=== PATIENT | male | born 1965 | race Caucasian/White ===

== ENCOUNTER 2021-03-01 13:59 | Outpatient (REF) | payer MEDICARE, SELFPAY ==
[2021-03-01 14:59] LABS: Erythrocyte Sedimentation Rate 3 MM/HR (0-15)
[2021-03-01 15:04] LABS: C Reactive Protein 0.02 mg/dL (< or = 0.50); Potassium 3.5 mmol/L (3.3-5.1)
[2021-03-02 08:42] LABS: Lyme Abs Screen <0.90 index
== END 2021-03-01 14:00 | disposition home or self-care (01) ==
LOC: HO.LNP 13:59
PROVIDERS: Visit Provider Internal Medicine
DX: E87.6 Hypokalemia (principal); M31.6 Other giant cell arteritis; T14.8XXA Other injury of unspecified body region, initial encounter
CPT/HCPCS: 84132; 85652; 86140; 86617; 86618

== ENCOUNTER 2021-08-09 10:08 | Outpatient (REF) | payer MEDICARE, SELFPAY ==
[2021-08-09 10:11] LABS: MANUAL DIFF FLAG NO
[2021-08-09 10:50] LABS: Basophils Percent Auto 0.7 % (0-2); Eosinophils Absolute Auto 0.2 X10*3/uL (0.0-0.4); Eosinophils Percent Auto 4.2 % (0-4); Hematocrit 39.3 % (42-52); Hemoglobin 13.7 g/dl (14.0-18.0); Imm Gran Abs Auto 0.01 X10*3/uL (0.00-0.03); Imm Gran Pct Auto 0.2 % (0.0-0.4); Lymphocytes Absolute Auto 1.7 X10*3/uL (1.2-4.9); Lymphocytes Percent Auto 28.6 % (20-40); Mean Corpuscular HGB Conc 34.9 g/dl (31.0-36.0); Mean Corpuscular Hemoglobin 31.3 pg (27.0-33.0); Mean Corpuscular Volume 89.7 fL (80-98); Mean Platelet Volume 9.1 fL (9.4-12.4); Monocytes Absolute Auto 0.5 X10*3/uL (0.1-1.2); Monocytes Percent Auto 8.1 % (2-11); Neutrophils Absolute Auto 3.4 X10*3/uL (2.0-8.3); Neutrophils Percent Auto 58.2 % (45-73); Platelet Count 196 X10*3/uL (160-400); Red Blood Count 4.38 X10*6/uL (4.60-5.80); Red Cell Distribution Width 13.2 % (11.0-16.0); White Blood Count 5.8 X10*3/uL (4.8-10.8)
[2021-08-09 11:07] LABS: Appearance Urine CLEAR; Color Urine YELLOW; Glucose Urine UA NEG (NEG); Leukocyte Esterase Urine NEG (NEG); Nitrite Urine NEG (NEG); PH 6.5 (5.0-8.0); Urine Blood NEG (NEG); Urine Ketones NEG (NEG); Urine Protein NEG (NEG-TRACE)
[2021-08-09 11:23] LABS: Alanine Aminotransferase 24 U/L (0-40); Albumin Level 4.2 g/dL (3.5-5.0); Alkaline Phosphatase 60 U/L (39-117); Anion Gap 10 (12-20); Aspartate Amino Transferase 21 U/L (5-37); Bilirubin Total 0.7 mg/dL (0.0-1.0); Blood Urea Nitrogen 21 mg/dL (9-16); Calcium 8.9 mg/dL (8.4-10.2); Carbon Dioxide 25 mmol/L (22-29); Chloride 107 mmol/L (96-108); Cholesterol 124 mg/dL; Estimated Glomerular Filt Rate > 60; Glucose Fasting 102 mg/dL (60-99); HDL Cholesterol 31 mg/dL; LDL Cholesterol Calculated 72 mg/dl; Potassium 3.4 mmol/L (3.3-5.1); Sodium 139 mmol/L (135-145); Total Protein 6.5 g/dL (6.5-8.0); Triglycerides 107 mg/dL
[2021-08-09 11:51] LABS: PSA,Total (Free>4and<10) 0.35 ng/mL (0.00-4.00)
[2021-08-09 12:49] LABS: Creatinine Urine 151.13 mg/dL; Microalbum/Creatinine Ratio Ur 5.2 ug/mg cr
[2021-08-10 07:31] LABS: Estimated Average Glucose 97 mg/dL
== END 2021-08-09 10:09 | disposition home or self-care (01) ==
LOC: HO.LNP 10:08
PROVIDERS: Visit Provider Internal Medicine
DX: Z00.00 Encounter for general adult medical examination without abnormal findings (principal); E87.6 Hypokalemia; R73.09 Other abnormal glucose; I10 Essential (primary) hypertension; Z12.5 Encounter for screening for malignant neoplasm of prostate
CPT/HCPCS: 80053; 80061; 81003; 82043; 83036; 84153; 85025

== ENCOUNTER 2021-08-15 15:37 | Outpatient (REF) | payer OTHER, SELFPAY ==
[2021-08-15 15:41] LABS: MANUAL DIFF FLAG NO
[2021-08-15 15:49] LABS: Basophils Percent Auto 0.6 % (0-2); Eosinophils Absolute Auto 0.2 X10*3/uL (0.0-0.4); Eosinophils Percent Auto 3.4 % (0-4); Hematocrit 40.4 % (42-52); Hemoglobin 14.2 g/dl (14.0-18.0); Imm Gran Abs Auto 0.03 X10*3/uL (0.00-0.03); Imm Gran Pct Auto 0.5 % (0.0-0.4); Lymphocytes Absolute Auto 1.3 X10*3/uL (1.2-4.9); Lymphocytes Percent Auto 20.2 % (20-40); Mean Corpuscular HGB Conc 35.1 g/dl (31.0-36.0); Mean Corpuscular Hemoglobin 31.7 pg (27.0-33.0); Mean Corpuscular Volume 90.2 fL (80-98); Mean Platelet Volume 9.2 fL (9.4-12.4); Monocytes Absolute Auto 0.5 X10*3/uL (0.1-1.2); Monocytes Percent Auto 7.3 % (2-11); Neutrophils Absolute Auto 4.4 X10*3/uL (2.0-8.3); Platelet Count 218 X10*3/uL (160-400); Red Blood Count 4.48 X10*6/uL (4.60-5.80); Red Cell Distribution Width 13.4 % (11.0-16.0); White Blood Count 6.4 X10*3/uL (4.8-10.8)
[2021-08-15 16:23] LABS: Iron 74 mcg/dL (45-160); Percent Iron Saturation 28 % (15-50); Total Iron Binding Capacity 265 mcg/dL (228-428); Unsaturated Iron Binding 191 ug/dL
[2021-08-15 16:58] LABS: Folate 5.5 ng/mL (> or = 4.0); Vitamin B12 233 pg/mL (200-900)
== END 2021-08-15 15:38 | disposition home or self-care (01) ==
LOC: HO.LNP 15:37
PROVIDERS: Visit Provider Internal Medicine
DX: D63.8 Anemia in other chronic diseases classified elsewhere (principal)
CPT/HCPCS: 82607; 82746; 83540; 85025

== ENCOUNTER 2021-11-01 07:19 | Day surgery (SDC) | payer OTHER, SELFPAY ==
--- NOTE | 2021-10-31 13:19 | HO.ANESPROP2 ---
Documented by User: Loli Le NP 10/31/21 13:20 HPI - Anesthesia Eval Consult details Narrative: 56yo M for Upper Endoscopy and Colonoscopy FORMERLY [facility], [facility] Past Medical History Medical History Anemia GERD (gastroesophageal reflux disease) Surgical History Surgical History History of colon surgery Social History Social History Advance Directives: No Advance Directives Information Provided: No Exam Exam Date and Time: October 31, 2021 131 Pertinent Lab Results Pertinent Lab Results: Laboratory Tests 08/09/21 08/15/21 07:45 11:00 WBC 6.4 Hgb 14.2 Hct 40.4 L Plt Count 218 Sodium 139 Potassium 3.4 Chloride 107 Carbon Dioxide 25 BUN 21 H Creatinine 1.04 Assessment and Plan Assessment Anesthesia Assessment: Chart Reviewed Documented by User: Lucero Abraham MD 11/01/21 07:44 FOR[facility]LY [facility], [facility] Past Medical History Medical History Anemia GERD (gastroesophageal reflux disease) Functional capacity: independent ambulation Family History Family history of problems with anesthesia: No Surgical History Surgical History History of colon surgery History of Problems with Anesthesia: No Social History Social History Advance Directives: No Advance Directives Information Provided: No Exam Airway Mallampati Class: IV TM Dist: >3cm Neck ROM: Full Heart: RRR Lungs: CTA Assessment and Plan Assessment Anesthesia Assessment: Anesthesia Plan Discussed Final Anesthetic Review Family History of Problems with Anesthesia: No History of Problems with Anesthesia: No ASA Class: III Final Preanesthetic Review: No Changes in Pt Med Stat, Meds/Allgs Chart Reviewed, Consent Obtained/Reviewed and Anes Risks/Benef Reviewed Patient Risk: Low Procedure Risk: Low Anesthetic Plan Anesthetic Plan: MAC: Disposition: Standard PACU
[2021-11-01 08:04] VITALS: BP 122/87; PULSE 56; RESP 18; TEMP 36.5; O2SAT 98; BMI 29.5
--- NOTE | 2021-11-01 08:04 | MHC.SHP ---
Pre-Procedural Eval Section A Date of Service: 11/01/21 The patient is an INPATIENT: No Changes since office visit: No Cold of Flu in the past 2 weeks, No New Medical Problems, No Changes in Medication and No Patient answered all questions The History & Physical has been completed within 30 days and I have reviewed it.: Yes Section B Chief Complaint: Anemia, GERD Plan I have reviewed the history and physical and performed a pertinent physical examination on my patient. No changes have occurred unless specified.
[2021-11-01] MEDS: Lactated Ringers 1,000 ML 50 ML IVCONT (08:17)
[2021-11-01 09:04] VITALS: BP 118/80; PULSE 52; RESP 16; TEMP 36.3; O2SAT 100
--- NOTE | 2021-11-01 09:15 | P.BOP_ITS ---
Brief Operative Note Date of Service: 11/01/21 Pre-op diagnosis: anemia, gerd, change in bowels Post-op diagnosis: same (colon p olyps) Surgeon: Lucas Blanc Anesthesia: MAC Was an Payroll And Benefits Manager used for this Procedure?: No Estimated blood loss (mL): 5 Pathology: other (bxs antrum, duodenum, egj, polypps x2) Condition: stable Disposition: PACU
[2021-11-01 09:19] VITALS: BP 122/89; PULSE 56; RESP 16; TEMP 36.3; O2SAT 98
--- NOTE | 2021-11-01 09:54 | OP_ITS ---
SURGEON: Lucas Blanc MD INDICATIONS: Anemia and gastroesophageal reflux disease and change in bowel function. PREOPERATIVE DIAGNOSIS: POSTOPERATIVE DIAGNOSIS: PROCEDURE PERFORMED: ESTIMATED BLOOD LOSS: COMPLICATIONS: ANESTHESIA: ASSISTANTS: SPECIMENS: PROCEDURES: Upper endoscopy with biopsy, colonoscopy to the terminal ileum with biopsy. MEDICATIONS: Monitored anesthesia care. DESCRIPTION OF PROCEDURE: History and physical performed. The risks and benefits of the procedure were explained to the patient. Informed consent was obtained. The patient was placed in left lateral decubitus position. The Olympus video gastroscope was introduced into the esophagus, stomach, and duodenum. Examination was performed. The scope was removed. He was repositioned for colonoscopy. A digital rectal exam was performed and was found to be normal. The Olympus pediatric video colonoscope was introduced into the rectum and advanced to the cecum without difficulty. The cecum was identified by transillumination, palpation, and identification of ileocecal valve. Examination was performed. The scope was removed. He tolerated both procedures well and returned to recovery room in stable condition. FINDINGS: Upper endoscopy. Esophagus: The esophagus was normal. There was no esophagitis. The EG junction was slightly irregular. This was biopsied. Stomach: The stomach showed no evidence of masses, ulcers, or polyps. Antral biopsies were obtained to rule out H pylori. Duodenum: The bulb and second portion were normal. Biopsies were obtained from the second portion to evaluate for any malabsorption process. Colonoscopy: The terminal ileum was normal. The visualized colonic mucosa was normal. There was mild sigmoid diverticulosis. The sigmoid anastomosis from his prior resection could not be definitely identified. Two polyps were identified, removed with biopsy forceps. Both measured less than 5 mm and they were located at 15 cm and in the rectum. The quality of the prep was good. IMPRESSION: 1. Gastroesophageal reflux disease. 2. Colon polyps. 3. Diverticulosis. RECOMMENDATIONS: Follow up the biopsy results. MD KAMRON Lancaster/IAN / [id number]
--- NOTE | 2021-11-01 10:54 | HO.POSTANES ---
Post Anesthesia Evaluation Post Anesthesia Evaluation Vital Signs: Vital Signs Temp Pulse Resp BP Pulse Ox 11/01/21 09:19 97.3 F 56 16 122/89 98 11/01/21 09:04 97.3 F 52 16 118/80 100 11/01/21 08:04 97.7 F 56 18 122/87 98 Anesthesia: Monitored Mental Status: Awake Pain Control: Satisfactory Nausea/Vomiting: None Hydration: Adequate Anesthesia-Related Issues: No Anes. Related Issues
== END 2021-11-01 09:36 | disposition home or self-care (01) ==
PROVIDERS: PCP Internal Medicine; Visit Provider Internal Medicine Gastroenterology
PROC: (CPT 45380; principal; 2021-11-01 08:20)
DX: D64.9 Anemia, unspecified (principal); R19.4 Change in bowel habit; D12.7 Benign neoplasm of rectosigmoid junction; D12.8 Benign neoplasm of rectum; K57.30 Diverticulosis of large intestine without perforation or abscess without bleeding; K21.9 Gastro-esophageal reflux disease without esophagitis; Z90.49 Acquired absence of other specified parts of digestive tract; Z88.8 Allergy status to other drugs, medicaments and biological substances
CPT/HCPCS: 45380; 43239; 88305; 88342

== ENCOUNTER 2021-11-11 10:43 | Outpatient (REF) | payer OTHER, SELFPAY ==
[2021-11-11 10:46] LABS: MANUAL DIFF FLAG NO
[2021-11-11 11:17] LABS: Basophils Percent Auto 0.7 % (0-2); Eosinophils Absolute Auto 0.1 X10*3/uL (0.0-0.4); Eosinophils Percent Auto 3.2 % (0-4); Hematocrit 39.4 % (42.0-52.0); Hemoglobin 13.8 g/dl (14.0-18.0); Imm Gran Abs Auto 0.01 X10*3/uL (0.00-0.03); Imm Gran Pct Auto 0.2 % (0.0-0.4); Lymphocytes Absolute Auto 1.2 X10*3/uL (1.2-4.9); Lymphocytes Percent Auto 27.6 % (20-40); Mean Corpuscular Hemoglobin 31.5 pg (27.0-33.0); Mean Platelet Volume 9.2 fL (9.4-12.4); Monocytes Absolute Auto 0.4 X10*3/uL (0.1-1.2); Monocytes Percent Auto 8.3 % (2-11); Neutrophils Absolute Auto 2.6 x10*3/uL (2.0-8.3); Platelet Count 218 X10*3/uL (160-400); Red Blood Count 4.38 X10*6/uL (4.60-5.80); Red Cell Distribution Width 13.3 % (11.0-16.0); White Blood Count 4.3 X10*3/uL (4.8-10.8)
[2021-11-11 11:38] LABS: Alanine Aminotransferase 26 U/L (0-40); Albumin Level 4.1 g/dL (3.5-5.0); Alkaline Phosphatase 63 U/L (39-117); Anion Gap 10 (12-20); Aspartate Amino Transferase 25 U/L (5-37); Bilirubin Total 0.4 mg/dL (0.0-1.0); Blood Urea Nitrogen 21 mg/dL (9-16); Calcium 8.9 mg/dL (8.4-10.2); Carbon Dioxide 24 mmol/L (22-29); Chloride 110 mmol/L (96-108); Estimated Glomerular Filt Rate > 60; Glucose Random 106 mg/dL (60-115); Iron 120 mcg/dL (45-160); Percent Iron Saturation 44 % (15-50); Potassium 3.6 mmol/L (3.3-5.1); Sodium 140 mmol/L (135-145); Total Iron Binding Capacity 272 mcg/dL (228-428); Total Protein 6.9 g/dL (6.5-8.0); Unsaturated Iron Binding 152 ug/dL
[2021-11-11 11:53] LABS: Vitamin D 25-OH Total 19.6 ng/mL (>30)
[2021-11-11 12:34] LABS: Folate 11.3 ng/mL (> or = 4.0); Vitamin B12 279 pg/mL (200-900)
== END 2021-11-11 10:44 | disposition home or self-care (01) ==
LOC: HO.LNP 10:43
PROVIDERS: PCP Internal Medicine; Visit Provider Internal Medicine
DX: N18.9 Chronic kidney disease, unspecified (principal); D63.8 Anemia in other chronic diseases classified elsewhere; E87.6 Hypokalemia
CPT/HCPCS: 80053; 82306; 82607; 82746; 83540; 85025

== ENCOUNTER 2022-01-10 11:14 | Outpatient (REF) | payer OTHER, SELFPAY ==
[2022-01-10 11:20] LABS: MANUAL DIFF FLAG NO
[2022-01-10 11:27] LABS: Basophils Percent Auto 0.6 % (0-2); Eosinophils Absolute Auto 0.2 X10*3/uL (0.0-0.4); Eosinophils Percent Auto 4.5 % (0-4); Hemoglobin 13.9 g/dl (14.0-18.0); Imm Gran Abs Auto 0.01 X10*3/uL (0.00-0.03); Imm Gran Pct Auto 0.2 % (0.0-0.4); Lymphocytes Absolute Auto 1.8 X10*3/uL (1.2-4.9); Lymphocytes Percent Auto 34.9 % (20-40); Mean Corpuscular HGB Conc 34.8 g/dl (31.0-36.0); Mean Corpuscular Hemoglobin 30.9 pg (27.0-33.0); Mean Corpuscular Volume 88.9 fL (80.0-98.0); Monocytes Absolute Auto 0.5 X10*3/uL (0.1-1.2); Monocytes Percent Auto 8.8 % (2-11); Neutrophils Absolute Auto 2.6 x10*3/uL (2.0-8.3); Platelet Count 218 X10*3/uL (160-400); Red Cell Distribution Width 12.8 % (11.0-16.0); White Blood Count 5.1 X10*3/uL (4.8-10.8)
== END 2022-01-10 11:15 | disposition home or self-care (01) ==
LOC: HO.LNP 11:14
PROVIDERS: Visit Provider Internal Medicine
DX: D64.9 Anemia, unspecified (principal)
CPT/HCPCS: 85025

== ENCOUNTER 2022-09-08 10:28 | Outpatient (REF) | payer OTHER, SELFPAY ==
[2022-09-08 10:32] LABS: MANUAL DIFF FLAG NO
[2022-09-08 10:49] LABS: Basophils Percent Auto 0.8 % (0-2); Eosinophils Absolute Auto 0.3 X10*3/uL (0.0-0.4); Eosinophils Percent Auto 5.1 % (0-4); Hematocrit 42.9 % (42.0-52.0); Hemoglobin 15.2 g/dl (14.0-18.0); Imm Gran Abs Auto 0.01 X10*3/uL (0.00-0.03); Imm Gran Pct Auto 0.2 % (0.0-0.4); Lymphocytes Absolute Auto 1.8 X10*3/uL (1.2-4.9); Mean Corpuscular HGB Conc 35.4 g/dl (31.0-36.0); Mean Corpuscular Hemoglobin 31.5 pg (27.0-33.0); Mean Platelet Volume 9.1 fL (9.4-12.4); Monocytes Absolute Auto 0.4 X10*3/uL (0.1-1.2); Monocytes Percent Auto 7.1 % (2-11); NRBC Pct Auto 0.6 /100WBC (0.0-0.2); Neutrophils Absolute Auto 2.9 x10*3/uL (2.0-8.3); Neutrophils Percent Auto 53.8 % (45-73); Platelet Count 211 X10*3/uL (160-400); Red Blood Count 4.82 X10*6/uL (4.60-5.80); Red Cell Distribution Width 12.9 % (11.0-16.0); White Blood Count 5.3 X10*3/uL (4.8-10.8)
[2022-09-08 10:56] LABS: Appearance Urine Clear; Color Urine Dark Yellow; Glucose Urine UA Negative (Negative); Leukocyte Esterase Urine Negative (Negative); Nitrite Urine Negative (Negative); Urine Blood Negative (Negative); Urine Ketones Negative (Negative); Urine Protein Negative (Neg-Trace)
[2022-09-08 11:02] LABS: Bacteria Urine None Seen (None Seen); Hyaline Casts Urine 0-2 /LPF (0-2); RBC Urine 0-2 /HPF (0-2); Squamous Epithelial Cell Urine 0-2 /HPF (0-2); WBC Urine 0-5 /HPF (0-5)
[2022-09-08 11:10] LABS: Estimated Average Glucose 97 mg/dL
[2022-09-08 11:20] LABS: Alanine Aminotransferase 18 U/L (0-40); Albumin Level 4.7 g/dL (3.5-5.0); Alkaline Phosphatase 77 U/L (39-117); Anion Gap 14 (12-20); Aspartate Amino Transferase 23 U/L (5-37); Bilirubin Total 0.8 mg/dL (0.0-1.0); Blood Urea Nitrogen 16 mg/dL (9-16); Calcium 9.4 mg/dL (8.4-10.2); Carbon Dioxide 26 mmol/L (22-29); Chloride 105 mmol/L (96-108); Cholesterol 121 mg/dL; Estimated Glomerular Filt Rate > 60; Glucose Fasting 99 mg/dL (60-99); HDL Cholesterol 27 mg/dL; LDL Cholesterol Calculated 65 mg/dl; PSA,Total (Free>4and<10) 0.35 ng/mL (0.00-4.00); Potassium 4.2 mmol/L (3.3-5.1); Sodium 141 mmol/L (135-145); Total Protein 7.6 g/dL (6.5-8.0); Triglycerides 147 mg/dL
[2022-09-08 11:25] LABS: Creatinine Urine 211.48 mg/dL
== END 2022-09-08 10:29 | disposition home or self-care (01) ==
LOC: HO.LNP 10:28
PROVIDERS: Visit Provider Internal Medicine
DX: Z00.00 Encounter for general adult medical examination without abnormal findings (principal); E87.6 Hypokalemia; R73.09 Other abnormal glucose; I10 Essential (primary) hypertension; K75.81 Nonalcoholic steatohepatitis (NASH); D63.8 Anemia in other chronic diseases classified elsewhere; Z12.5 Encounter for screening for malignant neoplasm of prostate
CPT/HCPCS: 80053; 80061; 81001; 82043; 83036; 84153; 85025

== ENCOUNTER → 2023-04-14 11:29 | Outpatient (BNVA) | payer OTHER, SELFPAY | PROVIDERS: PCP Internal Medicine; Visit Provider Surgery Vascular Surgery ==

== ENCOUNTER → 2023-05-28 10:02 | Outpatient (BNVA) | payer OTHER, SELFPAY | PROVIDERS: PCP Internal Medicine; Visit Provider Surgery Vascular Surgery ==

== ENCOUNTER 2023-07-09 12:14 | Outpatient (REF) | payer OTHER, SELFPAY ==
[2023-07-09 12:19] LABS: MANUAL DIFF FLAG NO
[2023-07-09 12:25] LABS: Basophils Percent Auto 0.7 % (0-2); Eosinophils Absolute Auto 0.2 X10*3/uL (0.0-0.4); Eosinophils Percent Auto 4.2 % (0-4); Hematocrit 40.5 % (42.0-52.0); Imm Gran Abs Auto 0.01 X10*3/uL (0.00-0.03); Imm Gran Pct Auto 0.2 % (0.0-0.4); Lymphocytes Absolute Auto 1.4 X10*3/uL (1.2-4.9); Lymphocytes Percent Auto 29.8 % (20-40); Mean Corpuscular HGB Conc 34.6 g/dl (31.0-36.0); Mean Corpuscular Hemoglobin 31.5 pg (27.0-33.0); Mean Corpuscular Volume 91.2 fL (80.0-98.0); Mean Platelet Volume 9.3 fL (9.4-12.4); Monocytes Absolute Auto 0.4 X10*3/uL (0.1-1.2); Monocytes Percent Auto 8.3 % (2-11); Neutrophils Absolute Auto 2.6 x10*3/uL (2.0-8.3); Neutrophils Percent Auto 56.8 % (45-73); Platelet Count 197 X10*3/uL (160-400); Red Blood Count 4.44 X10*6/uL (4.60-5.80); Red Cell Distribution Width 13.2 % (11.0-16.0); White Blood Count 4.6 X10*3/uL (4.8-10.8)
[2023-07-09 12:30] LABS: Appearance Urine Clear; Color Urine Yellow; Glucose Urine UA Negative (Negative); Leukocyte Esterase Urine Negative (Negative); Nitrite Urine Negative (Negative); Specific Gravity - Urine 1.015 (1.005-1.025); Urine Blood Negative (Negative); Urine Ketones Negative (Negative); Urine Protein Negative (Neg-Trace)
[2023-07-09 12:32] LABS: Bacteria Urine None Seen (None Seen); Hyaline Casts Urine 0-2 /LPF (0-2); RBC Urine 0-2 /HPF (0-2); Squamous Epithelial Cell Urine 0-2 /HPF (0-2); WBC Urine 0-5 /HPF (0-5)
[2023-07-09 12:35] LABS: Alanine Aminotransferase 27 U/L (0-40); Albumin Level 4.4 g/dL (3.5-5.0); Alkaline Phosphatase 73 U/L (39-117); Anion Gap 10 (12-20); Aspartate Amino Transferase 27 U/L (5-37); Bilirubin Total 0.7 mg/dL (0.0-1.0); Blood Urea Nitrogen 17 mg/dL (9-16); Calcium 9.2 mg/dL (8.4-10.2); Carbon Dioxide 27 mmol/L (22-29); Chloride 106 mmol/L (96-108); Cholesterol 116 mg/dL; Estimated Average Glucose 94 mg/dL; Estimated Glomerular Filt Rate > 60; Glucose Fasting 100 mg/dL (60-99); HDL Cholesterol 32 mg/dL; Hemoglobin A1c % 4.9 %; LDL Cholesterol Calculated 68 mg/dl; Potassium 3.9 mmol/L (3.3-5.1); Sodium 139 mmol/L (135-145); Total Protein 7.4 g/dL (6.5-8.0); Triglycerides 83 mg/dL
[2023-07-09 12:55] LABS: PSA,Total (Free>4and<10) 0.27 ng/mL (0.00-4.00)
[2023-07-09 13:14] LABS: Creatinine Urine 102.31 mg/dL; Microalbum/Creatinine Ratio Ur 4.8 ug/mg cr
== END 2023-07-09 12:15 | disposition home or self-care (01) ==
LOC: HO.LNP 12:14
PROVIDERS: Visit Provider Internal Medicine
DX: Z00.00 Encounter for general adult medical examination without abnormal findings (principal); Z12.5 Encounter for screening for malignant neoplasm of prostate; I10 Essential (primary) hypertension; R73.03 Prediabetes; E87.6 Hypokalemia
CPT/HCPCS: 80053; 80061; 81001; 82043; 83036; 84153; 85025

== ENCOUNTER 2023-12-11 13:29 | Outpatient (REF) | payer OTHER, SELFPAY ==
[2023-12-11 16:13] LABS: IDNOW Serial# 08D9AD1C
[2023-12-11 16:14] LABS: Strep A Nucleic Acid Negative (Negative)
== END 2023-12-11 13:30 | disposition home or self-care (01) ==
LOC: HO.LAB 13:29
PROVIDERS: PCP Internal Medicine; Visit Provider Internal Medicine
DX: B37.0 Candidal stomatitis (principal); M51.16 Intervertebral disc disorders with radiculopathy, lumbar region
CPT/HCPCS: 87070; 87651

== ENCOUNTER 2024-04-21 10:51 | Outpatient (REF) | payer OTHER, SELFPAY ==
[2024-04-21 10:56] LABS: MANUAL DIFF FLAG NO
[2024-04-21 11:14] LABS: Appearance Urine Clear; Basophils Percent Auto 0.5 % (0-2); Color Urine Dark Yellow; Eosinophils Absolute Auto 0.1 X10*3/uL (0.0-0.4); Eosinophils Percent Auto 2.9 % (0-4); Glucose Urine UA Negative (Negative); Hemoglobin 14.5 g/dl (14.0-18.0); Imm Gran Abs Auto 0.01 X10*3/uL (0.00-0.03); Imm Gran Pct Auto 0.2 % (0.0-0.4); Leukocyte Esterase Urine Negative (Negative); Lymphocytes Absolute Auto 1.3 X10*3/uL (1.2-4.9); Lymphocytes Percent Auto 30.9 % (20-40); Mean Corpuscular HGB Conc 35.4 g/dl (31.0-36.0); Mean Corpuscular Hemoglobin 31.4 pg (27.0-33.0); Mean Corpuscular Volume 88.7 fL (80.0-98.0); Mean Platelet Volume 9.3 fL (9.4-12.4); Monocytes Absolute Auto 0.3 X10*3/uL (0.1-1.2); Monocytes Percent Auto 7.7 % (2-11); Neutrophils Absolute Auto 2.4 x10*3/uL (2.0-8.3); Neutrophils Percent Auto 57.8 % (45-73); Nitrite Urine Negative (Negative); Platelet Count 191 X10*3/uL (160-400); Red Blood Count 4.62 X10*6/uL (4.60-5.80); Red Cell Distribution Width 13.1 % (11.0-16.0); Specific Gravity - Urine 1.015 (1.005-1.025); Urine Blood Negative (Negative); Urine Ketones Negative (Negative); Urine Protein Negative (Neg-Trace); White Blood Count 4.1 X10*3/uL (4.8-10.8)
[2024-04-21 11:17] LABS: Bacteria Urine None Seen (None Seen); Hyaline Casts Urine 0-2 /LPF (0-2); RBC Urine 0-2 /HPF (0-2); Squamous Epithelial Cell Urine 0-2 /HPF (0-2); WBC Urine 0-5 /HPF (0-5)
[2024-04-21 11:32] LABS: Estimated Average Glucose 103 mg/dL; Hemoglobin A1c % 5.2 % (<6.0)
[2024-04-21 11:47] LABS: Alanine Aminotransferase 20 U/L (0-40); Albumin Level 4.4 g/dL (3.5-5.0); Alkaline Phosphatase 66 U/L (39-117); Anion Gap 12 (12-20); Aspartate Amino Transferase 19 U/L (5-37); Bilirubin Total 0.5 mg/dL (0.0-1.0); Blood Urea Nitrogen 12 mg/dL (9-16); Calcium 9.6 mg/dL (8.4-10.2); Carbon Dioxide 28 mmol/L (22-29); Chloride 105 mmol/L (96-108); Cholesterol 144 mg/dL (<200); Estimated Glomerular Filt Rate > 60; Glucose Fasting 101 mg/dL (60-99); HDL Cholesterol 34 mg/dL (>40); LDL Cholesterol Calculated 88 mg/dL (<100); Potassium 3.7 mmol/L (3.3-5.1); Sodium 141 mmol/L (135-145); Total Protein 7.1 g/dL (6.5-8.0); Triglycerides 112 mg/dL (<150)
[2024-04-21 12:23] LABS: Creatinine Urine 129.46 mg/dL; Microalbum/Creatinine Ratio Ur 6.9 ug/mg cr (<30)
== END 2024-04-21 10:52 | disposition home or self-care (01) ==
LOC: HO.LNP 10:51
PROVIDERS: Visit Provider Internal Medicine
DX: Z00.00 Encounter for general adult medical examination without abnormal findings (principal); E87.6 Hypokalemia; R73.09 Other abnormal glucose; I10 Essential (primary) hypertension; Z12.5 Encounter for screening for malignant neoplasm of prostate
CPT/HCPCS: 80053; 80061; 81001; 82043; 82570; 83036; 84153; 85025

== ENCOUNTER 2024-10-31 11:13 | Outpatient (REF) | payer OTHER, SELFPAY ==
[2024-10-31 12:03] LABS: PSA,Total (Free>4and<10) 0.38 ng/mL (0.00-4.00)
--- OUTSIDE RECORDS SUMMARY | 2024-11-02 15:06 | XMS_ITS ---
Author Organization Luke Almonte MD Address [address] [place] [phone] Care Team Providers Care Supervisor Cutting And Boning Name Role Phone Luke Almonte Primary Care Provider [phone] RESULTS Component Value Reference Range Notes PSA,Total (Free>4and<10) Reviewed date:10/31/2024 12:49:34 PM Interpretation: Performing Lab:[facility], [address] [place] [phone] Notes/Report: PSA,Total (Free>4and<10) 0.38 0.00-4.00 ng/mL A [...] Location Date Provider Diagnosis Luke Almonte MD [address] [place] [phone] 10/31/2024 Luke Almonte Rising PSA level R97.20 ASSESSMENTS Encounter Date Diagnosis Assessment Notes Treatment Notes Treatment Clinical Notes 10/31/2024 Rising PSA level (ICD-10 - R97.20) PLAN OF TREATMENT Next Appt Details Provider Name:Luke schulte, 04/24/2025 07:30:00 AM, [address] [place] [address], [place] [address], [place], [place], [phone], Provider Name:Luke schulte, 05/01/2025 01:00:00 PM, [address] [place] [address], [place] [address], [place], [place], [phone],
--- OUTSIDE RECORDS SUMMARY | 2024-11-02 15:06 | XMS_ITS ---
Author Organization Luke Almonte MD Address [address] [place] [phone] Care Team Providers Care Parent Partner Name Role Phone Luke Almonte Primary Care Provider [phone] ALLERGIES Allergen (clinical drug ingredient) Drug/Non Drug Allergy documented on EMR Reaction Allergy Type Onset Date Status rizatriptan Rizatriptan Benzoate rash Drug Allergy Active morphine Morphine Sulfate cardiac arrest Drug Allergy Active lisinopril Lisinopril rash Drug Allergy Activ e REASON FOR VISIT 6 mo f/u MEDICATIONS Medication SIG (Take, Route, Frequency, Duration) Notes [...] for 1 day(s) Active Vitamin B2 Active VITAL SIGNS BMI 27.87 kg/m2 11/01/2024 Blood pressure systolic 92 mm Hg 11/01/20 24 Blood pressure diastolic 66 mm Hg 024 Height 75 in 11/01/2024 Weight 223 lbs 11/01/2024 weight is down 4 pounds [facility] [place] 10-17-24 Encounters Encounter Location Date Provider Diagnosis Luke Almonte MD [address] [place] [address] [address] [place], [place] [phone] 11/01/2024 Luke Almonte Rising PSA level R97.20 and Fungal infection B49 ASSESSMENTS Encounter Date Diagnosis Assessment Notes Treatment Notes Treatment Clinical Notes 11/01/2024 Rising PSA level (ICD-10 - R97.20) has returned to normal 11/01/2024 Fungal infection (ICD-10 - B49) is going to go back on diflucan and is going to see derm in one month PLAN OF TREATMENT Medication Medication Name Sig Start Date Stop Date Notes Diflucan 100 MG 1 tablet Orally for 10 days 11/01/2024 Treatment Notes Assessment Notes Rising PSA level has returned to norm al Fungal infection is going to go back on diflucan and is going to see derm in one month Next Appt Details Follow Up: 6 Months complete , Reason: Provider Name:Luke schulte, 04/24/2025 07:30:00 AM, [address] [place] [address], Suite [facility], [place], [place], [phone], Provider Name:Luke schulte, 05/01/2025 01:00:00 PM, [address] [place] [address], [address], [place], [place], [phone], Progress Notes * Examination Category Sub-Category Detail Notes Genitourinary - Male SCROTUM: with a rash in inguinal crease General Examination GENERAL APPEARANCE: alert, w ell hydrated, in no distress
--- OUTSIDE RECORDS SUMMARY | 2024-11-02 15:06 | XMS_ITS ---
Author Organization Luke Almonte MD Address [address] [place] [phone] Care Team Providers Care Paper Sales Manager Name Role Phone Luke Almonte Primary Care Provider REASON FOR VISIT Resend Diflucan MEDICATIONS Medication SIG (Take, Route, Fr equency, Duration) Notes Start Date End Date Status Diflucan 100 MG 1 tablet Orally daily for 10 days 11/01/2024 Active Encounters Encounter Location Date Provider Diagnosis Luke Almonte MD [address] [place] [phone] 11/01/2024 Luke Almonte Rising PSA level R97.20 ASSESSMENTS Encounter Date Diagnosis Assessment Notes Treatment Notes Treatment Clinical Notes 11/01/2024 Rising PSA level (ICD-10 - R97.20) PLAN OF TREATMENT Medication Medication Name Sig Start Date Stop Date Notes Diflucan 100 MG 1 tablet Orally daily for 10 days 11/01/20 24 Next Appt Details Provider Name:Luke schulte, 04/24/2025 07:30:00 AM, [address] [place] [address], [address], [place], [phone], Provider Name:Luke schulte, 05/01/2025 01:00:00 PM, [address] [place] [address], [address], [place], [phone],
--- OUTSIDE RECORDS SUMMARY | 2024-11-02 15:07 | XMS_ITS | Patient Health Record ---
Author Organization Luke Almonte MD Address [address] [place] [address] [phone] Care Team Providers Care Carpenter Maintenance Name Role Phone Luke Almonte Primary Care Provider [phone] ALLERGIES Allergen (clinical drug ingredient) Drug/Non Drug Allergy documented on EMR Reaction Allergy Type Onset Date Status rizatriptan Rizatriptan Benzoate rash Drug Allergy Active morphine Morphine Sulfate cardiac arrest Drug Allergy Active lisinopril Lisinopril rash Drug Allergy Activ e RESULTS Component Value Reference Range Notes Throat Culture Reviewed date:12/13/2023 05:40:00 PM Interpretation: Performing Lab:[address] [phone] Notes/Report: Throat Culture No Group A Beta-hemolytic Streptococci isolated. Strep A Nucleic Acid Reviewed date:12/11/2023 04:41:48 PM Interpretation: Performing Lab:[address] [place] [address] Notes/Report: [employer] Serial# [id number] Strep A Nucleic Acid Negative Negative DONE BY ID#[id number] All test results must be correlated with clinical findings. This test has not been evaluated for monitoring treatment of infection. Additional follow-up testing using the culture method is required if the result is negative and clinical symptoms persist, or in the event of an acute rheumatic fever outbreak. Complete Blood Count Auto Di ff Reviewed date:04/21/2024 12:35:13 PM Interpretation: Performing Lab:[facility], [address] [place] [phone] Notes/Report: White Blood Count 4.1 4.8-10.8 X10*3/uL Red Blood Count 4.62 4.60-5.80 X10*6/uL Hemoglobin 14.5 14.0-18.0 g/dl Hematocrit 41.0 42.0-52.0 % Mean Corpuscular Volume 88.7 80.0-98.0 fL Mean Corpuscular Hemoglobin 31.4 27.0-33.0 pg Mean Corpuscular HGB Conc 35.4 31.0-36.0 g/dl Red Cell Distribution Width 13.1 11.0-16.0 % Platelet Count 191 160-400 X10*3/uL Mean Platelet Volume 9.3 9.4-12.4 fL Neutrophils Percent Auto 57.8 45-73 % Imm Gran Pct Auto 0.2 0.0-0.4 % Lymphocytes Percent Auto 30.9 20-40 % Monocytes Percent Auto 7.7 2-11 % Eosinophils Percent Auto 2.9 0-4 % Basophils Percent Auto 0.5 0-2 % NRBC Pct Auto 0.0 0.0-0.2 /100WBC Neutrophils Absolute Auto 2.4 2.0-8.3 x10*3/u L Imm Gran Abs Auto 0.01 0.00-0.03 X10*3/uL Lymphocytes Absolute Auto 1.3 1.2-4.9 X10*3/u L Monocytes Absolute Auto 0.3 0.1-1.2 X10*3/uL Eosinophils Absolute Auto 0.1 0.0-0.4 X10*3/u L Basophils Absolute Auto 0.0 0.0-0.2 X10*3/uL NRBC Abs Auto 0.000 0.0-0.012 X10*3/uL Comprehensive [place]. Panel Fa st Reviewed date:04/21/2024 05:00:39 PM Interpretation: Performing Lab:[facility], [address] [place] [phone] Notes/Report: Sodium 141 135-145 mmol/L Potassium 3.7 3.3-5.1 mmol/L Chloride 105 96-108 mmol/L Carbon Dioxide 28 22-29 mmol/L Anion Gap 12 12-20 Blood Urea Nitrogen 12 9-16 mg/dL Creatinine 1.07 0.5-1.4 mg/dL Estimated Glomerular Filt Rate > 60 NOTE: For -[place]au[place] individuals, multiply the result by 1.210. Chronic Kidney Disease: Estimated GFR < 60 mL/min/1.73m2 Severe Kidney Disease: Estimated GFR < 15 mL/min/1.73m2 Glucose Fasting 101 60-99 mg/dL A fasting glucose from 100-125 mg/dl is considered impaired (pre-diabetes). Calcium 9.6 8.4-10.2 mg/dL Bilirubin Total 0.5 0.0-1.0 mg/dL Aspartate Amino Transferase 19 5-37 U/L Alanine Aminotransferase 20 0-40 U/L Total Protein 7.1 6.5-8.0 g/dL Albumin Level 4.4 3.5-5.0 g/dL Alkaline Phosphatase 66 39-117 U/L Lipid Panel Reviewed date:04/21/2024 04:46:19 PM Interpretation: Performing Lab:[facility], [address] [place] [phone] Notes/Report: Triglycerides 112 <150 mg/dL Desirable Triglyceride: less than 150 mg/dL Borderline High Triglyceride 150-199 mg/dL High Triglyceride: 200-499 mg/dL Very High Triglyceride: greater than or equal to 5OO mg/dL Cholesterol 144 <200 mg/dL Desirable Cholesterol: less than 200 mg/dL Borderline High Cholesterol: 200-239 mg/dL High Cholesterol: greater than 239 mg/dL LDL Cholesterol Calculated 88 <100 mg/dL Desirable LDL: less than 100 mg/dL Near Optimal/Above Optimal LDL: 110-129 mg/dL Borderline High LDL: 130-159 mg/dL High LDL: 160-189 mg/dL Very High LDL: greater than or equal to 190 mg/dL HDL Cholesterol 34 >40 mg/dL Desirable HDL: greater than 40 mg/dL Note: This HDL assay may give artificially low results in patients with liver disease. PSA,Total (Free>4and<10) Reviewed date:10/31/2024 11:20:30 AM Interpretation:see back 10-28-2024 Performing Lab:[address] [phone] Notes/Report: PSA,Total (Free>4and<10) 1.10 0.00-4.00 ng/mL A Free PSA was not [...] Mercedes Alinity i Chemiluminescent Microparticle Immunoassay (CMIA) Microalbumin, Random Reviewed date:04/21/2024 04:53:06 PM Interpretation: Performing Lab:[address] [phone] Notes/Report: Creatinine Urine 129.46 Microalbumin Urine 9.0 Microalbum/Creatinine Ratio Ur 6.9 <30 ug/mg cr Albumin/Creatinine Ratio Reference Ranges: Normal: < 30 ug/mg creatinine Microalbuminuria: 30 - 300 ug/mg creatinine Clinical Albuminuria: > 300 ug/mg creatinine Hemoglobin A1c Reviewed date:04/21/2024 12:37:23 PM Interpretation: Performing Lab:[address] [phone] Notes/Report: Hemoglobin A1c % 5.2 <6.0 % Hemoglobin A1C Reference Range Adults: 4.8 - 6.0 % Non diabetic: < 6.0 % Goal: < 7.0 % Additional Action Suggested: > 8.0 % Note: Hemoglobin A1c results are invalid for patients with abnormal amounts of HbF. Blood transfusions may impact the HbA1c concentration in the patient sample. Estimated Average Glucose 103 eAG = Estimated average glucose which is %A1C expressed as average glucose, using the formula of the [id number]-[id number] Average Glucose study (ADAG), Diabetes Care, Vol.31,#8, 2007 UA ClnCatch+Micro w/rflx Cul t Reviewed date:04/21/2024 07:17:53 PM Interpretation: Performing Lab:[facility], [address] [place] [phone] Notes/Report: Urine, Clean Catch Color Urine Dark Yellow Appearance Urine Clear PH 8.0 5.0-9.0 Glucose Urine UA Negative Negative mg/dL Urine Blood Negative Negative Specific [place] - Urine 1.015 1.005-1.025 Urine Protein Negative Neg-Trace mg/dL Urine Ketones Negative Negative mg/dL Nitrite Urine Negative Negative Leukocyte Esterase Urine Negative Negative RBC Urine 0-2 0-2 /HPF WBC Urine 0-5 0-5 /HPF Squamous Epithelial Cell Urine 0-2 0-2 /HPF Bacteria Urine None Seen None Seen Hyaline Casts Urine 0-2 0-2 /LPF Occult Blood, Stool, Guaiac Reviewed date:04/28/2024 01:57:39 PM Interpretation:Negative Performing Lab: Notes/Report: Negative Occult Blood, Stool, Guaiac Neg PSA,Total (Free>4and<10) Reviewed date:10/31/2024 12:49:34 PM Interpretation: Performing Lab:[facility], [address] [place] [phone] Notes/Report: PSA,Total (Free>4and<10) 0.38 0.00-4.00 ng/mL A [...] i Chemiluminescent Microparticle Immunoassay (CMIA) REASON FOR REFERRAL No Information MEDICATIONS Medication SIG (Take, Route, Frequency, Duration) Notes Start Date End Date Status valACYclovir HCl 1 GM TAKE 1 TABLET BY Kelvin SANCHEZ TWICE DAILY FOR 5 DAYS for 5 Active ProAir RespiClick 108 (90 Base) MCG/ACT 2 puffs as needed Inhalation every 6 hrs for 25 Not-Taking Triamcinolone Acetonide 0.1 % 1 application Externally Two times a Week for 10 days 08/23/2024 Active Relpax 40 MG TAKE 1 TABLET BY JYOTI TH EVERY DAY NEEDED for 12 Not-Taking Omeprazole 20 MG TAKE 1 CAPSULE ONCE DAILY for 90 Active SUMAtriptan Succinate 100 TAKE 1 TABLET BY MOUTH DAILY for 9 Not-Taking Nurtec 75 MG 1 tablet on the tong ue and allow to dissolve Orally Active Ketoconazole 2 % 1 application Externally Once a day for 14 days 10/17/2024 Active Diflucan 100 MG 1 tablet Orally marco y for 10 days 11/01/2024 Active Rizatriptan Benzoate 5 MG 1 tablet Orall y Once a day for 1 day(s) Active Diflucan 100 MG 1 tablet Orally twic e a day for 14 days 08/23/2024 Not-Taking Vitamin B2 Active Naratriptan HCl 2.5 MG 1 tablet Orally O nce a day for 1 day(s) Not-Taking Lexapro 10 MG TAKE 1 TABLET ONCE DAILY Orally Active Topamax 50 MG 50mg mg PM Orally twice a day Not-Taking Triamcinolone Acetonide 0.5 % 1 application Externally Two times a Week for 30 days 08/15/2021 Active Potassium Chloride ER 8 MEQ take 1 tablet by mouth every day with food Orally Once a day for 90 days Not-Taking Aspir-Low 81 MG 1 tablet Orally Once a day for 30 day(s) 03/16/2023 Active Cyclobenzaprine HCl 10 MG TAKE 1/2 TABLE T BY MOUTH EVERY DAY AT BEDTIME for 60 Not-Taking Verapamil HCl ER 240 MG TAKE 1 TABLET ON CE A DAY for 90 Active Eletriptan Hydrobromide 40 MG 1 tablet Orally Once a day for 1 day(s) Not-Taking Ondansetron 4 MG 1 tablet on the tong ue and allow to dissolve Orally Once a day for 30 day(s) Active Permethrin 5 % 1 application Externally Two times a Week for 7 days 08/27/2020 Not-Taking IMMUNIZATIONS Vaccine Route Administration Date Status Comme nts Flu Vaccine IM Intramuscular 08/02/2012 Administered TDaP IM Intramuscular 03/25/2013 Administered Flu Vaccine IM Intramuscular 07/29/2013 Administered Flu Vaccine IM Intramuscular 09/29/2014 Administered Fluarix Quadrivalent IM Intramuscular 08/13/2015 Leola red Fluarix Quadrivalent Unknown 09/02/2016 Administered At work Fluarix Quadrivalent IM Intramuscular 08/28/2017 Adminenmanuel red Shingrix IM Intramuscular 07/30/2018 Administered Shingrix IM Intramuscular 09/28/2018 Administered Fluarix Quadrivalent IM Intramuscular 10/05/2018 Adminenmanuel red Tetanus Unknown 03/25/2013 Administered PPSV23 (Pnemovax) IM Intramuscular 02/01/2019 Administered Fluarix Quadrivalent IM Intramuscular 09/01/2019 Adminenmanuel carr Prevnar 13 IM Intramuscular 07/10/2020 Administered SARS-COV-2 Pfizer Unknown 03/26/2021 Administered SARS-COV-2 Pfizer Unknown 03/05/2021 Administered Fluarix Quadrivalent IM Intramuscular 08/15/2021 Adminenmanuel carr SARS-COV-2 Pfizer Unknown 09/28/2021 Administered Fluarix Quadrivalent IM Intramuscular 09/08/2022 Adminenmanuel carr TDaP Unknown 12/05/2022 Administered SARS-COV-2 Pfizer Unknown 12/05/2022 Administered Fluarix Quadrivalent IM Intramuscular 07/31/2023 Adminemnanuel carr Fluarix Quadrivalent - 150 IM Intramuscular 08/23/2024 Adm inistered SOCIAL HISTORY Tobacco Use: Social History Observation Description Date Details (start date - stop date) Never Smoker NA - NA Sex Assigned At : Social History Observation Description Sex Assigned At Unknown Tobacco Use/Smoking Question Answer Notes Patient is a nonsmoker Additional Findings: Tobacco Non-User Cu rrent non-smoker, currently using no form of tobacco Alcohol Screen Question Answer Notes Did you have a drink containing alcohol in the p ast year? 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 Celiac artery compression syndrome (2910012) Problem Nonalcoholic steatohepatitis (VÁZQUEZ) (K75.81) Active confirmed Problem Gastroesophageal reflux disease without esophagitis (K21.9) Active confirmed 324547110 Problem Essential hypertension (I10) Active confirmed 68975610 Problem Prediabetes (R73.09) Active confirmed 315074 Problem Migraine without aura and with status migrainosus, not intractable (G43.001) Active confirmed 843901845 Problem ZABRINA (obstructive sleep apnea) (G47.33) Active confirmed 63200483 Problem Mild intermittent asthmatic bronchitis with acute exacerbation (J45.21) Active confirmed 046720425 Problem Diverticular disease (K57.90) Active confirmed 669052576 Problem 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 89416082 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 559415048 VITAL SIGNS Blood pressure diastolic 66 mm Hg 11/01/2024 christina ght is down 4 pounds since 10-17-24 Height 75 in 11/01/2024 weight is down 4 pounds since 10-17-24 Blood pressure systolic 92 mm Hg 11/01/2024 weig ht is down 4 pounds since 10-17-24 Weight 223 lbs 11/01/2024 weight is down 4 pounds since 10-17-24 BMI 27.87 kg/m2 11/01/2024 weight is down 4 pounds since 10-17-24 Encounters Encounter Location Date Provider Diagnosis Luke Almonte MD [address] [place] [address] Drive [address] [place] [id number] 04/28/2024 Luke Almonte Abnormal bone xray R93.7 ; Annual physical exam Z00.00 ; Rising PSA level R97.20 ; Prediabetes R73.09 ; Gastroesophageal reflux disease without esophagitis K21.9 ; Colon cancer screening Z12.11 and Depression screening Z13.31 Luke Almonte MD [address] [place] [id number] 08/23/2024 Luke Almonte Encounter for immunization Z23 and Jock itch B35.6 Luke Almonte MD [address] [place] [address] [address] [place] [id number] 04/21/2024 Luke Almonte Annual physical exam Z00.00 ; Hypokalemia E87.6 ; Prediabetes R73.09 and Essential hypertension I10 Luke Almonte MD [address] [place] [address] [address] [place] [id number] 10/31/2024 Luke Almonte Rising PSA level R97 .20 Luke Almonte MD [address] [place] [id number] 01/22/2024 Luke Almonte Acute pain of right knee M25.561 and Essential hypertension I10 Luke Almonte MD [address] [place] [id number] 11/27/2023 Luke Almonte Lumbar disc disease with radiculopathy M51.16 Luke Almonte MD [address] [place] [id number] 12/11/2023 Luke Almonte Lumbar disc disease with radiculopathy M51.16 and Thrush, oral B37.0 Luke Almonte MD [address] [place] [id number] 11/01/2024 Luke Almonte Rising PSA level R97 .20 and Fungal infection B49 Luke Almonte MD [address] [place] [id number] 11/03/2023 Luke Almonte Acute colitis K52.9 and Diverticular disease K57.90 Luke Almonte MD [address] [place] [id number] 05/13/2024 Luke Almonte Cold sore B00.1 Luke Almonte MD [address] [place] [id number] 06/23/2024 Luke Almonte Migraine without aur a and with status migrainosus, not intractable G43.001 and Cold sore B00.1 Luke Almonte MD [address] [place] [address] [id number] 10/17/2024 Luke Almonte Jock itch B35.6 Luke Almonte MD [address] [place] [id number] 12/03/2023 Luke Almonte Lumbar disc disease with radiculopathy M51.16 Luke Almonte MD [address] [place] [id number] 11/01/2024 Luke Almonte Rising PSA level R97 .20 ASSESSMENTS Encounter Date Diagnosis Assessment Notes Treatment Notes Treatment Clinical Notes 04/28/2024 Annual physical exam (ICD-10 - Z00.00) labs reviewed and discussed with patoent 04/28/2024 Abnormal bone xray (ICD-10 - R93.7) dentist found something on xray and advised to have oral surgeon. having trouble with finding a dentist that takes his insurance. advised to call the insurance to see if they have someone to see. not certain what they saw 08/23/2024 Encounter for immunization (ICD-10 - Z23) flu vaccine administered 08/23/2024 Jock itch (ICD-10 - B35.6) has tried multiple creams and it comes and goes. will add some milld steroids which should help with the discomfort, patient verbalized understanding of medication and directions for use 04/21/2024 Hypokalemia (ICD-10 - E87.6) 04/21/2024 Annual physical exam (ICD-10 - Z00.00) 10/31/2024 Rising PSA level (ICD-10 - R97.20) 01/22/2024 Essential hypertensi on (ICD-10 - I10) doing well 01/22/2024 Acute pain of right knee (ICD-10 - M25.561) need notes from [facility] IN febr/ they told him he needed to go on gout meds. should go back to [facility] to have joint injected and to see if there is uric acid crystals/ record request will be sent 11/27/2023 Lumbar disc disease with radiculopathy (ICD-10 - M51.16) Patient/Caregiver verbalizes understanding of medications side effects, interactions and warnings.Pending diagnostic testing/ order faxed to [facility] 12/11/2023 Lumbar disc disease with radiculopathy (ICD-10 - M51.16) mri didn't show any disease. had a torn meniscus 12/11/2023 Thrush, oral (ICD-10 - B37.0) if the strep is positive not to get the diflucan and will call in an antibiotic, pending testing 11/01/2024 Fungal infection (ICD-10 - B49) is going to go back on diflucan and is going to see derm in one month 11/01/2024 Rising PSA level (ICD-10 - R97.20) has returned to normal 11/03/2023 Diverticular disease (ICD-10 - K57.90) 11/03/2023 Acute colitis (ICD-1 0 - K52.9) need appt with dr milton/ had severe pain worse than when he had diverticulits. was treated for diverticulitis although the cat scan did not seem to show that. the colon looked inflamed and was treated for some sort of coliitis with antibioticsl they felt he needed another colonoscopy in 6 weeks. will make an appointment with dr milton and gave him a copy of the er report to take with him to dr milton 05/13/2024 Cold sore (ICD-10 - B00.1) patient verbalized understanding of medication and directions for use 06/23/2024 Cold sore (ICD-10 - B00.1) 06/23/2024 Migraine without aur a and with status migrainosus, not intractable (ICD-10 - G43.001) migraines are unstable. the new meds are causiing a rash whenever he takes them. had to stop the recent meds. [facility] are trying to discharge him to me even though he has been a patient there for years and is unstable. have told him to recall [facility] neuro 10/17/2024 Jock itch (ICD-10 - B35.6) patient verbalized understanding of medication and directions for use 12/03/2023 Lumbar disc disease with radiculopathy (ICD-10 - M51.16) 11/01/2024 Rising PSA level (ICD-10 - R97.20) 04/28/2024 Rising PSA level (ICD-10 - R97.20) is still well down in normal range but will recheck in 6 mo 04/21/2024 Prediabetes (ICD-10 - R73.09) 04/28/2024 Prediabetes (ICD-10 - R73.09) stable, no need for medication at this time 04/21/2024 Essential hypertensi on (ICD-10 - I10) 04/28/2024 Gastroesophageal reflux disease without esophagitis (ICD-10 - K21.9) stable, will continue current regiment 04/28/2024 Colon cancer screeni ng (ICD-10 - Z12.11) guaiac negative 04/28/2024 Depression screening (ICD-10 - Z13.31) negative screen PLAN OF TREATMENT Pending Test Test Name Order Date Barium : Upper GI Series 2011 Electrocardiogram (EKG) 03/04/2013 MRI LUMBAR SPINE NO CONTRAST 11/27/2023 Next Appt Details Provider Name:Luke Schafer ier, 04/24/2025 07:30:00 AM, [address], [address], [place], [place], [id number], Provider Name:Luke Schafer ier, 05/01/2025 01:00:00 PM, [address], [address], [place], [place], [phone], Insurance Providers Payer Name Payer Address Payer Phone Subscriber Number Group Number Insured Name Patient Relationship to Insured Coverage Start Date Coverage End Date [employer] [facility] [address] [place] [address] [id number] Steve Cabral Self - patient is the insured [address] [place] [phone] [id number] Steve Cabral Self - patient is the insured MEDICATIONS ADMINISTERED Medication Instructions Date of Administration Dosage Notes B12 08/16/2021 1 cm3 B12 09/13/2021 1 cm3 MEDICAL (GENERAL) HISTORY Medical History History ICD Code colonoscopy discussed 2013; colonoscopy 06/23/16 w/Dr. Phillips (repeat 10 yrs) colonoscopy 2020 with tubular adenoma, colonoscopy 11/12 pending path repeat in [address] milton Surgical History Surgery Date(Month/Year) divertticulits Left Superficial Temporal Artery Biopsy 07/2020
--- OUTSIDE RECORDS SUMMARY | 2024-11-02 15:07 | XMS_ITS ---
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 Role Phone Luke Almonte MD Primary Care Provider Anibal Dale Unavailable [phone] Allergies Allergen (clinical drug ingredient) Drug/Non Drug Allergy documented on EMR Reaction Allergy Type Onset Date Status sea food (uncoded) rash, breathing difficulties Allergy Active Shrimp Flavor rash,breathing difficulty Drug Allergy Active Adhesive rash Allergy Active morphine Morphine Drug Allergy Active REASON FOR VISIT r/s for sooner apt Medications Medication SIG (Take, Route, Frequency, Duration) Notes Start Date End Date Status Topiramate 50 MG TAKE 1 TABLET BY JYOTI TH TWICE DAILY 90 DAY SUPPLY Oral for 90 Days Active Ondansetron 4 MG Oral for 90 Days Active Topamax 50 MG 1 tablet Orally Once a day for 30 day(s) 08/13/2023 Active Escitalopram Oxalate 10 MG Oral for 90 Days Active SUMAtriptan 08/13/2023 Active Vitamin B 12 08/13/2023 Active Iron 08/13/2023 Active Stool Softener 08/13/2023 Acti ve Centrum Adult 08/13/2023 Activ e Baby Aspirin 08/13/2023 Active Potassium Chloride ER 8 MEQ TAKE 1 TABLE T BY MOUTH EVERY DAY WITH FOOD Oral for 90 Days Active Omeprazole 20 MG Oral for 90 Days Active Social History Tobacco Use: Social History Observation Description Date Details (start date - stop date) Never Smoker NA - NA Tobacco Use/Smoking Question Answer Notes Are you a: nonsmoker Additional Findings: Tobacco Non-User Current no n-smoker Alcohol Screen Question Answer Notes Did you have a drink containing alcohol in the p ast year? No Points 0 Interpretation Negative Tobacco use other than smoking: Question Answer Notes Are you an other tobacco user? No Vital Signs Height 6 ft 2 in in 09/25/2023 Weight 220 lbs 09/25/2023 BMI 28.24 kg/m2 09/25/2023 Encounters Encounter Location Date Provider Diagnosis [facility] [address] [place] [address] 09/25/2023 Anibal Christiansen Plan Of Treatment No Information Progress Notes * PRABHASteve VDOB:[birth year] (59 yo M)Acc No.[id number]:09/25/2023 Progress Notes Patient:?Steve CABRAL V Provider:?Anibal Christiansen DPM :1965???Age:58 Y???Sex:Male Fabian e:09/25/2023 Address:[address] [place], [place] [id number] Pcp:Luke Almonte MD Subjective: * Chief Complaints: * ???1. R/s for sooner apt. * ROS:?General/Constitutional:?Nausea?denies.?Vomiting?denies.?Hunger Thirst?denies.?Loss appetite?denies.?Chills?denies.?Fatigue?admits.?Fever?denies.?Night Sweats?denies.?Unexplained weight loss?denies.?Unexplained weight gain?denies.?HEENTM:?Dentures?denies.?Dizziness?denies.?Glasses/contacts?admits.?Retinopathy?de nies.?Blurred/double vision?denies.?TMJ?denies.?Discharge/drainage?denies.?Implants?denies.?Sore throat?denies.?Dental implants?denies.?Hard of hearing ?admits.?Difficulty chewing/swallowing/speaking?denies.?Nose bleeds?denies.?Sore mouth?denies.?Respiratory:?On Oxygen?denies.?Pneumonia/pleurisy?denies.?Bronchitis?denies.?Emphysema?denies.?C oughing?denies.?Cough blood?denies.?Shortness of breath?denies.?Wheezing?denies.?Cardiovascular:?Pacemaker?denies.?MVP?denies.?WPW?denies.?CHF?denies.?Heart attack?denies.?Septal defect?denies.?Rapid beat?denies.?Chest pain ?denies.?Atrial Fib.?denies.?Murmur/Palpitations?denies.?Gastrointestinal:?Hemorrhoids?denies.?Stomach/Abdominal pain?admits.?Dark blood stool?denies.?Irritable bowel ?denies.?Constipation?admits.?Diarrhea?denies.?Hematology:?Swelling?denies.?Clots?denies.?Varicose Veins?denies.?Bruising?denies.?Bleeding problem?denies.?Genitourinary:?Blood urine?denies.?Frequent/Painfu/urination/bladder control?denies.?Kidney stones?denies.?Infection (UTI)?denies.?Nephropathy?denies.?sex trans dis (STD)?denies.?Prostate?denies.?Musculoskeletal:?Hammertoes?denies.?Bunions?denies.?Back Pain?denies.?Muscle Cramps/ Resting?denies.?Muscle cramps / walking?denies.?Generalized aches and pains?admits.?Weakness?denies.?Integ.:?Nguyễn?denies.?Scars?admits.?Corns/calluses?denies.?Ingrown nails?denies.?Painful nails?denies.?Open Sores?denies.?Rashes?denies.?Neurologic:?Difficulty sleeping?denies.?Brain disorder?denies.?Numbness?denies.?Balance trouble?denies.?Confusion?admits.?Fainting/blackouts?denies.?Tingling?denies.?Tr emors?denies.? * Medical History:?Back,Hip,an d Knee pain, Broken bones, Cataracts, Covid-19, Diverticulosis, Gout, Migraines, High blood pressure, Reflux ( GERD), Joint implants/screws, Sleep apnea. * Surgical History:?Diverticul osis 04/23/2000, Bone Spurs 2014. * Family History:?Mother: dece ased.?Father: , cancer, heart attack, high blood pressure.?Paternal Grand Mother: arthritis, stroke.?Paternal Grand Father: arthritis, foot problems, poor circulation.?Maternal Grand Mother: arthritis.?Maternal Grand Father: arthritis.?Paternal aunt: cancer.?Maternal aunt: cancer, kidney/liver disease.?Maternal uncle: diabetes.? * Social History:?Tobacco Use:?Tobacco Use/Smoking?Are you a:?nonsmoker ?Additional Findings: Tobacco Non-User?Current non-smoker ?Tobacco use other than smoking?Are you an other tobacco user??No ???Drugs/Alcohol:?Drugs?Have you used drugs other than those for medical reasons in the past 12 months??No ?Alcohol Screen?Did you have a drink containing alcohol in the past year??No ?Points?0 ?Interpretation?Negative ???Miscellaneous:?Caffeine: yes, 1-2 cups per day. ?Exercise: yes, walking, bike riding. ?Marital status: . ?Occupation: [employer]. * Medications:?Taking Topirama te 50 MG Tablet TAKE 1 TABLET BY MOUTH TWICE DAILY 90 DAY SUPPLY Oral , Taking Escitalopram Oxalate 10 MG Tablet Oral , Taking Topamax 50 MG Tablet 1 tablet Orally Once a day , Taking Omeprazole 20 MG Capsule Delayed Release Oral , Taking Potassium Chloride ER 8 MEQ Tablet Extended Release TAKE 1 TABLET BY MOUTH EVERY DAY WITH FOOD Oral , Taking Iron , Taking Vitamin B 12 , Taking Centrum Adult , Taking Stool Softener , Taking Baby Aspirin , Taking SUMAtriptan , Taking Ondansetron 4 MG Tablet Disintegrating Oral * Allergies:?Adhesive: rash, S hrimp Flavor: rash,breathing difficulty, sea food: rash, breathing difficulties, Morphine: . Objective: * Vitals:?Ht: 6 ft 2 in, Wt:22 0, BMI:28.24, Shoe size: 12, Ht-cm: 187.96 cm, Wt- k.79 kg. Assessment: Plan: * Treatment: * Images: * The named appointment provid er may or may not be the originator of this progress note, and it is not deemed complete until electronically signed by the appointment provider. Sign off status: Pending * Provider:?Anibal Christiansen DPM Date:?2022 Generated for Kamilah solis/Bharati/Kristy on:?11/02/2024 03:07 PM EST
--- OUTSIDE RECORDS SUMMARY | 2024-11-02 15:08 | XMS_ITS ---
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 Name Role Phone Luke Almonte MD Primary Care Provider Anibal Dale Unavailable [phone] Allergies Allergen (clinical drug ingredient) Drug/Non Drug Allergy documented on EMR Reaction Allergy Type Onset Date Status sea food (uncoded) rash, breathing difficulties Allergy Active Shrimp Flavor rash,breathing difficulty Drug Allergy Active Adhesive rash Allergy Active morphine Morphine Drug Allergy Active REASON FOR VISIT Foot pain Medications Medication SIG (Take, Route, Frequency, Duration) Notes Start Date End Date Status Vitamin B 12 300 mg Active Eletriptan Hydrobromide 40 MG 1 tablet Orally Once a day Active Topamax 50 MG 1 tablet Orally Once a day 2x day Active Omeprazole 20 MG 1 capsule 30 minutes before morning meal Orally Once a day Active Potassium Active Verapamil HCl Active Centrum Adult Active Baby Aspirin Active SUMAtriptan Active Social History Tobacco Use: Social History [...] other tobacco user? No Vital Signs Height 6ft 2in in 09/04/2023 Weight 220 lbs 09/04/2023 BMI 28.24 kg/m2 09/04/2023 Encounters Encounter Location Date Provider Diagnosis [facility] [address] [place] [address] 09/04/2023 Anibalangelique BritoЕлена Pain in left foot M79.672 ; Pain in left ankle and joints of left foot M25.572 ; Bursitis of intermetatarsal bursa of left foot M77.52 and Metatarsalgia, left foot M77.42 Assessments Encounter Date Diagnosis (ICD Code) Assessment Notes Treatment Notes Treatment Clinical Notes Section Notes 09/04/2023 Pain in left foot (ICD-10 - M79.672) 09/04/2023 Pain in left ankle and joints of left foot (ICD-10 - M25.572) 09/04/2023 Bursitis of intermetatarsal bursa of left foot (ICD-10 - M77.52) 09/04/2023 Metatarsalgia, left foot (ICD-10 - M77.42) Plan Of Treatment Pending Test Test Name Order Date X ray : Foot, left 3V 09/04/2023 Next Appt Details Follow Up: prn, Reason: Progress Notes * Steve CABRAL VDOB:[birth year] (58 yo M)Acc No.[id number]:09/04/2023 Progress Notes Patient:?Steve Cabral V Provider:?Anibal Christiansen DPM :1965???Age:58 Y???Sex:Male Fabian e:09/04/2023 Address:[address] [place], [place] [id number] Pcp:Luke Almonte MD Subjective: * Chief Complaints: * ???Foot pain * HPI: ???Foot Pain:?Location:?Bottom, Outside, Midfoot, LEFT.?Duration:?several months.?Course:?worse.?Treatments:?rest.? * ROS:?General/Constitutional:?Nausea?denies.?Vomiting?denies.?Hunger Thirst?denies.?Loss appetite?denies.?Chills?denies.?Fatigue?admits.?Fever?denies.?Night Sweats?denies.?Unexplained weight loss?denies.?Unexplained weight gain?denies.?HEENTM:?Dentures?denies.?Dizziness?denies.?Glasses/contacts?admits.?Retinopathy?de nies.?Blurred/double vision?denies.?TMJ?denies.?Discharge/drainage?denies.?Implants?denies.?Sore throat?denies.?Dental implants?denies.?Hard of hearing ?admits.?Difficulty chewing/swallowing/speaking?denies.?Nose bleeds?denies.?Sore mouth?denies.?Respiratory:?On Oxygen?denies.?Pneumonia/pleurisy?denies.?Bronchitis?denies.?Emphysema?denies.?C oughing?denies.?Cough blood?denies.?Shortness of breath?denies.?Wheezing?denies.?Cardiovascular:?Pacemaker?denies.?MVP?denies.?WPW?denies.?CHF?denies.?Heart attack?denies.?Septal defect?denies.?Rapid beat?denies.?Chest pain ?denies.?Atrial Fib.?denies.?Murmur/Palpitations?denies.?Gastrointestinal:?Hemorrhoids?denies.?Stomach/Abdominal pain?admits.?Dark blood stool?denies.?Irritable bowel ?denies.?Constipation?admits.?Diarrhea?denies.?Hematology:?Swelling?denies.?Clots?denies.?Varicose Veins?denies.?Bruising?denies.?Bleeding problem?denies.?Genitourinary:?Blood urine?denies.?Frequent/Painfu/urination/bladder control?denies.?Kidney stones?denies.?Infection (UTI)?denies.?Nephropathy?denies.?sex trans dis (STD)?denies.?Prostate?denies.?Musculoskeletal:?Hammertoes?denies.?Bunions?denies.?Back Pain?denies.?Muscle Cramps/ Resting?denies.?Muscle cramps / walking?denies.?Generalized aches and pains?admits.?Weakness?denies.?Integ.:?Nguyễn?denies.?Scars?admits.?Corns/calluses?denies.?Ingrown nails?denies.?Painful nails?denies.?Open Sores?denies.?Rashes?denies.?Neurologic:?Difficulty sleeping?denies.?Brain disorder?denies.?Numbness?denies.?Balance trouble?denies.?Confusion?admits.?Fainting/blackouts?denies.?Tingling?denies.?Tr emors?denies.? * Medical History:? * Surgical History:?Diverticul osis 04/23/2000Bone Spurs 2014 * Hospitalization/Major Diagno stic Procedure:?[facility] [place] - due to allergy to Morphine 04/23-05/30/2000 * Family History:?Mother: dece ased.?Father: , cancer, heart attack, high blood pressure.?Paternal Grand Mother: arthritis, stroke, diagnosed with Unspecified heart disease.?Paternal Grand Father: arthritis, foot problems, poor circulation.?Maternal Grand Mother: arthritis.?Maternal Grand Father: arthritis.?Paternal aunt: cancer.?Maternal aunt: cancer, kidney/liver disease.?Maternal uncle: diabetes, diagnosed with Diabetic - NIDDM.? * Social History:?Tobacco Use:?Tobacco Use/Smoking?Are you a:?nonsmoker ?Additional Findings: Tobacco Non-User?Current non-smoker ?Tobacco use other than smoking?Are you an other tobacco user??No ???Drugs/Alcohol:?Drugs?Have you used drugs other than those for medical reasons in the past 12 months??No ?Alcohol Screen?Did you have a drink containing alcohol in the past year??No ?Points?0 ?Interpretation?Negative ???Miscellaneous:?Caffeine: yes, frequency: , 1-2 cups per day. ?Exercise: yes, walking, hiking, bike riding. ?Marital status: . ?Occupation: weeks/months/years, employed. * Medications:?TakingSUMAtript an Baby Aspirin Centrum Adult Verapamil HCl Eletriptan Hydrobromide 40 MG Tablet 1 tablet Orally Once a dayVitamin B 12 , Notes: 300 mgPotassium Omeprazole 20 MG Capsule Delayed Release 1 capsule 30 minutes before morning meal Orally Once a dayTopamax 50 MG Tablet 1 tablet Orally Once a day, Notes: 2x dayMedication List reviewed and reconciled with the patientTaking SUMAtriptan Taking Baby Aspirin Taking Centrum Adult Taking Verapamil HCl Taking Eletriptan Hydrobromide 40 MG Tablet 1 tablet Orally Once a dayTaking Vitamin B 12 , Notes: 300 mgTaking Potassium Taking Omeprazole 20 MG Capsule Delayed Release 1 capsule 30 minutes before morning meal Orally Once a dayTaking Topamax 50 MG Tablet 1 tablet Orally Once a day, Notes: 2x dayMedication List reviewed and reconciled with the patient * Allergies:?Adhesive: rashShr imp Flavor: rash,breathing difficultysea food: rash, breathing difficultiesMorphine: deathyes[Allergies Verified] Objective: * Vitals:?Ht: 6ft 2in, Wt:220, BMI:28.24, Shoe size: 12, Ht-cm: 187.96 cm, Wt-k.79 kg. * Examination: ???Orthopedic: ?MUSCLE STRENGTH:?5/5 all groups in a symmetrical fashion , B/L.?GAIT ABNORMALITY:?antalgic.?TAILOR'S BUNION:?Enlarged, painful, prominent, inflamed 5th Metatarsal Base , LEFT.?X-Rays - IMAGING REPORT: ?Clinical Indication(s):? Evaluate for Fracture.?Views:? 3 views of Foot, AP, LAT, LO, LEFT.?Findings:?normal bone and soft tissue density consistent for patients age and sex, hypertrophy of 5th MT Base/Styloid process.?Fracture:?Negative fractures identified.?Neurological: ?SENSORY:?Neurological exam reveals intact sensorium, pain sensation normal, vibration sensation intact, pinprick sensation is normal in the lower extremities, Pt denies, anesthesia, burning, paresthesia, tingling, B/L.?TINEL'S COMPRESSION:? Negative tarsal tunnel, mary pedis, and medial calcaneal nerves, Left.?DEEP TENDON REFLEXES:?Achilles, 2/4, B/L.?Neuroma Pain: ?PALPATION:?No interspace pain noted on palpation, LEFT.?General Examination: ?GENERAL APPEARANCE:?Reveals a pleasant, alert, well-nourished, well- developed, well hydrated individual, who demonstrates proper attention to hygiene/body habitus, and is in no acute distress, Pt serves as own?historian for office visit today.?ORIENTED:?person, place, and time.?Vascular: ?DP PULSES:?3/4, B/L.?PT PULSES:?3/4, B/L.?CAPILLARY FILL TIME:?immediate, all digits, B/L.?SKIN TEMPERTURE GRADIENT OF THE LOWER EXTERMITIES:?warm to cool, proximal to distal, B/L.?HAIR GROWTH/TEXTURE/ELASTICITY/TURGOR:?normal, B/L.?PIGMENTATION:?normal, B/L.?EDEMA:?absent, B/L.?Dermatologic: ?SKIN FINDINGS:?Skin exam reveals normal texture, elasticity, and turgor. There are no masses. The interspaces are clear.? Assessment: * Assessment: 1.?Pain in left ankle and simeon ints of left foot - M25.572?2.?Pain in left foot - M79.672 (Primary)?3.?Bursitis of intermetatarsal bursa of left foot - M77.52?4.?Metatarsalgia, left foot - M77.42, Acute problem, Complicated w/ Multiple Tx Options(4),Dx New problem, Prognosis Uncertain (4)? Plan: * Treatment: * Procedure Codes:?48116 X-RAY EXAM OF LEFT FOOT 3V, Modifiers: 26 , LT * Preventive Medicine:? ??Counseling:?Discussion:?-04: Office or other outpatient visit for the evaluation and management of a new patient, which required a medically appropriate history and/or examination and MODERATE level of DECISION MAKING for: 1 OR MORE CHRONIC PROBLEM(S) THATS WORSENING, 2 STABLE CHRONIC PROBLEMS, A NEWLY DIAGNOSED PROBLEM WITH UNCERTAIN PROGNOSIS, AN ACUTE COMPLICATED INJURY WITH MULTIPLE TREATMENT OPTIONS, OR AN ACUTE PROBLEM WITH ACCOMPANYING SYSTEMIC SYMPTOMS, THAT POSE(S) A MODERATE RISK OF MORBIDITY. THIS CONDITION MAY ALSO INCLUDE RX DRUG MANAGEMENT, OR A DECISON FOR MINOR SURGERY. The visit on the day of the encounter encompassed interpreting the data and educating the patient as to the nature of their condition, treatment options available according to their individual PMH, meds, allergies, and overall health/living conditions, as well as any potential risks or complications that may occur from a failure to adhere to, and participate in, the recommended course of therapy. The discussion included a complete verbal, and/or written explanation of the examination results, any x-rays taken, the proposed diagnosis, and outline of the treatment plan. A schedule for future care needs was also explained. The patient verbalized an understanding of the instructions at this time and agreed to be an active participant in their treatment. If the patient should think of any questions or concerns after the visit, I have encouraged the patient to call the office.?Metatarsalgea:?I explained to the patient the possible etiologies of their Metatarsalgea Foot pain, including foot type/shoegear/activity level/exercise routine and the risks/benefits of all the different treatment options for pain including: No treatment at all, Rest, Ice, NSAIDs(only if well tolerated after meals), New/supportive Shoegear, Strappings and Tapings, Foot/Ankle AFO Bracing, Stretching exercises, Deep Tissue Massage, Arch support/shoe inserts, Custom orthoses, Topical analgesics including Aspercream/Voltaren gel, Physical Therapy, Cortisone injection therapy, EPAT/ESWT. Advantages and disadvantages of each option were discussed and the patients questions re: shoegear, custom vs prefabricated inserts, activity level, PO vs Topical medications (and their respective potential complications/drug interactions/side effects), and consistency in home treatment regimens for optimal success were answered to their verbally confirmed satisfaction.?Orthotics:?I explained to the patient the benefits of OT use. I explained that orthoses are medically necessary to decrease the foot pain through proper mechanical control, support of their foot, decrease pain under the painful metatarsal by supplementing the soft tissue, cushion the forefoot by supplementing the soft tissue.?P.R.I.C.E.:?The patient was counseled on the use of P.R.I.C.E. and NSAIDS (if well tolerated) to aid in the recovery from their painful condition.?Podiatric Surgery Counseling:?Surgical procedures to treat the patients foot problem were discussed. We reviewed the risks of the procedure (described below) vs not having the procedure (persistent pain, deformity, risk for skin ulceration/infection, loss of toe). We discussed the potential procedure complications including, but not limited to: pain, swelling, bleeding, scarring, numbness, infection, delayed/non healing, floppy/unstable/shorthened toe, recurrence, failure of the procedure, overcorrection leading to plantarflexed/downward positioned toe, recurrence, need for further surgery, as well as the possibility for loss of the toe itself. We discussed the use of IV/Local anesthesia, and the usual post-op course for healing. No guarentees were given. The patient verbally indicated a full understanding of the above conversation, and any other of their questions were answered to their satisfaction.?Shoe Gear Counseling:?The patient and I reviewed the types of shoes they should be wearing. My recommendation included obtaining a well-fitted shoe with a good supportive, non-foldable nor twistable sole, plenty of toe/room for the forefoot, and proper arch support. Based on todays examination, I recommended the patient look for new shoes, by having their feet professionally measured. We discussed that generally the best time of the day for a shoe fitting is the afternoon. Different shoes types and brands to best match the patients occupation and vocation were discussed. Specific brand selection will be up to the patient, their individual foot condition/deformities, and fit. The patient and I reviewed the standard new shoe break in period by wearing them for a few hours a day while checking for redness or sores as wear time is increased. The patient verbally confirmed to understanding the information discussed.? * Follow Up:?prn * Images: * Sign off status: Completed true * Provider:?Anibal Christiansen DPM Date:?2022 Generated for Kamilah solis/Bharati/Kristy on:?11/02/2024 03:07 PM EST History and Physical Notes * HPI (History of Present Illness) Category Sub-Category Detail Notes Category Not es Foot Pain Location: Bottom, Outside, Midfoot, LE FT Duration: several months Course: worse Treatments: rest Examination Category Sub-Category Detail Notes Category Not es Neuroma Pain PALPATION: No interspace pain noted on palpation, LEFT Neurological SENSORY: Neurological exa m reveals intact sensorium, pain sensation normal, vibration sensation intact, pinprick sensation is normal in the lower extremities, Pt denies, anesthesia, burning, paresthesia, tingling, B/L TINEL'S COMPRESSION: Negative tarsal natalia samira, mary pedis, and medial calcaneal nerves, Left DEEP TENDON REFLEXES: Achilles, 2/4, B/L Dermatologic SKIN FINDINGS: Skin exam reveal s normal texture, elasticity, and turgor. There are no masses. The interspaces are clear Orthopedic GAIT ABNORMALITY: antalgic TAILOR'S BUNION: Enlarged, painful, p rominent, inflamed 5th Metatarsal Base , LEFT MUSCLE STRENGTH: 5/5 all groups in a symmetrical fashion , B/L General Examination GENERAL APPEARANCE: Reveals a pleasant, alert, well- nourished, well-developed, well hydrated individual, who demonstrates proper attention to hygiene/body habitus, and is in no acute distress, Pt serves as own historian for office visit today ORIENTED: person, place, and t dudley Vascular DP PULSES(B): 3/4, B/L PT PULSES(B): 3/4, B/L CAPILLARY FILL TIME: immediate, all digi ts, B/L TEMPERTURE GRADIENT(C): warm to cool, pr oximal to distal, B/L TROPHIC CONDITION-TEXTURE/ELASTICITY/TURGOR/HAIR GROWTH(B): normal, B/L EDEMA(C): absent, B/L PIGMENTATION: normal, B/L X-Rays - IMAGING REPORT Findings: normal b one and soft tissue density consistent for patients age and sex, hypertrophy of 5th MT Base/Styloid process Fracture: Negative fractures i dentified Views: 3 views of Foot, AP, LAT, LO, LEFT Clinical Indication(s): Evaluate for Fra cture
--- OUTSIDE RECORDS SUMMARY | 2024-11-02 15:08 | XMS_ITS | Patient Health Record ---
Author Organization [facility] Address [address] [place] [address] Care Team Providers Care Boring Machine Operator Helper Name Role Phone Luke Almonte MD Primary Care Provider Anibal Dale Unavailable [phone] Allergies Allergen (clinical drug ingredient) Drug/Non Drug Allergy documented on EMR Reaction Allergy Type Onset Date Status sea food (uncoded) rash, breathing difficulties Allergy Active Shrimp Flavor rash,breathing difficulty Drug Allergy Active Adhesive rash Allergy Active morphine Morphine Drug Allergy Active Reason For Referral No Information Medications Medication SIG (Take, Route, Frequency, Duration) Notes Start Date End Date Status Vitamin B 12 300 mg Active Topiramate 50 MG TAKE 1 TABLET BY JYOTI TH TWICE DAILY 90 DAY SUPPLY Oral for 90 Days Active Eletriptan Hydrobromide 40 MG 1 tablet Orally Once a day Active Verapamil HCl Active Centrum Adult Active Baby Aspirin Active SUMAtriptan Active Ondansetron 4 MG Oral for 90 Days Active Topamax 50 MG 1 tablet Orally Once a day for 30 day(s) 08/13/2023 Active Escitalopram Oxalate 10 MG Oral for 90 Days Active Potassium Chloride ER 8 MEQ TAKE 1 TABLE T BY MOUTH EVERY DAY WITH FOOD Oral for 90 Days Active Omeprazole 20 MG Oral for 90 Days Active Vitamin B 12 08/13/2023 Active Iron 08/13/2023 Active Stool Softener 08/13/2023 Acti ve Centrum Adult 08/13/2023 Activ e Topamax 50 MG 1 tablet Orally Once a day 2x day Active SUMAtriptan 08/13/2023 Active Omeprazole 20 MG 1 capsule 30 minutes before morning meal Orally Once a day Active Baby Aspirin 08/13/2023 Active Potassium Active Social History Tobacco Use: Social History [...] Are you an other tobacco user? No Plan Of Treatment Pending Test Test Name Order Date X ray : Foot, left 3V 09/04/2023 Insurance Providers Payer Name Payer Address Payer Phone Subscriber Number Group Number Insured Name Patient Relationship to Insured Coverage Start Date Coverage End Date A[employer] [address] [place] [address] [id number] Steve Cabral Self - patient is the insured [facility] [address] [place] [address] [id number] Honey Grimes Spouse - patient is the spouse of the insured Medical (General) History Medical History History ICD Code Back,Hip,and Knee pain Broken bones Cataracts covid-19 Diverticulosis Gout Migraines High blood pressure Reflux ( GERD) Joint implants/screws Sleep apnea Surgical History Surgery Date(Month/Year) Diverticulosis 04/23/2000 Bone Spurs 2015 Hospitalization History Reason Date(Month/Year) [facility] [place] Morphine 0 04/23-05/30/2000
--- OUTSIDE RECORDS SUMMARY | 2024-11-02 15:08 | XMS_ITS ---
Author Organization [facility] Address [address] [place] [address] Care Team Providers Care Marble Polisher Hand Name Role Phone Luke Almonte MD Primary Care Provider Anibal Dale [phone] REASON FOR VISIT buy 10pks Met Pads U Shape Encounters Encounter Location Date Provider Diagnosis [facility] [address] [place] [address] 09/04/2023 Anibal Christiansen Plan Of Treatment No Information Progress Notes * Steve CABRAL VDOB:[birth year] (58 yo M)Acc No.[id number]:09/04/2023 Patient:?Steve Cabral V :1965???Age:58 Y???Sex:Male Address:[address] [place] [address] * true * Date:? Generated for Printi ng/Fasammig/eTransmitting on:?11/02/2024 03:07 PM EST
--- OUTSIDE RECORDS SUMMARY | 2024-11-02 15:08 | XMS_ITS | Patient Health Record ---
Author Organization [facility] Address [address] [place] [address] Care Team Providers Care Water Resources Program Director Name Role Phone Luke Almonte MD Primary Care Provider Lucas Monaco Jr Unavailable ALLERGIES Allergen (clinical drug ingredient) Drug/Non Drug Allergy documented on EMR Reaction Allergy Type Onset Date Status morphine Morphine Unknown Drug Allergy Active Seafood seafood (uncoded) Unknown Allergy Ac tive REASON FOR REFERRAL No Information MEDICATIONS Medication SIG (Take, Route, Frequency, Duration) Notes Start Date End Date Status Omeprazole 40 MG 1 capsule 30 minutes before morning meal Orally Once a day for 30 day(s) Active Topamax 100 MG 1 tablet Orally Once a day for 30 day(s) Active Verapamil HCl ER 240 MG 1 tablet Orally Once a day for 30 day(s) Active MiraLax (colon prep) 17 GM/SCOOP mixed with Gatorade or Crystal Light Orally begin at 5:00 p.m. the day before the procedure for 1 day 10/16/2021 Active Vitamin D 50 MCG (1999 UT) 1 tablet Oral ly Once a day for 30 day(s) Active potassium 1 tab Oral for 14 days Active B12 Fast Dissolve 5000 MCG as directed Orally Active Vitamin B + C Complex - as directed Orally Active IMMUNIZATIONS Vaccine Route Administration Date Status Comme nts Influenza Unknown 10/04/2021 Administered SOCIAL HISTORY Tobacco Use: Social History Observation Description Date Details (start date - stop date) Never Smoker NA - NA Sex Assigned At : Social History Observation Description Sex Assigned At Unknown Tobacco Use/Smoking Question Answer Notes Patient is a nonsmoker Alcohol Screen Question Answer Notes Did you have a drink containing alcohol in the p ast year? No Points 0 Interpretation Negative PROBLEMS Problem Type ICD Code Onset Dates Problem Status W/U Status Risk SNOMED Code Notes Problem Gastroesophageal reflux disease, unspecified whether esophagitis present (K21.9) Active confirmed 861164065 Problem Anemia, unspecified type (D64.9) Active confirmed 783438546 Problem Change in bowel function (R19.8) Active confirmed 56657211 Problem Gastroesophageal reflux disease (K21.9) Active confirmed Gastroesophagea l reflux disease (009775786) PLAN OF TREATMENT Future Test Test Name Order Date UPPER GI ENDOSCOPY 10/16/2021 COLONOSCOPY 10/16/2021 Insurance Providers Payer Name Payer Address Payer Phone Subscriber Number Group Number Insured Name Patient Relationship to Insured Coverage Start Date Coverage End Date [facility] [address] [place], [place] [id number] DEEPTI ARMANDO Self - patient is the insured MEDICAL (GENERAL) HISTORY Medical History History ICD Code Hypertension Migraine headaches Gastroesophageal reflux disease Temporal arteritis Fatty liver Obstructive sleep apnea Colonoscopy 2016, ten-year followup ivan mmblack, Dr. Phillips Diverticular disease Surgical History Surgery Date(Month/Year) Sigmoid resection 04/2001 Temporal artery biopsy 08/2020
== END 2024-10-31 11:14 | disposition home or self-care (01) ==
LOC: HO.LNP 11:13
PROVIDERS: Visit Provider Internal Medicine
DX: R97.20 Elevated prostate specific antigen [PSA] (principal); Z12.5 Encounter for screening for malignant neoplasm of prostate
CPT/HCPCS: 84153

== ENCOUNTER 2025-04-24 10:24 | Outpatient (REF) | payer OTHER, SELFPAY ==
[2025-04-24 10:26] LABS: MANUAL DIFF FLAG NO
[2025-04-24 10:40] LABS: Appearance Urine Clear; Basophils Percent Auto 0.7 % (0-2); Color Urine Dark Yellow; Eosinophils Absolute Auto 0.2 X10*3/uL (0.0-0.4); Eosinophils Percent Auto 3.5 % (0-4); Glucose Urine UA Negative (Negative); Hematocrit 41.7 % (42.0-52.0); Hemoglobin 14.7 g/dl (14.0-18.0); Imm Gran Abs Auto 0.03 X10*3/uL (0.00-0.03); Imm Gran Pct Auto 0.5 % (0.0-0.4); Leukocyte Esterase Urine Trace (Negative); Lymphocytes Absolute Auto 1.9 X10*3/uL (1.2-4.9); Lymphocytes Percent Auto 34.4 % (20-40); Mean Corpuscular HGB Conc 35.3 g/dl (31.0-36.0); Mean Corpuscular Hemoglobin 31.8 pg (27.0-33.0); Mean Corpuscular Volume 90.3 fL (80.0-98.0); Mean Platelet Volume 9.1 fL (9.4-12.4); Monocytes Absolute Auto 0.5 X10*3/uL (0.1-1.2); Monocytes Percent Auto 8.2 % (2-11); Neutrophils Absolute Auto 2.9 x10*3/uL (2.0-8.3); Neutrophils Percent Auto 52.7 % (45-73); Nitrite Urine Negative (Negative); PH 6.5 (5.0-9.0); Platelet Count 209 X10*3/uL (160-400); Red Blood Count 4.62 X10*6/uL (4.60-5.80); Specific Gravity - Urine 1.025 (1.005-1.025); UMIC TRIGGER UACC YES; Urine Blood Negative (Negative); Urine Ketones Trace mg/dL (Negative); Urine Protein Negative (Neg-Trace); White Blood Count 5.5 X10*3/uL (4.8-10.8)
[2025-04-24 10:43] LABS: Bacteria Urine None Seen (None Seen); Hyaline Casts Urine 0-2 /LPF (0-2); RBC Urine 0-2 /HPF (0-2); Squamous Epithelial Cell Urine 0-2 /HPF (0-2); WBC Urine 0-5 /HPF (0-5)
[2025-04-24 10:55] LABS: Estimated Average Glucose 103 mg/dL; Hemoglobin A1c % 5.2 % (<6.0); Total Hemoglobin (HGBA1C) 3778.6816 umol/L
[2025-04-24 11:11] LABS: Alanine Aminotransferase 53 U/L (0-40); Albumin Level 4.5 g/dL (3.5-5.0); Alkaline Phosphatase 69 U/L (39-117); Aspartate Amino Transferase 40 U/L (5-37); Bilirubin Direct 0.2 mg/dL (0.0-0.5); Bilirubin Total 0.5 mg/dL (0.0-1.0); Cholesterol 115 mg/dL (<200); HDL Cholesterol 30 mg/dL (>40); LDL Cholesterol Calculated 64 mg/dL (<100); Triglycerides 106 mg/dL (<150)
[2025-04-24 11:13] LABS: PSA,Total (Free>4and<10) 0.75 ng/mL (0.00-4.00)
--- OUTSIDE RECORDS SUMMARY | 2025-04-24 11:25 | XMS_ITS | Patient Health Record ---
Author Organization [facility] Address [address] [place] [address] Care Team Providers Care Machine Wedger Name Role Phone Luke Almonte MD Primary Care Provider Anibal Dale Unavailable [phone] Allergies Allergen (clinical drug ingredient) Drug/Non Drug [...] Date Coverage End Date [employer] [address] [place] [address] [id number] Steve Cabral Self - patient is the insured [facility] [address] [place] [id number] Honey Grimes Spouse - patient is the spouse of the insured Medical (General) History Medical History History ICD Code Back,Hip,and Knee pain Broken bones Cataracts covid-19 Diverticulosis Gout Migraines High blood pressure Reflux ( GERD) Joint implants/screws Sleep apnea Surgical History Surgery Date(Month/Year) Diverticulosis 04/23/2000 Bone Spurs 2015 [place]ization History Reason Date(Month/Year[place] [facility] [place] to [place] 0 [place]/23-05/30/2000
[2025-04-24 12:01] LABS: Creatinine Urine 258.98 mg/dL; Microalbum/Creatinine Ratio Ur 4.6 ug/mg cr (<30)
== END 2025-04-24 10:25 | disposition home or self-care (01) ==
LOC: HO.LNP 10:24
PROVIDERS: Visit Provider Internal Medicine
DX: Z00.00 Encounter for general adult medical examination without abnormal findings (principal); R73.09 Other abnormal glucose; K75.81 Nonalcoholic steatohepatitis (NASH); D63.8 Anemia in other chronic diseases classified elsewhere; Z12.5 Encounter for screening for malignant neoplasm of prostate
CPT/HCPCS: 80061; 80076; 81001; 82043; 82570; 83036; 84153; 85025

== ENCOUNTER 2025-07-03 07:15 | Outpatient (REF) | payer OTHER, SELFPAY ==
--- OUTSIDE RECORDS SUMMARY | 2025-07-03 03:30 | XMS_ITS ---
Author Organization Luke Almonte MD Address [address] [place] [phone] Care Team Providers Care Paraffin Plant Sweater Operator Name Role Phone Luke Almonte Primary Care Provider Results Component Value Reference Range Notes Comprehensive [place]. Panel Fa st (Not yet reviewed by provider) Interpretation: Performing Lab:[facility], [address] [place] [address] Notes/Report: Sodium 142 135-145 mmol/L Potassium 4.0 [...] Date Provider Diagnosis Luke Almonte MD [address] [place] [address] [place] [phone] 07/03/2025 Luke Almonte Elevated LFTs R79.89 Assessments Encounter Date Diagnosis (ICD Code) Assessment Notes Treatment Notes Treatment Clinical Notes Section Notes 07/03/2025 Elevated LFTs (ICD-10 - R79.89) Plan Of Treatment Pending Test Test Name Order Date Comprehensive [place]. Panel Fast Next Appt Details Provider Name:Luke schulte, 10/30/2025 01:45:00 PM, [address] [place] [address], [address], [phone], Provider Name:Luke schulte, 04/30/2026 07:15:00 AM, [address] [place] [address], [address], [phone], Provider Name:Luke schulte, 05/07/2026 01:00:00 PM, [address] [place] [address], [address], [phone], Progress Notes * Steve CABRAL VDOB:[birth year] (59 yo M)Acc No.[id number]:07/03/2025 Progress Note Patient: Steve LIZAMA V Provider: Joel Almonte MD :1965 A ge:59 Y S ex:Male Date:07/03/2025 Address:[address] [place] [address], [facility] Subjective: * Chief Complaints: * 1 . Comp met panel. * Medical History: Objective: * Vitals: Assessment: * Assessment: 1. E levated LFTs - R79.89 Plan: * Treatment: * * The named appointment provid er may or may not be the originator of this progress note, and it is not deemed complete until electronically signed by the appointment provider. Sign off status: Pending * Provider: Joel Almonte MD Date: 07/03/2025 Generated for Kamilah solis/Bharati/Krystinaitting on: 07/03/2025 10:54 AM EDT
[2025-07-03 10:42] LABS: Alanine Aminotransferase 41 U/L (0-40); Albumin Level 4.6 g/dL (3.5-5.0); Alkaline Phosphatase 75 U/L (39-117); Anion Gap 11 (12-20); Aspartate Amino Transferase 38 U/L (5-37); Blood Urea Nitrogen 18 mg/dL (9-16); Calcium 9.1 mg/dL (8.4-10.2); Carbon Dioxide 27 mmol/L (22-29); Chloride 108 mmol/L (96-108); Estimated Glomerular Filt Rate > 60; Potassium 4.0 mmol/L (3.3-5.1); Sodium 142 mmol/L (135-145); Total Protein 7.3 g/dL (6.5-8.0)
--- OUTSIDE RECORDS SUMMARY | 2025-07-03 10:55 | XMS_ITS | Patient Health Record ---
Author Organization [facility] Address [address] [place] [address] Care Team Providers Care Slope Tender Name Role Phone Luke Almonte MD Primary Care Provider Lucas Monaco Jr Allergies Allergen (clinical drug ingredient) Drug/Non Drug Allergy documented on EMR Reaction Allergy Type Onset Date Status morphine Morphine Unknown Drug Allergy Active Seafood seafood (uncoded) Unknown Allergy Ac tive Reason For Referral No Information Medications Medication [...] day 10/16/2021 Active Vitamin D 50 MCG (1999) 1 tablet Oral ly Once a day for 30 day(s) Active potassium 1 tab Oral for 14 days Active B12 Fast Dissolve 5000 MCG as directed Orally Active Vitamin B + C Complex - as directed Orally Active Immunizations Vaccine Route Administration Date Status Comme nts Influenza Unknown 10/04/2021 Administered Social History Tobacco Use: Social History Observation Description Date Details (start date - stop date) Never Smoker NA - NA Tobacco Use/Smoking Question Answer Notes Patient is a nonsmoker Alcohol Screen Question Answer Notes Did you have a drink containing alcohol in the p ast year? No Points 0 Interpretation Negative Problems Problem Type SNOMED Code ICD Code Onset Dates Problem Status W/U Status Risk Notes Problem Gastroesophageal reflux disease (K21.9) Active confirmed Problem 056605516 Anemia, unspecif ied type (D64.9) Active confirmed Problem 57905316 Change in bowel function (R19.8) Active confirmed Problem 687151001 Gastroesophageal reflux disease, unspecified whether esophagitis present (K21.9) Active confirmed Plan Of Treatment Future Test Test Name Order Date UPPER GI ENDOSCOPY 10/16/2021 COLONOSCOPY 10/16/2021 Insurance Providers Payer Name Payer Address Payer Phone Subscriber Number Group Number Insured Name Patient Relationship to Insured Coverage Start Date Coverage End Date [facility] [address] [place], [place] [id number] DEEPTI ARMANDO Self - patient is the insured Medical (General) History Medical History History ICD Code Hypertension Migraine headaches Gastroesophageal reflux disease Temporal arteritis Fatty liver Obstructive sleep apnea Colonoscopy 2016, ten-year followup ivan mmended, Dr. Phillips Diverticular disease Surgical History Surgery Date(Month/Year) Sigmoid resection 04/2001 Temporal artery biopsy 08/2020
--- OUTSIDE RECORDS SUMMARY | 2025-07-03 10:55 | XMS_ITS | Clinical Summary ---
Author Organization [facility] Address [address] [facility] [address] [place] [phone] Phone Care Team Providers Care Gas Distribution Plant Operator Name Role Phone Luke Almnote MD Primary Care Provider Allergies Active Allergy Reactions Criticality Noted Date Comments Morphine 08/14/2020 Fish Derived 08/14/2020 Medications topiramate (TOPAMAX) 50 MG tablet Take 50 mg by mouth 2 (two) times a day. Active verapamiL (CALAN-SR) 180 MG CR tablet Take 240 mg by mouth nightly at bedtime. Active omeprazole (PRILOSEC) 20 mg TbEC Take 20 mg by mouth daily before breakfast. Active escitalopram oxalate (LEXAPRO) 10 MG tablet Take 15 mg by mouth daily. Active eletriptan (RELPAX) 40 MG tablet Take 40 mg by mouth as needed. may repeat in 2 hours if necessary Active thiamine (VITAMIN B-1) 100 MG tablet Take 100 mg by mouth 2 (two) times a day. Active riboflavin, vitamin B2, (,VITAMIN B-2,) 100 mg Tab Take 100 mg by mouth daily. Active calcium carbonate-vitamin D3 1,250 mg (500 mg elemental)-400 units per tablet Take 1 tablet by mouth daily. Active potassium chloride (KLOR-CON) 8 MEQ ER tablet Take 8 mEq by mouth daily. Active ondansetron (ZOFRAN-ODT) 4 MG disintegrating tablet Take 4 mg by mouth every 8 (eight) hours as needed for nausea. Active CYANOCOBALAMIN, VITAMIN B-12, INJ Inject as directed. Active albuterol 90 mcg/actuation inhalerIndications :Acute upper respiratory infection,Acute cough Inhale 2 puffs into the lungs every 4 (four) hours as needed for wheezing or shortness of breath/dyspne a. 8 g Active Active Problems No known active problems Family History Medical History Relation Comments Rheumatoid arthritis Paternal Grandmother Relation Status Comments Paternal Grandmother Social History Tobacco Use Types Packs/Day Years Used Date Smoking Tobacco: Never Smokeless Tobacco: Never Education Answer Date Recorded Are you interested in more education? Not on pennie e 03/20/2023 Are you concerned about learning? Not on file 03/20/2023 No 03/20/2023 No 03/20/2023 Digital Access Answer Date Recorded No 04/21/2023 No 04/21/2023 Reliable internet access at home? Not on file 04/21/2023 Device with a working camera? Not on file Intimate Partner Violence Answer Date R ecorded Are you denied basic needs s uch as food, clothing, or medical care? No 02/24/2023 In the past 12 months have y ou been in a relationship with a person who hurts, threatens, or tries to control you? No 02/24/2023 Are you denied basic needs s uch as food, clothing, or medical care? No 02/24/2023 In the past 12 months have y ou been in a relationship with a person who hurts, threatens, or tries to control you? No 02/24/2023 Sex and Gender Information Value Date Recorded Sex Assigned at Male 02/24/2023 1:58 PM EDT Legal Sex Male 9:16 AM EDT Gender Identity Male 02/24/2023 1:58 PM EDT Sexual Orientation Straight 02/24/2023 1: 58 PM EDT Last Filed Vital Signs Vital Sign Reading Time Taken Comments Blood Pressure 114/72 01/27/2025 10:41 AM EST Pulse 85 01/27/2025 10:41 AM EST Temperature 36.6 C (97.9 F) 01/27/2025 10:41 AM EST Respiratory Rate 16 01/27/2025 10:41 AM EST Oxygen Saturation 96% 01/27/2025 10:41 AM EST Inhaled Oxygen Concentration - - Weight 104.8 kg (231 lb) 02/24/2023 2:00 PM EDT Height 188 cm (6' 2 ) 02/24/2023 2:00 PM EDT Body Mass Index 29.66 02/24/2023 2:00 PM EDT Plan of Treatment Health Maintenance Due Date Last Done Comments LIPID PANEL 1965 DEPRESSION SCREENING 1975 HEPATITIS C SCREENING 1981 HIV ONE-TIME SCREENING (18-65 YEARS) 1981 COLOGUARD 2008 COLONOSCOPY 2008 COLORECTAL CANCER SCREENING 2008 FIT TEST 2008 FOBT 2008 SIGMOIDOSCOPY 2008 VIRTUAL COLONOSCOPY 2008 POTASSIUM LEVEL 02/25/2024 02/24/2023, 1103/2021, 04/12/2021, Additional history exists PNEUMOCOCCAL VACCINES (50+ years) (3 of 3 - PCV20 or PCV21) 07/10/2025 07/10/2020, 02/01/2019 SCREENING FOR DIABETES 02/24/2026 02/24/2023 Adult Td,Tdap Booster 08/28/2034 08/28/2024, 023 RSV VACCINE (1 - 1-dose 75+ series) 2038 ZOSTER VACCINES Completed 09/28/2018, 07/30/2018 COVID-19 VACCINE Completed 08/28/2024, 09/2023, 12/05/2022, Additional history exists SMOKING STATUS SCREENING (Once After 26 Yrs) Completed 01/27/2025 HEPATITIS A VACCINES Aged Out No long er eligible based on patient's age to complete this topic HIB VACCINES Aged Out No longer eligi ble based on patient's age to complete this topic MENINGOCOCCAL VACCINES (ACWY) Aged Out No longer eligible based on patient's age to complete this topic MENINGOCOCCAL VACCINES (B) Aged Out N o longer eligible based on patient's age to complete this topic Medical Devices Not on file Procedures Procedure Name Priority Date/Time Associated Diagnosis Comments BASIC METABOLIC PANEL STAT 02/24/2023 2:36 PM EDT from Last 3 Months or Most Recently Relevant to Health Maintenance Results * Basic metabolic panel (02/24/2023 2:36 PM EDT) SODIUM 140 133 - 146 mmol/L [facility] CHLORIDE 105 96 - 108 mmol/L [facility] POTASSIUM 3.8 3.3 - 5.1 mmol/L [facility] CO2 22 21 - 35 mmol/L [facility] BUN 19 6 - 19 mg/dL [facility] CREATININE 1.20 0.5 - 1.5 mg/dL [facility] GLUCOSE 84 70 - 99 mg/dL [facility] CALCIUM 9.3 8.4 - 10.3 mg/dL [facility] EGFR 70 >59 mL/min/1.7 3m2 [facility] Comment:Estimated glomerular filtration rate calculated using the CKD-EPI refit equation. ANION GAP 17 10 - 20 mmol/L [facility] Blood 02/24/2023 2:36 PM EDT 02/24/2023 2:39 PM EDT Ye Vergara MD LAB BLOOD ORDERABLES Final Re sult [address] [phone] from Last 3 Months or Most Recently Relevant to Health Maintenance Insurance [facility] HMO POS EPO HMO O [place] [address] [place] [address] HMO O POS EPO O [place] [address] [place] [address] [facility] O [facility] POS EPO O [employer] HMO POS [place] [address] [place] [address] HMO Care Teams Gas Distribution Plant Operator Relationship Specialty Start Date End Date Luke Almonte MD [address] [place] [address] Dr SAAVEDRA [address] [place] [address] [place] [address] PCP - General Internal Medicine 08/03/20 Additional Source Comments The information contained in this document represents components of the legal health record. It is not the complete legal health record.[facility]
== END 2025-07-03 07:16 | disposition home or self-care (01) ==
LOC: HO.LNP 07:15
PROVIDERS: Visit Provider Internal Medicine
DX: R79.89 Other specified abnormal findings of blood chemistry (principal)
CPT/HCPCS: 80053

== ENCOUNTER 2025-09-21 11:08 | Inpatient (IN) | payer OTHER, SELFPAY ==
--- OUTSIDE RECORDS SUMMARY | 2024-08-23 10:45 | XMS_ITS ---
Author Organization Luke Almonte MD Address [address] [place] [phone] Care Team Providers Care Expert Witness Name Role Phone Luke Almonte Primary Care Provider Allergies Allergen (clinical drug ingredient) Drug/Non Drug Allergy documented on EMR Reaction Allergy Type Onset Date Status rizatriptan Rizatriptan Benzoate rash Drug Allergy Active morphine Morphine Sulfate cardiac arrest Drug Allergy Active lisinopril Lisinopril rash Drug Allergy Activ e REASON FOR VISIT rash groin area x 1 month Medications Medication SIG (Take, Route, Frequency, Duration) Notes Start Date End Date Status Rizatriptan Benzoate 5 MG 1 tablet Orall y Once a day for 1 day(s) Active Vitamin B2 Active Triamcinolone Acetonide 0.1 % 1 application Externally Two times a Week for 10 days 08/23/2024 Active Lexapro 10 MG TAKE 1 TABLET ONCE DAILY Orally Active Triamcinolone Acetonide 0.5 % 1 application Externally Two times a Week for 30 days 08/15/2021 Active Diflucan 100 MG 1 tablet Orally twic e a day for 10 days 08/23/2024 Active Permethrin 5 % 1 application Externally Two times a Week for 7 days 08/27/2020 Not-Taking ProAir RespiClick 108 (90 Base) MCG/ACT 2 puffs as needed Inhalation every 6 hrs for 25 Not-Taking Relpax 40 MG TAKE 1 TABLET BY JYOTI TH EVERY DAY NEEDED for 12 Not-Taking SUMAtriptan Succinate 100 TAKE 1 TABLET BY MOUTH DAILY for 9 Not-Taking Naratriptan HCl 2.5 MG 1 tablet Orally O nce a day for 1 day(s) Not-Taking Topamax 50 MG 50mg mg PM Orally twice a day Not-Taking Potassium Chloride ER 8 MEQ take 1 tablet by mouth every day with food Orally Once a day for 90 days Not-Taking Cyclobenzaprine HCl 10 MG TAKE 1/2 TABLE T BY MOUTH EVERY DAY AT BEDTIME for 60 Not-Taking Eletriptan Hydrobromide 40 MG 1 tablet Orally Once a day for 1 day(s) Not-Taking valACYclovir HCl 1 GM TAKE 1 TABLET BY M OUTH TWICE DAILY FOR 5 DAYS for 5 Active Aspir-Low 81 MG 1 tablet Orally Once a day for 30 day(s) 03/16/2023 Active Omeprazole 20 MG take 1 capsule once daily Orally Once a day for 90 days Active Verapamil HCl ER 240 MG take 1 tablet on ce a day Orally Once a day for 90 days Active Ondansetron 4 MG 1 tablet on the tong ue and allow to dissolve Orally Once a day for 30 day(s) Active Immunizations Vaccine Route Administration Date Status Comme nts Fluarix Quadrivalent - 150 IM Intramuscular 08/23/2024 Adm inistered Vital Signs Blood pressure systolic 104 mm Hg 08/23/20 24 Blood pressure diastolic 72 mm Hg 024 Height 75 in 08/23/2024 Weight 230 lbs 08/23/2024 BMI 28.74 kg/m2 08/23/2024 weight is up 6 pounds since 06-23-24 Encounters Encounter Location Date Provider Diagnosis Luke Almonte MD [address] [facility] [address] [place] [phone] 08/23/2024 Luke Almonte Encounter for immunization Z23 and Jock itch B35.6 Assessments Encounter Date Diagnosis (ICD Code) Assessment Notes Treatment Notes Treatment Clinical Notes Section Notes 08/23/2024 Encounter for immunization (ICD-10 - Z23) flu vaccine administered 08/23/2024 Jock itch (ICD-10 - B35.6) has tried multiple creams and it comes and goes. will add some milld steroids which should help with the discomfort, patient verbalized understanding of medication and directions for use Plan Of Treatment Medication Medication Name Sig Start Date Stop Date Notes Triamcinolone Acetonide 0.1 % 1 applicat ion Externally Two times a Week for 10 days 08/23/2024 Diflucan 100 MG 1 tablet Orally twic e a day for 10 days 08/23/2024 Treatment Notes Assessment Notes Encounter for immunization flu vaccine a dministered Jock itch has tried multiple c keshav and it comes and goes. will add some milld steroids which should help with the discomfort, patient verbalized understanding of medication and directions for use Next Appt Details Provider Name:Luke schulte, 10/30/2025 01:45:00 PM, [address] [place] [address], [address], [phone], Provider Name:Luke schulte, 04/30/2026 07:15:00 AM, [address] [place] [address], [place] [address], [place], [place], [phone], Provider Name:Luke schulte, 05/07/2026 01:00:00 PM, [address] [place] [address], [address], [phone], Progress Notes * Steve CABRAL VDOB:[birth year] (59 yo M)Acc No.[id number]:08/23/2024 Patient: Michaela candieKristaSteve V Provider: Joel Almonte MD :1965 A ge:59 Y S ex:Male Date:08/23/2024 Address:[address] [place], [place] [phone] Subjective: * Chief Complaints: * R sasha groin area x 1 month * HPI: S ymptom(s): patient is a 59 yo male here with complaint of a rash that is bleeding and painful. in groin area for one month using lamisil, jock itch spray. * ROS: G eneral/Constitutional: Denies C hills. D enies F atigue. D enies F ever. D enies H eadache. E NT: Patient denies d ecreased sense of smell , any loss of taste , sore throat. D enies S ore throat. R espiratory: Denies C ough. D enies S hortness of breath at rest. D enies S hortness of breath with exertion. G astrointestinal: Denies D iarrhea. D enalistair N ausea. M usculoskeletal: Patient denies m uscle aches. P eripheral Vascular: Patient denies r ed and blue toes. * Medical History: * Surgical History: * Hospitalization/Major Diagno stic Procedure: * Medications: T akingRizatriptan Benzoate 5 MG Tablet 1 tablet Orally Once a dayVitamin B2 Lexapro 10 MG Tablet TAKE 1 TABLET ONCE DAILY Orally Triamcinolone Acetonide 0.5 % Cream 1 application Externally Two times a WeekAspir-Low 81 MG Tablet Delayed Release 1 tablet Orally Once a dayOmeprazole 20 MG Capsule Delayed Release take 1 capsule once daily Orally Once a dayVerapamil HCl ER 240 MG Tablet Extended Release take 1 tablet once a day Orally Once a dayOndansetron 4 MG Tablet Disintegrating 1 tablet on the tongue and allow to dissolve Orally Once a dayvalACYclovir HCl 1 GM Tablet TAKE 1 TABLET BY MOUTH TWICE DAILY FOR 5 DAYS Taking Rizatriptan Benzoate 5 MG Tablet 1 tablet Orally Once a dayTaking Vitamin B2 Taking Lexapro 10 MG Tablet TAKE 1 TABLET ONCE DAILY Orally Taking Triamcinolone Acetonide 0.5 % Cream 1 application Externally Two times a WeekTaking Aspir-Low 81 MG Tablet Delayed Release 1 tablet Orally Once a dayTaking Omeprazole 20 MG Capsule Delayed Release take 1 capsule once daily Orally Once a dayTaking Verapamil HCl ER 240 MG Tablet Extended Release take 1 tablet once a day Orally Once a dayTaking Ondansetron 4 MG Tablet Disintegrating 1 tablet on the tongue and allow to dissolve Orally Once a dayTaking valACYclovir HCl 1 GM Tablet TAKE 1 TABLET BY MOUTH TWICE DAILY FOR 5 DAYS Not-Taking/PRNNaratriptan HCl 2.5 MG Tablet 1 tablet Orally Once a dayTopamax 50 MG Tablet 50mg mg PM Orally twice a dayPotassium Chloride ER 8 MEQ Tablet Extended Release take 1 tablet by mouth every day with food Orally Once a dayCyclobenzaprine HCl 10 MG Tablet TAKE 1/2 TABLET BY MOUTH EVERY DAY AT BEDTIME Eletriptan Hydrobromide 40 MG Tablet 1 tablet Orally Once a dayPermethrin 5 % Cream 1 application Externally Two times a WeekProAir RespiClick 108 (90 Base) MCG/ACT Aerosol Powder Breath Activated 2 puffs as needed Inhalation every 6 hrsRelpax 40 MG Tablet TAKE 1 TABLET BY MOUTH EVERY DAY NEEDED SUMAtriptan Succinate 100 Tablet TAKE 1 TABLET BY MOUTH DAILY Medication List reviewed and reconciled with the patientNot-Taking/PRN Naratriptan HCl 2.5 MG Tablet 1 tablet Orally Once a dayNot-Taking/PRN Topamax 50 MG Tablet 50mg mg PM Orally twice a dayNot-Taking/PRN Potassium Chloride ER 8 MEQ Tablet Extended Release take 1 tablet by mouth every day with food Orally Once a dayNot-Taking/PRN Cyclobenzaprine HCl 10 MG Tablet TAKE 1/2 TABLET BY MOUTH EVERY DAY AT BEDTIME Not-Taking/PRN Eletriptan Hydrobromide 40 MG Tablet 1 tablet Orally Once a dayNot-Taking/PRN Permethrin 5 % Cream 1 application Externally Two times a WeekNot-Taking/PRN ProAir RespiClick 108 (90 Base) MCG/ACT Aerosol Powder Breath Activated 2 puffs as needed Inhalation every 6 hrsNot-Taking/PRN Relpax 40 MG Tablet TAKE 1 TABLET BY MOUTH EVERY DAY NEEDED Not-Taking/PRN SUMAtriptan Succinate 100 Tablet TAKE 1 TABLET BY MOUTH DAILY Medication List reviewed and reconciled with the patient * Allergies: M orphine Sulfate: cardiac arrestLisinopril: rashRizatriptan Benzoate: rashyes[Allergies Verified] Objective: * Vitals: H t: 75, Wt:230, BMI:28.74, BP:104/72 weight is up 6 pounds since 06-23-24. * Examination: G eneral Examination: GENERAL APPEARANCE: alert, well hydrated, in no distress . SKIN: abnormal with severe fungal infection in the inguinal area onto the scrotum. Assessment: * Assessment: 1. J ock itch - B35.6 (Primary) 2 . E ncounter for immunization - Z23 Plan: * Treatment: 2. E ncounter for immunization Notes: flu vaccine administered * Immunizations: Fluarix Quadrivalent - 150 : 0.5 mL (Dose No:1) (Route: Intramuscular) given by Morenita Brice on Right Deltoid * Procedure Codes: 9 0656 FLU VACCINE NO PRESERV 3 & >51817 IMMUNIZATION ADMIN * Preventive Medicine: Immunizations: I nfluenza H ave you had a flu shot since the most recent July 24? Y es. * * Sign off status: Completed true * Provider: Joel Almonte MD Date: Generated for Kamilah solis/Bharati/Kristy on: 03:05 PM EDT History and Physical Notes * HPI (History of Present Illness) Category Sub-Category Detail Notes Category Not es Symptom(s) patient is a 59 yo male here with complaint of a rash that is bleeding and painful. in groin area for one month using lamisil, jock itch spray Examination Category Sub-Category Detail Notes Category Not es General Examination GENERAL APPEARANCE: alert, w ell hydrated, in no distress SKIN: abnormal with severe fungal infection in the inguinal area onto the scrotum
--- OUTSIDE RECORDS SUMMARY | 2024-10-17 05:30 | XMS_ITS ---
Author Organization Luke Almonte MD Address [address] [place] [phone] Care Team Providers Care Colon And Rectal Surgeon Name Role Phone Luke Almonte Primary Care Provider [phone] REASON FOR VISIT recheck rash thigh/groin area 1 one month Medications Medication SIG (Take, Route, Frequency, Duration) Notes Start Date End Date Status Diflucan 100 MG 1 tablet Orally twic e a day for 14 days 08/23/2024 Active SUMAtriptan Succinate 100 TAKE 1 TABLET BY MOUTH DAILY for 9 Not-Taking Ketoconazole 2 % 1 application Externally Once a day for 14 days 10/17/2024 Active ProAir RespiClick 108 (90 Base) MCG/ACT 2 puffs as needed Inhalation every 6 hrs for 25 Not-Taking Relpax 40 MG TAKE 1 TABLET BY JYOTI TH EVERY DAY NEEDED for 12 Not-Taking Eletriptan Hydrobromide 40 MG 1 tablet Orally Once a day for 1 day(s) Not-Taking Permethrin 5 % 1 application Externally Two times a Week for 7 days 08/27/2020 Not-Taking Potassium Chloride ER 8 MEQ take 1 tablet by mouth every day with food Orally Once a day for 90 days Not-Taking Cyclobenzaprine HCl 10 MG TAKE 1/2 TABLE T BY MOUTH EVERY DAY AT BEDTIME for 60 Not-Taking Topamax 50 MG 50mg mg PM Orally twice a day Not-Taking Omeprazole 20 MG TAKE 1 CAPSULE ONCE DAILY for 90 Active Triamcinolone Acetonide 0.1 % 1 application Externally Two times a Week for 10 days 08/23/2024 Active Ondansetron 4 MG 1 tablet on the tong ue and allow to dissolve Orally Once a day for 30 day(s) Active valACYclovir HCl 1 GM TAKE 1 TABLET BY M OUTH TWICE DAILY FOR 5 DAYS for 5 Active Naratriptan HCl 2.5 MG 1 tablet Orally O nce a day for 1 day(s) Not-Taking Aspir-Low 81 MG 1 tablet Orally Once a day for 30 day(s) 03/16/2023 Active Verapamil HCl ER 240 MG take 1 tablet on ce a day Orally Once a day for 90 days Active Lexapro 10 MG TAKE 1 TABLET ONCE DAILY Orally Active Triamcinolone Acetonide 0.5 % 1 application Externally Two times a Week for 30 days 08/15/2021 Active Vitamin B2 Active Nurtec 75 MG 1 tablet on the tong ue and allow to dissolve Orally Active Rizatriptan Benzoate 5 MG 1 tablet Orall y Once a day for 1 day(s) Active Vital Signs Blood pressure systolic 100 mm Hg 10/17/20 24 Blood pressure diastolic 76 mm Hg 024 Height 75 in 10/17/2024 Weight 227 lbs 10/17/2024 BMI 28.37 kg/m2 10/17/2024 Encounters Encounter Location Date Provider Diagnosis Luke Almonte MD [address] [place] [address] [place] [phone] 10/17/2024 Luke Almonte Jock itch B35.6 Assessments Encounter Date Diagnosis (ICD Code) Assessment Notes Treatment Notes Treatment Clinical Notes Section Notes 10/17/2024 Jock itch (ICD-10 - B35.6) patient verbalized understanding of medication and directions for use Plan Of Treatment Medication Medication Name Sig Start Date Stop Date Notes Diflucan 100 MG 1 tablet Orally twice a day for 14 days Ketoconazole 2 % 1 application Line Controller ally Once a day for 14 days 10/17/2024 Treatment Notes Assessment Notes Jock itch patient verbalized u nderstanding of medication and directions for use Next Appt Details Provider Name:Luke Schafer ier, 10/30/2025 01:45:00 PM, [address] [place] [address], [address] [facility], [place], [place], [phone], Provider Name:Luke Schafer ier, 04/30/2026 07:15:00 AM, [address] [place] [address], [address] [facility], [place], [place], [phone], Provider Name:Luke Schafer ier, 05/07/2026 01:00:00 PM, [address] [place] [address], [place] [address], [place], [place], [phone], Progress Notes * Steve CABRAL VDOB:[birth year] (59 yo M)Acc No.[id number]:10/17/2024 Progress Notes Patient: Steve Ashby V Provider: Joel Almonte MD :1965 A ge:59 Y S ex:Male Date:10/17/2024 Address:[address] [place], [place] [phone] Subjective: * Chief Complaints: * R echeck rash thigh/groin area 1 one month * HPI: S ymptom(s): patient is a 59 yo male started fluticasone aug 23 for 10 days and it helped. and started again but not helping. started neutec augstus. also continues with groin rash. * ROS: G eneral/Constitutional: Patient denies c hills , fatigue , fever , headache. ? E NT: Patient denies d ecreased sense of smell , any loss of taste , sore throat. M usculoskeletal: Patient denies m uscle aches. P eripheral Vascular: Patient denies r ed and blue toes. * Medical History: * Surgical History: * Hospitalization/Major Diagno stic Procedure: * Medications: T akingNurtec 75 MG Tablet Disintegrating 1 tablet on the tongue and allow to dissolve Orally Rizatriptan Benzoate 5 MG Tablet 1 tablet Orally Once a dayVitamin B2 Lexapro 10 MG Tablet TAKE 1 TABLET ONCE DAILY Orally Triamcinolone Acetonide 0.5 % Cream 1 application Externally Two times a WeekAspir-Low 81 MG Tablet Delayed Release 1 tablet Orally Once a dayVerapamil HCl ER 240 MG Tablet Extended Release take 1 tablet once a day Orally Once a dayOndansetron 4 MG Tablet Disintegrating 1 tablet on the tongue and allow to dissolve Orally Once a dayvalACYclovir HCl 1 GM Tablet TAKE 1 TABLET BY MOUTH TWICE DAILY FOR 5 DAYS Diflucan 100 MG Tablet 1 tablet Orally twice a dayTriamcinolone Acetonide 0.1 % Cream 1 application Externally Two times a WeekOmeprazole 20 MG Capsule Delayed Release TAKE 1 CAPSULE ONCE DAILY Taking Nurtec 75 MG Tablet Disintegrating 1 tablet on the tongue and allow to dissolve Orally Taking Rizatriptan Benzoate 5 MG Tablet 1 tablet Orally Once a dayTaking Vitamin B2 Taking Lexapro 10 MG Tablet TAKE 1 TABLET ONCE DAILY Orally Taking Triamcinolone Acetonide 0.5 % Cream 1 application Externally Two times a WeekTaking Aspir-Low 81 MG Tablet Delayed Release 1 tablet Orally Once a dayTaking Verapamil HCl ER 240 MG Tablet Extended Release take 1 tablet once a day Orally Once a dayTaking Ondansetron 4 MG Tablet Disintegrating 1 tablet on the tongue and allow to dissolve Orally Once a dayTaking valACYclovir HCl 1 GM Tablet TAKE 1 TABLET BY MOUTH TWICE DAILY FOR 5 DAYS Taking Diflucan 100 MG Tablet 1 tablet Orally twice a dayTaking Triamcinolone Acetonide 0.1 % Cream 1 application Externally Two times a WeekTaking Omeprazole 20 MG Capsule Delayed Release TAKE 1 CAPSULE ONCE DAILY Not-Taking/PRNNaratriptan HCl 2.5 MG Tablet 1 tablet [...] List reviewed and reconciled with the patient Objective: * Vitals: H t: 75, Wt:227, BMI:28.37, BP:100/76, Wt-k.97. * Examination: G eneral Examination: GENERAL APPEARANCE: w ell developed, well nourished. MALE GENITOURINARY: w ith rash in inguinal area. Assessment: * Assessment: 1. J ock itch - B35.6 (Primary) Plan: * Treatment: * Procedure Codes: * * Sign off status: Completed true * Provider: Joel Almonte MD Date: 12/17/2023 Generated for Kamilah solis/Bharati/Kristy on: 03:04 PM EDT History and Physical Notes * HPI (History of Present Illness) Category Sub-Category Detail Notes Category Not es Symptom(s) patient is a 59 yo male started fluticasone oct for 10 days and it helped. and started again but not helping. started neutec augstus. also continues with groin rash Examination Category Sub-Category Detail Notes Category Not es General Examination GENERAL APPEARANCE: well developed , well nourished MALE GENITOURINARY: with rash in inguina l area
--- OUTSIDE RECORDS SUMMARY | 2024-10-31 03:30 | XMS_ITS ---
Author Organization Luke Almonte MD Address [address] [place] [phone] Care Team Providers Care Network Operations Manager Name Role Phone Luke Almonte Primary Care Provider Results Component Value Reference Range Notes PSA,Total (Free>4and<10) Reviewed date:10/31/2024 12:49:34 PM Interpretation: Performing Lab:[facility], [address] [place] [phone] Notes/Report: PSA,Total (Free>4and<10) 0.38 0.00-4.00 ng/mL A Free PSA was not performed: The percentage of Free PSA can be used to enhance the differentiation of prostate cancer from benign prostatic disease in subjects whose PSA levels are between 4.0 and 10.0 ng/mL. For subjects whose PSA levels are below 4.0 or above 10.0 ng/mL, the risk of prostate cancer is determined on the basis of the PSA alone. Therefore the % Free PSA is recommended only for those subjects whose PSA levels are between 4.0 and 10.0 ng/mL. PSA methodology: Mercedes Alinity i Chemiluminescent Microparticle Immunoassay (CMIA) REASON FOR VISIT PSA Encounters Encounter Location Date Provider Diagnosis Luke Almonte MD [address] [place] [address] [place] [phone] 10/31/2024 Luke Almonte Rising PSA level R97.20 Assessments Encounter Date Diagnosis (ICD Code) Assessment Notes Treatment Notes Treatment Clinical Notes Section Notes 10/31/2024 Rising PSA level (ICD-10 - R97.20) Plan Of Treatment Next Appt Details Provider Name:Luke schulte, 10/30/2025 01:45:00 PM, [address] [place] [address], [address], [phone], Provider Name:Luke schulte, 04/30/2026 07:15:00 AM, [address] [place] [address], [address], [phone], Provider Name:Luke schulte, 05/07/2026 01:00:00 PM, [address] [place] [address], [address], [phone], Progress Notes * Steve CABRAL VDOB:[birth year] (60 yo M)Acc No.[id number]:10/31/2024 Progress Note Patient: Steve LIZAMA V Provider: Joel Almonte MD :1965 A ge:59 Y S ex:Male Date:10/31/2024 Address:[address] [place] [address], [facility] Subjective: * Chief Complaints: * 1 . PSA. * Medical History: Objective: * Vitals: Assessment: * Assessment: 1. R ising PSA level - R97.20 (Primary) Plan: * Treatment: * Procedure Codes: 3 6415 VENIPUNCT, ROUTINE* * * The named appointment provid er may or may not be the originator of this progress note, and it is not deemed complete until electronically signed by the appointment provider. Sign off status: Pending * Provider: Joel Almonte MD Date: 1 01/01/2024 Generated for Kamilah solis/Bharati/Kristy on: 03:04 PM EDT
--- OUTSIDE RECORDS SUMMARY | 2024-11-01 05:15 | XMS_ITS ---
Author Organization Luke Almonte MD Address [address] [place] [phone] Care Team Providers Care Photogravure Press Operator Name Role Phone Luke Almonte Primary Care Provider [phone] Allergies Allergen (clinical drug ingredient) Drug/Non Drug [...] kg/m2 11/01/2024 weight is down 4 pounds [facility] [place] 10-17-24 Encounters Encounter Location Date Provider Diagnosis Luke Almonte MD [address] [place] [address] [place] [phone] 11/01/2024 Luke Almonte Rising PSA level R97.20 [...] Months complete , Reason: Provider Name:Luke schulte, 10/30/2025 01:45:00 PM, [address] [place] [address], [address], [phone], Provider Name:Luke schulte, 04/30/2026 07:15:00 AM, [address] [place] [address], [address], [phone], Provider Name:Luke schulte, 05/07/2026 01:00:00 PM, [address] [place] [address], [address], [phone], Progress Notes * Steve CABRAL VDOB:[birth year] (59 yo M)Acc No.[id number]:11/01/2024 Progress Notes Patient: Steve Ashby V Provider: Joel Almonte MD :1965 A ge:59 Y S ex:Male Date:11/01/2024 Address:[address] [place] [address], [id number] Subjective: * Chief Complaints: * 6 mo [...] true * Provider: Joel Almonte MD Date: 1 01/02/2024 Generated for Kamilah solis/Bharati/eTransmitting on: 03:04 PM EDT History and Physical [...]
--- OUTSIDE RECORDS SUMMARY | 2024-11-01 06:27 | XMS_ITS ---
Author Organization Luke Almonte MD Address [address] [place] [phone] Care Team Providers Care Continuous Wave Operator Name Role Phone Luke Almonte Primary Care Provider REASON FOR VISIT Resend Diflucan Medications Medication SIG (Take, Route, Fr equency, Duration) Notes Start Date End Date Status Diflucan 100 MG 1 tablet Orally daily for 10 days 11/01/2024 Active Encounters Encounter Location Date Provider Diagnosis Luke Almonte MD [address] [place] [phone] 11/01/2024 Luke Almonte Rising PSA level R97.20 Assessments Encounter Date Diagnosis (ICD Code) Assessment Notes Treatment Notes Treatment Clinical Notes Section Notes 11/01/2024 Rising PSA level (ICD-10 - R97.20) Plan Of Treatment Medication Medication Name Sig Start Date Stop Date Notes Diflucan 100 MG 1 tablet Orally daily for 10 days 11/01/20 24 Next Appt Details Provider Name:Luke Schafer ier, 10/30/2025 01:45:00 PM, [address] [place] [address], Suite [facility], [place], [phone], Provider Name:Luke Schafer ier, 04/30/2026 07:15:00 AM, [address] [place] [address], Suite [facility], [place], [place], [phone], Provider Name:Luke Schafer ier, 05/07/2026 01:00:00 PM, [address] [place] [address], Suite [facility], [place], [place], [phone], Progress Notes * Steve CABRAL VDOB:[birth year] (59 yo M)Acc No.[id number]:11/01/2024 Patient: Steve Ashby V :1965 A ge:59 Y S ex:Male Address:[address] [place] [address], [place] [address] * Refills Refill Diflucan Tablet, 100 MG, Orally, 10 Tablet, 1 tablet, daily, 10 days, Refills=1 * true * Date: Generated for Kamilah solis/Bharati/Krystinaitting on: 03:05 PM EDT
--- OUTSIDE RECORDS SUMMARY | 2025-04-24 03:30 | XMS_ITS ---
Author Organization Luke Almonte MD Address [address] [place] [phone] Care Team Providers Care Reed Man Name Role Phone Luke Almonte Primary Care Provider Results Component Value Reference Range Notes Complete Blood Count Auto Di ff Reviewed date:04/24/2025 02:09:51 PM Interpretation: Performing Lab:[facility], [address] [place] [phone] Notes/Report: White Blood Count 5.5 4.8-10.8 X10*3/uL [...] Panel Reviewed date:04/24/2025 11:50:23 AM Interpretation: Performing Lab:[facility], [address] [place] [phone] Notes/Report: Bilirubin Total 0.5 0.0-1.0 mg/dL Bilirubin Direct 0.2 0.0-0.5 mg/dL Aspartate Amino Transferase 40 5-37 U/L Alanine Aminotransferase 53 0-40 U/L Total Protein 7.0 6.5-8.0 g/dL Albumin Level 4.5 3.5-5.0 g/dL Alkaline Phosphatase 69 39-117 U/L Lipid Panel Reviewed date:04/24/2025 11:50:11 AM Interpretation: Performing Lab:[facility], [address] [place] [phone] Notes/Report: Triglycerides 106 <150 mg/dL Desirable Triglyceride: [...] (Free>4and<10) Reviewed date:04/24/2025 11:50:01 AM Interpretation: Performing Lab:[address] [phone] Notes/Report: PSA,Total (Free>4and<10) 0.75 0.00-4.00 ng/mL A [...] Random Reviewed date:04/24/2025 12:50:53 PM Interpretation: Performing Lab:[address] [phone] Notes/Report: Creatinine Urine 258.98 Microalbumin Urine 12.0 Microalbum/Creatinine Ratio Ur 4.6 <30 ug/mg cr Albumin/Creatinine Ratio Reference Ranges: Normal: < 30 ug/mg creatinine Microalbuminuria: 30 - 300 ug/mg creatinine Clinical Albuminuria: > 300 ug/mg creatinine Hemoglobin A1c Reviewed date:04/24/2025 11:49:46 AM Interpretation: Performing Lab:[address] [place] [address] Notes/Report: Hemoglobin A1c % 5.2 <6.0 % [...] average glucose, using the formula of the U7L-Bvlcxii Average Glucose study (ADAG), Diabetes Care, Vol.31,#8, 2007 UA ClnCatch+Micro w/rflx Cul t Reviewed date:04/24/2025 04:31:47 PM Interpretation: Performing Lab:[facility], [address] [place] [phone] Notes/Report: Urine, Clean Catch Color Urine Dark Yellow Appearance Urine Clear PH 6.5 5.0-9.0 Glucose Urine UA Negative Negative mg/dL Urine Blood Negative Negative Specific Aldrich - Urine 1.025 1.005-1.025 Urine Protein Negative [...] Location Date Provider Diagnosis Luke Almonte MD [address] [place] [address] [address] [place], [place] [phone] 04/24/2025 Luke Almonte Blood tests for rout [...] Provider Name:Luke Schafer ier, 10/30/2025 01:45:00 PM, [address], [address], [place], [phone], Provider Name:Luke Schafer ier, 04/30/2026 07:15:00 AM, [address], [address], [place], [phone], Provider Name:Luke Schafer ier, 05/07/2026 01:00:00 PM, [address], [address], [place], [phone], Progress Notes * PRABHA Steve VDOB:[birth year] (60 yo M)Acc No.[id number]:04/24/2025 Progress Note Patient: Steve LIZAMA V Provider: Joel Almonte MD :1965 A ge:59 Y S ex:Male Date:04/24/2025 Address:[address] [place] [address], [id number] Subjective: * Chief Complaints: * 1 . [...] MD Date: 0 04/24/2025 Generated for Kamilah solis/Bharati/Kristy on: 1 03:06 PM EDT
--- OUTSIDE RECORDS SUMMARY | 2025-05-01 09:00 | XMS_ITS ---
Author Organization Luke Almonte MD Address [address] [place] [phone] Care Team Providers Care Galley Worker Name Role Phone Luke Almonte Primary Care Provider [phone] Allergies Allergen (clinical drug ingredient) Drug/Non Drug [...] Date Provider Diagnosis Luke Almonte MD [address] [facility] [address] [place] [phone] 05/01/2025 Luke Almonte Annual physical exam Z00.00 [...] Up: 6 Months, Reason: Provider Name:Luke schulte, 10/30/2025 01:45:00 PM, [address], [address], [place], [place], [phone], Provider Name:Luke Schafer freddyr, 04/30/2026 07:15:00 AM, [address] [facility], [address], [place], [place], [phone], Provider Name:Luke Schafer ier, 05/07/2026 01:00:00 PM, [address] [facility], [address], [place], [place], [phone], Progress Notes * Steve CABRAL VDOB:[birth year] (59 yo M)Acc No.[id number]:05/01/2025 Progress Notes Patient: Steve LIZAMA V Provider: Joel Almonte MD :1965 A ge:59 Y S ex:Male Date:05/01/2025 Address:[address] [place] [address] [id number] Subjective: * Chief Complaints: * A NNUAL [...] Materials. Pets: dog. Travel outside of the [facility]: yes, [place]. * Medications: T akingNurtec 75 MG Tablet [...] mg/dL Urine Blood Negative Negative - Specific [place] - Urine 1.025 1.005-1.025 - Urine Protein [...] 2. E levated LFTs L AB: Comprehensive [place]. Panel Fast (Ordered for 07/01/2025) Notes: will [...] MD Date: 0 05/01/2025 Generated for Kamilah solis/Bharati/Krystinaitting on: 1 03:04 PM EDT History and Physical Notes [...]
--- OUTSIDE RECORDS SUMMARY | 2025-06-29 04:38 | XMS_ITS ---
Author Organization Luke Almonte MD Address [address] [place] [phone] Care Team Providers Care Cottage Cheese Maker Name Role Phone Luke Almonte Primary Care Provider REASON FOR VISIT ER Visit rec'd Encounters Encounter Location Date Provider Diagnosis Luke Almonte MD [address] [place] [address] [address] [place] [phone] 06/29/2025 Luke Almonte Plan Of Treatment Next Appt Details Provider Name:uLke schulte, 10/30/2025 01:45:00 PM, [address] [place] [address], [address], [phone], Provider Name:Luke schulte, 04/30/2026 07:15:00 AM, [address] [place] [address], [address], [phone], Provider Name:Luke Schafer ier, 05/07/2026 01:00:00 PM, [address], [address], [place], [place], [phone], Progress Notes * Steve CABRAL VDOB:[birth year] (59 yo M)Acc No.[id number]:06/29/2025 Patient: Michaela Steve HOBSON V :1965 A ge:59 Y S ex:Male Address:[address] [place] [address], [place] [facility] [place] [address] * true * Date: Generated for Kamilah solis/Bharati/Krystinaitting on: 03:04 PM EDT
--- OUTSIDE RECORDS SUMMARY | 2025-07-03 03:30 | XMS_ITS ---
Author Organization Luke Almonte MD Address [address] [place] [phone] Care Team Providers Care Acetylene Plant Operator Name Role Phone Luke Almonte Primary Care Provider Results Component Value Reference Range Notes Comprehensive [place]. Panel Fa st Reviewed date:07/03/2025 06:01:40 PM Interpretation: Performing Lab:[facility], [address] [place] [address] Notes/Report: Sodium 142 135-145 mmol/L Potassium 4.0 [...] Location Date Provider Diagnosis Luke Almonte MD [address] [place] [phone] 07/03/2025 Luke Almonte Elevated LFTs R79.89 Assessments Encounter Date Diagnosis (ICD Code) Assessment Notes Treatment Notes Treatment Clinical Notes Section Notes 07/03/2025 Elevated LFTs (ICD-10 - R79.89) Plan Of Treatment Next Appt Details Provider Name:Luke schulte, 10/30/2025 01:45:00 PM, [address] [place] [address], [address], [phone], Provider Name:Luke schulte, 04/30/2026 07:15:00 AM, [address] [place] [address], [address], [phone], Provider Name:Luke schulte, 05/07/2026 01:00:00 PM, [address] [place] [address], [phone], Progress Notes * Steve CABRAL VDOB:[birth year] (60 yo M)Acc No.[id number]:07/03/2025 Progress Note Patient: Steve LIZAMA V Provider: Joel Almonte MD :1965 A ge:59 Y S ex:Male Date:07/03/2025 Address:[address] [place] [address] [id number] Subjective: * Chief Complaints: * 1 . [...] 0 07/03/2025 Generated for Kamilah solis/Bharati/Kristy on: 03:04 PM EDT
[2025-09-21] VITALS (7 sets, daily range): BP systolic 93–103; BP diastolic 54–70; PULSE 59–66; RESP 12–18; TEMP 36.2–36.9; O2SAT 93–97; BMI 28.2; BMI 29.3
--- NOTE | ~2025-09-21 | CT_ITS ---
EXAMINATION: CT ABDOMEN AND PELVIS WITH CONTRAST CLINICAL INFORMATION: Hypotension. Lower abdominal pain. COMPARISON: None available. TECHNIQUE: Multidetector volumetric images were obtained from the superior aspect of the liver through the pubic symphysis following administration 85 mL of Omnipaque 350 intravenous contrast. Sagittal and coronal reformatted images were obtained on the technologist's workstation. Oral contrast: No This CT examination was performed using dose optimization techniques as appropriate, variously including the following: *Automated exposure control *Adjustment of mA and/or kV according to patient size (this includes techniques or standardized protocols for targeted exams where dose is matched to indication/reason for exam; i.e. extremities or head) *Use of iterative reconstruction technique DLP: 696 mGy-cm FINDINGS: LUNG BASES: Patchy pulmonary groundglass, lung bases. LIVER, GALLBLADDER, AND BILIARY TREE: Liver measures 21 cm. Decreased enhancement pattern. No gross solid or cystic lesion. Main portal veins are patent. Intrahepatic portion of the IVC is patent. No pericholecystic fluid collection or gallbladder wall thickening. No gallbladder distention. No intrahepatic or extrahepatic biliary ductal dilatation. PANCREAS: No focal mass. No main pancreatic ductal dilatation. No peripancreatic fluid collection. SPLEEN: 13 cm. No solid or cystic lesion. ADRENAL GLANDS: No nodular lesions. KIDNEYS AND URETERS: No hydronephrosis. No gross enhancing renal mass. No gross nephrolithiasis. lobulations, bilaterally. Normal enhancement pattern of the renal cortex. The ureters are not dilated. BLADDER: Bladder wall thickening. No bladder distention. GASTROINTESTINAL TRACT: Gas and fluid-filled prominent ileal loops. Mild intestinal wall thickening. Terminal ileum is normal. Appendix is normal. There is a horizontal position of the cecum in the midline of the lower peritoneal cavity. Few scattered diverticula throughout the large intestine. No ascites. No pneumatosis intestinalis. No pneumoperitoneum. No peripheral enhancing fluid collection, peritoneal cavity.. ABDOMINAL WALL: Small fat-containing umbilical hernia. LYMPH NODES: Nonspecific prominent mesenteric and retroperitoneum. VASCULAR: There is a 22 mm maximal length segmental mixed plaque in the proximal to mid celiac trunk/proper hepatic artery measuring 14 mm in maximum diameter. Abdominal aorta demonstrates no aneurysm or dissection. PELVIC VISCERA: Not enlarged. OSSEOUS STRUCTURES: Syndesmophyte formation at the sacroiliac joints. Facet joint hypertrophy at L5-S1, bilaterally. Multilevel small marginal osteophyte formation at L2-3 to L5-S1. Mild degenerative changes in the coxofemoral joints. No acute fracture or listhesis in the axial skeleton. Probable bony height and, right femur. CT/CT abdomen pelvis w IV con IMPRESSION: Probable mild enteritis and questionable internal hernia without intestinal obstruction pattern. Hepatosplenomegaly and hepatic steatosis. 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 Small fat-containing umbilical hernia. Diverticular disease, colon. Fleischner guidelines were followed. Electronically signed by: Adriel Castrejon MD 09/21/2025 01:38 PM EDT
--- OUTSIDE RECORDS SUMMARY | 2025-09-21 06:30 | XMS_ITS ---
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 Diverticulitis, Patient wants to go to [place] [facility] Medications Medication SIG (Take, Route, Frequency, [...] HCl 1 GM TAKE 1 TABLET BY [facility] TWICE DAILY FOR 5 DAYS for 5 [...] Status W/U Status Risk Notes Problem Diverticulitis (23489026) Diverticulitis (K57.92) Active confirmed Vital Signs Blood pressure systolic 82 mm Hg 09/21/20 25 Blood pressure diastolic 60 mm Hg 025 Height 75 in 09/21/2025 Weight 223 lbs 09/21/2025 BMI 27.87 kg/m2 09/21/2025 Encounters Encounter Location Date Provider Diagnosis Luke Almonte MD [address] [place] [address] [place] [id number] 09/21/2025 Luke Almonte Urinary retention R33.9 and [...] Provider Name:Luke Schafer ier, 10/30/2025 01:45:00 PM, [address] [place] [address], Suite [facility], [place], [place], [phone], Provider Name:Luke Schafer ier, 04/30/2026 07:15:00 AM, [address] [place] [address], Suite [facility], [place], [place], [phone], Provider Name:Luke Schafer ier, 05/07/2026 01:00:00 PM, [address] [place] [address], Suite [facility], [place], [place], [phone], Progress Notes * Steve CABRAL VDOB:[birth year] (60 yo M)Acc No.[id number]:09/21/2025 Progress Notes Patient: Sylvia LIZAMAe Rashmi Provider: Joel Almonte MD :1965 A ge:60 Y S ex:Male Date:09/21/2025 Address:[address] [place] [address], [place] Pearson [id number] Subjective: * Chief Complaints: * 1 . ? Diverticulitis. 2. Patient wants to go to [place] [facility]. * HPI: S ymptom(s): patient is a [...] D enies V omiting. * Medical History: c olonoscopy discussed 2013; colonoscopy 06/23/16 w/Dr. Phillips (repeat 10 yrs) colonoscopy 2020 with tubular adenoma, colonoscopy 11/12 pending path repeat in 5 years, Dr milton. * Medications: T aking Nurtec 75 MG Tablet Disintegrating 1 tablet on the tongue and allow to dissolve Orally , Taking Vitamin B2 , Taking Triamcinolone Acetonide 0.5 % Cream 1 application Externally Two times a Week , Taking Aspir-Low 81 MG Tablet Delayed Release 1 tablet Orally Once a day , Taking Ondansetron 4 MG Tablet Disintegrating 1 tablet on the tongue and allow to dissolve Orally Once a day , Taking valACYclovir HCl 1 GM Tablet TAKE 1 TABLET BY MOUTH TWICE DAILY FOR 5 DAYS , Taking Triamcinolone Acetonide 0.1 % Cream 1 application Externally Two times a Week , Taking Omeprazole 20 MG Capsule Delayed Release TAKE 1 CAPSULE ONCE DAILY , Taking Ketoconazole 2 % Cream 1 application Externally Once a day , Taking Verapamil HCl ER 240 MG Tablet Extended Release TAKE 1 TABLET ONCE A DAY , Taking Escitalopram Oxalate 10 MG Tablet TAKE 1 TABLET BY MOUTH EVERY DAY IN THE MORNING , Not-Taking/PRN Rizatriptan Benzoate 5 MG Tablet 1 tablet Orally Once a day , Not-Taking/PRN Diflucan 100 MG Tablet 1 tablet Orally daily , Not-Taking/PRN Diflucan 100 MG Tablet 1 tablet Orally twice a day , Not-Taking/PRN Naratriptan HCl 2.5 MG Tablet 1 tablet Orally Once a day , Not-Taking/PRN Topamax 50 MG Tablet 50mg mg PM Orally twice a day , Not- Taking/PRN Potassium Chloride ER 8 MEQ Tablet Extended Release take 1 tablet by mouth every day with food Orally Once a day , Not-Taking/PRN Cyclobenzaprine HCl 10 MG Tablet TAKE 1/2 TABLET BY MOUTH EVERY DAY AT BEDTIME , Not-Taking/PRN Eletriptan Hydrobromide 40 MG Tablet 1 tablet Orally Once a day , Not-Taking/PRN Permethrin 5 % Cream 1 application Externally Two times a Week , Not-Taking/PRN ProAir RespiClick 108 (90 Base) MCG/ACT Aerosol Powder Breath Activated 2 puffs as needed Inhalation every 6 hrs , Not-Taking/PRN Relpax 40 MG Tablet TAKE 1 TABLET BY MOUTH EVERY DAY NEEDED , Not-Taking/PRN SUMAtriptan Succinate 100 Tablet TAKE 1 TABLET BY MOUTH DAILY , Medication List reviewed and reconciled with the patient * Allergies: M orphine Sulfate: cardiac arrest, Lisinopril: rash, Rizatriptan Benzoate: rash. Objective: * Vitals: H t: 75, Wt: [...] to er feels he can walk * * The named appointment provid er may or may not be the originator of this progress note, and it is not deemed complete until electronically signed by the appointment provider. Sign off status: Pending * Provider: Joel Almonte MD Date: Generated for Kamilah solis/Bharati/Kristy on: 03:06 PM EDT History and Physical Notes * Examination Category Sub-Category Detail Notes Category Not es General Examination GENERAL APPEARANCE: alert, w ell hydrated, in severe pain HEART: no murmurs, rubs, ga llops, regular rate and rhythm ABDOMEN: marked tenderness in entire abdomen SKIN: good turgor
--- NOTE | 2025-09-21 11:36 | ED.GENADULT ---
HPI - General Adult General Chief complaint: Abdominal Pain Stated complaint: abd pain Time Seen by Provider: 09/21/25 11:47 Source: patient Mode of arrival: ambulatory Limitations: no limitations History of Present Illness HPI narrative: This is a 60 years old the patient sent by his primary care physician because of the abdominal pain. The pain started yesterday he has nausea but no vomiting no diarrhea, he has a history of complicated diverticulitis with bowel resection. He has no fever no chills Onset (ago): day(s) (1) Location: abdomen Radiation: non-radiation Severity: moderate Quality: burning Pain Consistency: constant Exacerbating factors: none Associated symptoms: denies other symptoms Related Data Home Medications ?Medication ?Instructions ?Recorded ?Confirmed escitalopram oxalate 10 mg tablet 10 mg PO DAILY 04/14/23 09/21/25 (Lexapro) omeprazole 20 mg capsule,delayed 20 mg PO DAILY 04/14/23 09/21/25 release topiramate 50 mg tablet 50 mg PO BEDTIME 04/14/23 09/21/25 verapamil 240 mg tablet,extended 240 mg PO BEDTIME 04/14/23 09/21/25 release bupropion HCl 150 mg 24 hr tablet, 150 mg PO DAILY 09/21/25 09/21/25 extended release Previous Rx's ?Medication ?Instructions ?Recorded cephalexin 500 mg capsule 500 mg PO Q12H 7 days #14 caps 09/22/25 metronidazole 500 mg tablet 500 mg PO Q12H 7 days #14 tabs 09/22/25 oxycodone 5 mg tablet 5 mg PO TID PRN pain 3 days #9 tabs 09/22/25 polyethylene glycol 3350 17 17 g PO DAILY #238 grams 09/22/25 gram/dose oral powder (Miralax) tamsulosin 0.4 mg capsule 0.4 mg PO DAILY 14 days #14 caps 09/22/25 Allergies Allergy/AdvReac Type Severity Reaction Status Date / Time morphine Allergy Difficulty Verified 09/21/25 11:29 Breathing seafood Allergy Unknown Verified 09/21/25 11:29 Review of Systems Constitutional: Constitutional: Reports no additional constitutional complaints Cardiovascular: Cardiovascular: Reports no additional cardiovascular complaints [facility] Past Medical History Attestation statement: The following information was validated with the patient. [facility] Narrative: History of complicated diverticulitis/history of bowel resection history of migraines Medical History (Updated 09/21/25 @ 16:31 by BERNARDA Salinas) Diverticulitis GERD (gastroesophageal reflux disease) Anemia Surgical History History of colon surgery Social History Social History Household Members: Family Housing: Homeless Patient Tobacco Use Status: Never used Tobacco service: No Physical Exam ED Exam Exam: On examination he is not toxic-appearing Vital Signs: Vital Signs - 24 hr 09/21/25 11:28 09/21/25 12:07 09/21/25 13:06 Temperature 97.3 F 98.3 F Pulse Rate 65 66 Respiratory Rate 16 16 14 Blood Pressure 96/54 L 103/70 Pulse Oximetry 96 96 Oxygen Delivery Method Room Air Room Air 09/21/25 14:11 Temperature Pulse Rate Respiratory Rate 16 Blood Pressure 93/61 Pulse Oximetry 97 Oxygen Delivery Method Room Air BMI result Body Mass Index 28.2 Const General: cooperative Nutritional Appearance: well nourished Orientation/consciousness: patient oriented x3 HENMT Head: Yes normal to inspection General nose exam: Normal external nose present Face and sinus: Yes normal facial exam Mouth: Normal oral and palatal mucosa present Neck Neck: Yes normal visual inspection Chest Chest palpation & inspection: normal inspection of the chest Resp Effort & Inspection: normal respiratory effort Auscultation: clear to auscultation bilaterally Cardio Jugular venous distension: no JVD Rate: regular rate Rhythm: regular rhythm GI Inspection: Yes normal to inspection Palpation (GI): Soft to palpation and Tenderness to palpation present (GI) in the LLQ Skin General skin exam: no rashes or lesions noted and elasticity normal Neuro General: patient oriented x3 Course Course Course Narrative: RME: 60-year-old male with past medical history of diverticulitis presents to ED for left lower quadrant abdominal pain radiating to the right with burning on urination difficulty urinating. Patient is found to be hypotensive in triage. Patient to be brought back to the ED. Labs fluids cat scan ordered. Medications Administered Discontinued Medications Generic Name Dose Route Start Last Admin Trade Name Freq PRN Reason Stop Dose Admin Bupropion HCl 150 mg 09/22/25 09:00 09/22/25 09:02 Bupropion Hcl Xl 150 Mg Tab.Er.24h PO 150 mg DAILY JANETH Administration Cephalexin HCl 500 mg 09/22/25 09:00 09/22/25 09:03 Cephalexin 500 Mg Capsule PO 500 mg Q12H JANETH Administration Docusate Sodium 100 mg 09/21/25 21:00 09/22/25 07:51 Docusate Sodium 100 Mg Capsule PO 100 mg BID JANETH Administration Enoxaparin Sodium 40 mg 09/21/25 16:00 09/21/25 16:12 Enoxaparin Sodium 40 Mg/0.4 Ml Syringe SUBCUT 40 mg Q24H JANETH Administration Escitalopram Oxalate 10 mg 09/22/25 09:00 09/22/25 09:03 Escitalopram Oxalate 10 Mg Tablet PO 10 mg DAILY JANETH Administration Hydromorphone HCl 0.5 mg 09/21/25 12:45 09/21/25 13:06 Hydromorphone Hcl 0.5 Mg/0.5 Ml Syringe IVPUSH 09/21/25 12:46 0.5 mg ONCE ONE Administration Protocol Hydromorphone HCl 0.5 mg 09/21/25 14:48 09/21/25 15:15 Hydromorphone Hcl 0.5 Mg/0.5 Ml Syringe IVPUSH 09/21/25 14:49 0.5 mg ONCE ONE Administration Protocol Hydromorphone HCl 0.5 mg 09/21/25 15:59 09/22/25 07:51 Hydromorphone Hcl 0.5 Mg/0.5 Ml Syringe IVPUSH 0.5 mg Q4H PRN Administration Pain, Severe (Pain Scale 7-10) Protocol Sodium Chloride 1,000 mls @ 999 mls/hr 09/21/25 11:31 09/21/25 13:07 Ns IV 09/21/25 12:31 Infused .Q1H1M STA Infusion Sodium Chloride 1,000 mls @ 999 mls/hr 09/21/25 12:00 09/21/25 13:08 Ns IVCONT 09/21/25 13:00 Infused .Q1H1M JANETH Infusion Piperacillin Sod/Tazobactam 100 mls @ 200 mls/hr 09/21/25 12:22 09/21/25 13:08 Sod 4.5 gm/ Sodium Chloride IV 09/21/25 12:51 Infused ONCE ONE Infusion Sodium Chloride 1,000 mls @ 999 mls/hr 09/21/25 14:00 09/21/25 15:14 Ns IVCONT 09/21/25 15:00 Infused .Q1H1M JANETH Infusion Lactated Ringer's 1,000 mls @ 999 mls/hr 09/21/25 14:15 09/21/25 15:14 Lr IV 09/21/25 15:15 Infused .Q1H1M JANETH Infusion Lactated Ringer's 1,000 mls @ 125 mls/hr 09/21/25 16:00 09/22/25 09:06 Lr IVCONT Infused .Q8H JANETH Infusion Ceftriaxone Sodium 1 gm/ 50 mls @ 100 mls/hr 09/21/25 18:00 09/21/25 18:24 Sodium Chloride IV Infused Q24H JANETH Infusion Influenza Virus Vaccine 0.5 ml 09/22/25 09:00 09/22/25 07:52 Flu Vacc [id number](6mo Up)/Pf 0.5 Ml Syringe IM 09/22/25 09:01 0.5 ml .ONCE ONE Administration Iohexol 100 ml 09/21/25 13:17 09/21/25 13:18 Iohexol 350 Mg/Ml 100 Ml Infus..Btl IV 09/21/25 13:18 85 ml ONCE ONE Administration Melatonin 6 mg 09/21/25 15:48 09/22/25 02:26 Melatonin 3 Mg Tablet PO 6 mg BEDTIME PRN Administration Insomnia Metronidazole 500 mg 09/22/25 09:00 09/22/25 09:02 Metronidazole 500 Mg Tablet PO 500 mg Q12H JANETH Administration Omeprazole 20 mg 09/22/25 09:00 09/22/25 09:03 Omeprazole 20 Mg Capsule.Dr PO 20 mg DAILY JANETH Administration Polyethylene Glycol 17 gm 09/21/25 21:00 09/22/25 07:51 Polyethylene Glycol 3350 17 Gm Powd.Pack PO 17 gm BID JANETH Administration Sodium Chloride 3 ml 09/21/25 16:00 09/22/25 07:53 0.9 % Sodium Chloride Flush 3 Ml Syringe IVFLUSH Not Given QSHIFT JANETH Tamsulosin HCl 0.4 mg 09/22/25 09:00 09/22/25 09:02 Tamsulosin Hcl 0.4 Mg Capsule PO 0.4 mg DAILY JANETH Administration Verapamil HCl 240 mg 09/22/25 09:00 09/22/25 09:03 Verapamil Hcl Sr 240 Mg Tablet.Er PO 240 mg BEDTIME JANETH Administration Protocol Medical Decision Making Medical Decision Making [facility] Narrative: Patient presented to the emergency department complaining of left lower quadrant abdominal pain working diagnosis acute diverticulitis we will obtain labs CT he has an allergy to morphine Differential Diagnosis Differential Diagnoses: The differential diagnosis associated with the presentation includes Diverticulitis/bowel perforation/bowel obstruction Admission/Observation Consideration of admission/observation: Escalation of care including admission/observation considered Lab Data [facility] Lab Attestation statement: I reviewed the patient's lab results. 09/22/25 06:13 09/22/25 06:13 Labs: Lab Results 09/21/25 09/21/25 Range/Units 12:01 13:28 WBC 15.7 H (4.8-10.8) X10*3/uL RBC 4.41 L (4.60-5.80) X10*6/uL Hgb 14.0 (14.0-18.0) g/dl Hct 40.7 L (42.0-52.0) % MCV 92.3 (80.0-98.0) fL MCH 31.7 (27.0-33.0) pg MCHC 34.4 (31.0-36.0) g/dl RDW 13.5 (11.0-16.0) % Plt Count 221 (160-400) X10*3/uL MPV 8.5 L (9.4-12.4) fL Immature Gran % (Auto) 0.4 (0.0-0.4) % Neut % (Auto) 79.9 H (45-73) % Lymph % (Auto) 10.6 L (20-40) % Morrill % (Auto) 8.3 (2-11) % Eos % (Auto) 0.5 (0-4) % Baso % (Auto) 0.3 (0-2) % Lymph # (Auto) 1.7 (1.2-4.9) X10*3/uL Morrill # (Auto) 1.3 H (0.1-1.2) X10*3/uL Eos # (Auto) 0.1 (0.0-0.4) X10*3/uL Baso # (Auto) 0.1 (0.0-0.2) X10*3/uL Abs Immat Gran (auto) 0.07 H (0.00-0.03) X10*3/uL Absolute Neuts (auto) 12.5 H (2.0-8.3) x10*3/uL Absolute Nucleated RBC 0.000 (0.0-0.012) X10*3/uL Nucleated RBC % (auto) 0.0 (0.0-0.2) /100WBC Sodium 137 (135-145) mmol/L Potassium 3.9 (3.3-5.1) mmol/L Chloride 103 (96-108) mmol/L Carbon Dioxide 27 (22-29) mmol/L Anion Gap 11 L (12-20) BUN 18 H (9-16) mg/dL Creatinine 1.35 (0.5-1.4) mg/dL Estim Creat Clear Calc 71.6 Estimated GFR 54 Random Glucose 112 (60-115) mg/dL Calcium 9.0 (8.4-10.2) mg/dL Total Bilirubin 1.2 H (0.0-1.0) mg/dL AST 29 (5-37) U/L ALT 36 (0-40) U/L Alkaline Phosphatase 74 (39-117) U/L Total Protein 7.7 (6.5-8.0) g/dL Albumin 4.7 (3.5-5.0) g/dL Urine Color Yellow Urine Appearance Cloudy Urine pH 6.5 (5.0-9.0) Ur Specific [place] 1.015 (1.005-1.025) Urine Protein 100 (2+) H (Neg-Trace) mg/dL Urine Glucose (UA) Negative (Negative) mg/dL Urine Ketones Trace (Negative) mg/dL Urine Blood Large (3+) H (Negative) Urine Nitrite Positive H (Negative) Ur Leukocyte Esterase Large (3+) H (Negative) Urine RBC 11-20 H (0-2) /HPF Urine WBC >50 H (0-5) /HPF Urine WBC Clumps Present Ur Squamous Epith Cells 0-2 (0-2) /HPF Urine Bacteria Trace (None Seen) Hyaline Casts 0-2 (0-2) /LPF Independent Interpretation I performed an independent interpretation of an: CT Scan Radiology Impression Discussion of test interpretation with radiology: I have reviewed the radiologist's reading. Radiologist Impression: Abdominal aorta demonstrates no aneurysm or dissection. PELVIC VISCERA: Not enlarged. OSSEOUS STRUCTURES: Syndesmophyte formation at the sacroiliac joints. Facet joint hypertrophy at L5-S1, bilaterally. Multilevel small marginal osteophyte formation at L2-3 to L5-S1. Mild degenerative changes in the coxofemoral joints. No acute fracture or listhesis in the axial skeleton. Probable bony height and, right femur. CT/CT abdomen pelvis w IV con IMPRESSION: Probable mild enteritis and questionable internal hernia without intestinal obstruction pattern. Hepatosplenomegaly and hepatic steatosis. 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 Small fat-containing umbilical hernia. Diverticular disease, colon. Fleischner guidelines were followed. Electronically signed by: Adriel Castrejon MD 09/21/2025 01:38 PM EDT RP Independent Historian Clinical information obtained from an independent historian. History obtained from or confirmed by: Spouse Dr Lopez PCP Prescription Management I considered prescription management with: Pain Medication Critical Care Time Critical Care Time Critical Care Time: Yes Total Critical Care Time: 60 Attestation: Abdominal pain requiring IV Dilaudid low blood pressure Discharge Plan Discharge Clinical Impression: Acute UTI Abdominal pain Qualifiers: Abdominal location: generalized Qualified Code(s): R10.84 - Generalized abdominal pain Leukocytosis Qualifiers: Leukocytosis type: unspecified Qualified Code(s): D72.829 - Elevated white blood cell count, unspecified Patient Disposition: Admitted As Inpatient Interventions: Admission Worksheet (ED) Last Done: 09/21/25 15:44 Discharge Date/Time: 09/21/25 18:40
[2025-09-21 12:13] LABS: MANUAL DIFF FLAG NO
[2025-09-21 12:14] LABS: Hematocrit 40.7 % (42.0-52.0); Hemoglobin 14.0 g/dl (14.0-18.0); Imm Gran Abs Auto 0.07 X10*3/uL (0.00-0.03); Imm Gran Pct Auto 0.4 % (0.0-0.4); Lymphocytes Absolute Auto 1.7 X10*3/uL (1.2-4.9); Mean Corpuscular HGB Conc 34.4 g/dl (31.0-36.0); Mean Corpuscular Hemoglobin 31.7 pg (27.0-33.0); Mean Corpuscular Volume 92.3 fL (80.0-98.0); NRBC Abs Auto 0.000 X10*3/uL (0.0-0.012); NRBC Pct Auto 0.0 /100WBC (0.0-0.2); Platelet Count 221 X10*3/uL (160-400); Red Blood Count 4.41 X10*6/uL (4.60-5.80); White Blood Count 15.7 X10*3/uL (4.8-10.8)
[2025-09-21 12:30] LABS: Alanine Aminotransferase 36 U/L (0-40); Albumin Level 4.7 g/dL (3.5-5.0); Alkaline Phosphatase 74 U/L (39-117); Anion Gap 11 (12-20); Aspartate Amino Transferase 29 U/L (5-37); Blood Urea Nitrogen 18 mg/dL (9-16); Calcium 9.0 mg/dL (8.4-10.2); Carbon Dioxide 27 mmol/L (22-29); Chloride 103 mmol/L (96-108); Creatinine Clr Calc Pharmacy 71.6; Estimated Glomerular Filt Rate 54; Potassium 3.9 mmol/L (3.3-5.1); Sodium 137 mmol/L (135-145); Total Protein 7.7 g/dL (6.5-8.0)
[2025-09-21] MEDS: iohexoL 350 MG/ML 100 ML INFUS..BTL IV (13:18)
[2025-09-21 13:35] LABS: Appearance Urine Cloudy; Glucose Urine UA Negative (Negative); PH 6.5 (5.0-9.0); Specific Gravity - Urine 1.015 (1.005-1.025); UMIC TRIGGER UACC YES
--- NOTE | 2025-09-21 13:48 | PC.NURSE ---
Patient presents to ED with ABD pain rated 10/10 Pain started yesterday and has become worse Patient had diarrhea but it has stopped since this AM Patient nauseous but no vomiting ABD CT = Probable mild enteritis and questionable internal hernia without intestinal obstruction pattern at bedside Urine sample collected/ sent to lab IV 20G left AC Plan of care on going
[2025-09-21 14:01] LABS: UACC Culture Trigger YES
[2025-09-21] MEDS: Lactated Ringers 1,000 ML 999 ML IV (14:09)
--- OUTSIDE RECORDS SUMMARY | 2025-09-21 15:04 | XMS_ITS | Clinical Summary ---
Author Organization [facility] Address [address] [facility] [address] [place] [id number] Phone Care Team Providers Care Size Painter Name Role Phone Luke Almonte MD Primary Care Provider Allergies Active Allergy [...] VIRTUAL COLONOSCOPY 2008 POTASSIUM LEVEL 02/25/2024 02/24/2023, 11/03/2021, 04/12/2021, Additional history exists INFLUENZA VACCINE (#1) 2025 , 07/31/2023, 09/08/2022, Additional history exists PNEUMOCOCCAL VACCINES (50+ years) (3 of 3 - PCV20 or PCV21) 07/10/2025 07/10/2020, 02/01/2019 COVID-19 VACCINE (2024- season) 2025 08/28/2024, 10/03/2023, 12/05/2022, Additional history exists SCREENING FOR DIABETES 02/24/2026 02/24/2023 Adult Td,Tdap Booster 08/28/2034 08/28/2024, 023 RSV VACCINE (1 - 1-dose 75+ series) 2038 ZOSTER VACCINES Completed 09/28/2018, 07/30/2018 SMOKING STATUS SCREENING (Once After 26 Yrs) [...] EDT) SODIUM 140 133 - 146 mmol/L [facility] CHLORIDE 105 96 - 108 mmol/L [facility] POTASSIUM 3.8 3.3 - 5.1 mmol/L [facility] CO2 22 21 - 35 mmol/L [facility] BUN 19 6 - 19 mg/dL [facility] CREATININE 1.20 0.5 - 1.5 mg/dL [facility] GLUCOSE 84 70 - 99 mg/dL [facility] CALCIUM 9.3 8.4 - 10.3 mg/dL [facility] EGFR 70 >59 mL/min/1.7 3m2 [facility] Comment:Estimated glomerular filtration rate calculated using the CKD-EPI refit equation. ANION GAP 17 10 - 20 mmol/L [facility] Blood 02/24/2023 2:36 PM EDT 02/24/2023 2:39 PM EDT Ye Vergara MD LAB BLOOD ORDERABLES Final Re sult [address] [address] from Last 3 Months or Most Recently Relevant to Health Maintenance Insurance [employer] HMO POS EPO Member Subscriber Plan / Payer (Ef fective 1995-Present) Name:Steve Cabral Relation to Subscriber:Self Name:Steve Cabral Payer ID:[id number] (NAIC) Type:HMO Address: [address] HMO [facility] POS EPO HMO [facility] Address: [place] [id number] [facility] POS EPO Member Subscriber Plan / Payer (Ef fective 1995-Present) Name:Steve Cabral Relation to Subscriber:Self Name:Steve Cabral Payer ID:[id number] (NAIC) Type:HMO Address: [address] HMO O [place] [address] [place], [place] [address]O T HMO POS [place] [address] [place], [place] [address]O [employer] HMO POS EPO HMO Care Teams Size Painter Relationship Specialty Start Date End Date Luke Almonte MD [address] [place] [address] [place] [address] PCP - General Internal Medicine 08/03/20 Additional Source Comments The information contained in this document represents components of the legal health record. It is not the complete legal health record.[facility]
--- OUTSIDE RECORDS SUMMARY | 2025-09-21 15:06 | XMS_ITS | Encounter Summary ---
Author Organization [facility] Address [address] [facility] [address] [place] [address] Phone Care Team Providers Care Back Hand Name Role Phone Luke Almonte MD Primary Care Provider Encounter Details Date Type Department Care Team (Late st Contact Info) Description 02/24/2023 Procedure Pass [facility], Ct Scan - [address] [address] Social History Tobacco Use Types Packs/Day Years Used Date Smoking Tobacco: Never Smokeless Tobacco: Never Intimate Partner Violence Answer Date R ecorded [...] Orientation Straight 02/24/2023 1: 58 PM EDT documented as of this encounter Functional Status * Calculated C-SSRS Risk Score (Lifetime/Recent) Answer Date of Assessment Author No Risk Indicated 02/24/2023 1:58 PM EDT Lary Gardner, RN * [place] Suicide Severity Rating Scale (Screener/Recent Self-Report) Question Answer Date of Assessment Author 1. Wish to be (Past 1 Month) No 023 1:58 PM EDT Lary Trivedi RN 2. Non-Specific Active Suici cathie Thoughts (Past 1 Month) No 02/24/2023 1:58 PM EDT Lary Trivedi RN 6. Suicidal Behavior (Lifetime) No 3 1:58 PM EDT Lary Trivedi RN documented as of this encounter Plan of Treatment Not on file documented as of this encounter Visit Diagnoses Not on filedocumented in this encounter Additional Health Concerns Infection Onset Date Last Indicated Resolved Time CoV-Risk 01/27/2025 01/27/2025 02/07/2025 1:21 AM EDT documented as of this encounter Care Teams Back Hand Relationship Specialty Start Date End Date Luke Almonte MD [address] [place] [address] [place] [address] PCP - General Internal Medicine 08/03/20 documented as of this encounter Additional Source Comments The information contained in this document represents components of the legal health record. It is not the complete legal health record.[facility]
--- OUTSIDE RECORDS SUMMARY | 2025-09-21 15:06 | XMS_ITS | Patient Health Record ---
[facility] Address [address] [place] [address] Care Team Providers Care Charge Entry Clerk Name Role Phone Luke Almonte MD Primary Care Provider Anibal Dale Unavailable [phone] Allergies Allergen (clinical drug ingredient) Drug/Non Drug [...] JYOTI TH TWICE DAILY 90 DAY SUPPLY Oral; Duration: 90 Days Active Eletriptan Hydrobromide 40 MG 1 tablet Orally Once a day Active Verapamil HCl Active Centrum Adult Active Baby Aspirin Active SUMAtriptan Active Ondansetron 4 MG Oral; Duration: 90 Days Active Topamax 50 MG 1 tablet Orally Once a day; Duration: 30 day(s) 08/13/2023 Active Escitalopram Oxalate 10 MG Oral; Duration: 90 Days Active Potassium Chloride ER 8 MEQ TAKE 1 TABLE T BY MOUTH EVERY DAY WITH FOOD Oral; Duration: 90 Days Active Omeprazole 20 MG Oral; Duration: 90 Days Active Vitamin B 12 08/13/2023 [...] Date Coverage End Date [employer] [address] [place] [address] [id number] Steve Cabral Self - patient is the insured [facility] [address] [place] [address] [place] [id number] Honey Grimes Spouse - patient is the spouse of the insured Medical (General) History Medical History History ICD Code Back,Hip,and Knee pain Broken bones Cataracts covid-19 Diverticulosis Gout Migraines High blood pressure Reflux ( GERD) Joint implants/screws Sleep apnea Surgical History Surgery Date(Month/Year) Diverticulosis 04/23/2000 Bone Spurs 2015 Hospitalization History Reason Date(Month/Year[place] [facility] [place] to [place] 0 04/23-05/30/2000
--- OUTSIDE RECORDS SUMMARY | 2025-09-21 15:06 | XMS_ITS | Patient Health Record ---
Author Organization [facility] Address [address] [place] [address] Care Team Providers Care Promotional Model Name Role Phone Luke Almonte MD Primary [...] minutes before morning meal Orally Once a day; Duration: 30 day(s) Active Topamax 100 MG 1 tablet Orally Once a day; Duration: 30 day(s) Active Verapamil HCl ER 240 MG 1 tablet Orally Once a day; Duration: 30 day(s) Active MiraLax (colon prep) 17 GM/SCOOP mixed with Gatorade or Crystal Light Orally begin at 5:00 p.m. the day before the procedure; Duration: 1 day 10/16/2021 Active Vitamin D 50 MCG (1999 UT) 1 tablet Oral ly Once a day; Duration: 30 day(s) Active potassium 1 tab Oral; Duration : 14 days Active B12 Fast Dissolve 5000 [...] Status Risk Notes Problem Gastroesophageal reflux disease (375465375) Gastroesophageal reflux disease (K21.9) Active confirmed Problem Anemia (625439543) Anemia, unspecified type (D64.9) Active confirmed Problem Altered bowel function (44061482) Change in bowel function (R19.8) Active confirmed Problem Gastroesophageal reflux disease (345273629) Gastroesophageal reflux disease, unspecified whether esophagitis present (K21.9) Active confirmed Plan Of Treatment Future Test Test Name Order Date UPPER GI ENDOSCOPY 10/16/2021 COLONOSCOPY 10/16/2021 Insurance Providers Payer Name Payer Address Payer Phone Subscriber Number Group Number Insured Name Patient Relationship to Insured Coverage Start Date Coverage End Date [facility] [address] [place], [place] [phone] [id number] ARMANDO Self - patient is the insured Medical (General) History Medical History History ICD Code Hypertension Migraine headaches Gastroesophageal reflux disease Temporal arteritis Fatty liver Obstructive sleep apnea Colonoscopy 2016, ten-year followup ivan mmended, Dr. Phillips Diverticular disease Surgical History Surgery Date(Month/Year) Sigmoid resection 04/2001 Temporal artery biopsy 08/2020
--- OUTSIDE RECORDS SUMMARY | 2025-09-21 15:06 | XMS_ITS | Patient Health Record ---
Author Organization Luke Almonte MD Address [address] [place] [phone] Care Team Providers Care Sample Display Preparer Name Role Phone Luke Almonte Primary Care Provider Allergies Allergen (clinical drug ingredient) Drug/Non Drug Allergy documented on EMR Reaction Allergy Type Onset Date Status rizatriptan Rizatriptan Benzoate rash Drug Allergy Active morphine Morphine Sulfate cardiac arrest Drug Allergy Active lisinopril Lisinopril rash Drug Allergy Activ e Results Component Value Reference Range Notes PSA,Total (Free>4and<10) Reviewed date:10/31/2024 12:49:34 PM Interpretation: Performing Lab:[facility], [address] [place] [phone] Notes/Report: PSA,Total (Free>4and<10) 0.38 0.00-4.00 ng/mL A [...] Mercedes Alinity i Chemiluminescent Microparticle Immunoassay (CMIA) Complete Blood Count Auto Di ff Reviewed date:04/24/2025 02:09:51 PM Interpretation: Performing Lab:[facility], [address] [place] [phone] Notes/Report: White Blood Count 5.5 4.8-10.8 X10*3/uL [...] 0.0-0.2 /100WBC Neutrophils Absolute Auto 2.9 2.0-8.3 x10*3/uL Imm Gran Abs Auto 0.03 0.00-0.03 X10*3/uL Lymphocytes Absolute Auto 1.9 1.2-4.9 X10*3/uL Monocytes Absolute Auto 0.5 0.1-1.2 X10*3/uL Eosinophils Absolute Auto 0.2 0.0-0.4 X10*3/uL Basophils Absolute Auto 0.0 0.0-0.2 X10*3/uL NRBC Abs Auto 0.000 0.0-0.012 X10*3/uL Liver Panel Reviewed date:04/24/2025 11:50:23 AM Interpretation: Performing Lab:[facility], [address] [place] [phone] Notes/Report: Bilirubin Total 0.5 0.0-1.0 mg/dL Bilirubin Direct 0.2 0.0-0.5 mg/dL Aspartate Amino Transferase 40 5-37 U/L Alanine Aminotransferase 53 0-40 U/L Total Protein 7.0 6.5-8.0 g/dL Albumin Level 4.5 3.5-5.0 g/dL Alkaline Phosphatase 69 39-117 U/L Lipid Panel Reviewed date:04/24/2025 11:50:11 AM Interpretation: Performing Lab:[facility], [address] [place] [phone] Notes/Report: Triglycerides 106 <150 mg/dL Desirable Triglyceride: [...] (Free>4and<10) Reviewed date:04/24/2025 11:50:01 AM Interpretation: Performing Lab:[facility], [address] [place] [phone] Notes/Report: PSA,Total (Free>4and<10) 0.75 0.00-4.00 ng/mL A [...] Random Reviewed date:04/24/2025 12:50:53 PM Interpretation: Performing Lab:[address] [phone] Notes/Report: Creatinine Urine 258.98 Microalbumin Urine 12.0 Microalbum/Creatinine Ratio Ur 4.6 <30 ug/mg cr Albumin/Creatinine Ratio Reference Ranges: Normal: < 30 ug/mg creatinine Microalbuminuria: 30 - 300 ug/mg creatinine Clinical Albuminuria: > 300 ug/mg creatinine Hemoglobin A1c Reviewed date:04/24/2025 11:49:46 AM Interpretation: Performing Lab:[address] [phone] Notes/Report: Hemoglobin A1c % 5.2 <6.0 % [...] average glucose, using the formula of the F8P-Ybjkecx Average Glucose study (ADAG), Diabetes Care, Vol.31,#8, Jun. 2007 UA ClnCatch+Micro w/rflx Cul t Reviewed date:04/24/2025 04:31:47 PM Interpretation: Performing Lab:[address] [phone] Notes/Report: Urine, Clean Catch Color Urine Dark Yellow Appearance Urine Clear PH 6.5 5.0-9.0 Glucose Urine UA Negative Negative mg/dL Urine Blood Negative Negative Specific Conklin - Urine 1.025 1.005-1.025 Urine Protein Negative Neg-Trace mg/dL Urine Ketones Trace Negative mg/dL Nitrite Urine Negative Negative Leukocyte Esterase Urine Trace Negative RBC Urine 0-2 0-2 /HPF WBC Urine 0-5 0-5 /HPF Squamous Epithelial Cell Urine 0-2 0-2 /HPF Bacteria Urine None Seen None Seen Hyaline Casts Urine 0-2 0-2 /LPF Comprehensive [place]. Panel Fa Reviewed date:07/03/2025 06:01:40 PM Interpretation: Performing Lab:[facility], [address] [place] [phone] Notes/Report: Sodium 142 135-145 mmol/L Potassium 4.0 [...] 3.5-5.0 g/dL Alkaline Phosphatase 75 39-117 U/L Occult Blood, Stool, Guaiac Reviewed date:05/01/2025 04:02:03 PM Interpretation:Negative Performing Lab: Notes/Report: Negative Occult Blood, Stool, Guaiac Neg Comprehensive Met. Panel (No t yet reviewed by provider) Interpretation: Performing Lab:[facility], [address] [place] [phone] Notes/Report: Sodium 137 135-145 mmol/L Potassium 3.9 3.3-5.1 mmol/L Chloride 103 96-108 mmol/L Carbon Dioxide 27 22-29 mmol/L Anion Gap 11 12-20 Blood Urea Nitrogen 18 9-16 mg/dL Creatinine 1.35 0.5-1.4 mg/dL Creatinine Clr Calc Pharmacy 71.6 eGFR (calculated from the MDRD study equation) and eCrCl (calculated from the Cockcroft-Gault equation) are based on different parameters and may not yield comparable results. If eCrCl result is absurd, please check patient's height/weight. Estimated Glomerular Filt Rate 54 Chronic Kidney Disease: Estimated GFR < 60 mL/min/1.73m2 Severe Kidney Disease: Estimated GFR < 15 mL/min/1.73m2 Glucose Random 112 60-115 mg/dL Calcium 9.0 8.4-10.2 mg/dL Bilirubin Total 1.2 0.0-1.0 mg/dL Aspartate Amino Transferase 29 5-37 U/L Alanine Aminotransferase 36 0-40 U/L Total Protein 7.7 6.5-8.0 g/dL Albumin Level 4.7 3.5-5.0 g/dL Alkaline Phosphatase 74 39-117 U/L UA ClnCatch+Micro w/rflx Cul t (Not yet reviewed by provider) Interpretation: Performing Lab:[address] [phone] Notes/Report: [id number] Urine, Clean Catch Color Urine Yellow Appearance Urine Cloudy PH 6.5 5.0-9.0 Glucose Urine UA Negative Negative mg/dL Urine Blood Large (3+) Negative Specific Conklin - Urine 1.015 1.005-1.025 Urine Protein 100 (2+) Neg-Trace mg/dL Urine Ketones Trace Negative mg/dL Nitrite Urine Positive Negative Leukocyte Esterase Urine Large (3+) Negative RBC Urine 11-20 0-2 /HPF WBC Urine >50 0-5 /HPF WBC Clumps Urine Present Squamous Epithelial Cell Urine 0-2 0-2 /HPF Bacteria Urine Trace None Seen Hyaline Casts Urine 0-2 0-2 /LPF Complete Blood Count Auto Di ff Reviewed date:09/21/2025 12:18:46 PM Interpretation: Performing Lab:[address] [phone] Notes/Report: White Blood Count 15.7 4.8-10.8 X10*3/uL Red Blood Count 4.41 4.60-5.80 X10*6/uL Hemoglobin 14.0 14.0-18.0 g/dl Hematocrit 40.7 42.0-52.0 % Mean Corpuscular Volume 92.3 80.0-98.0 fL Mean Corpuscular Hemoglobin 31.7 27.0-33.0 pg Mean Corpuscular HGB Conc 34.4 31.0-36.0 g/dl Red Cell Distribution Width 13.5 11.0-16.0 % Platelet Count 221 160-400 X10*3/uL Mean Platelet Volume 8.5 9.4-12.4 fL Neutrophils Percent Auto 79.9 45-73 % Imm Gran Pct Auto 0.4 0.0-0.4 % Lymphocytes Percent Auto 10.6 20-40 % Monocytes Percent Auto 8.3 2-11 % Eosinophils Percent Auto 0.5 0-4 % Basophils Percent Auto 0.3 0-2 % NRBC Pct Auto 0.0 0.0-0.2 /100WBC Neutrophils Absolute Auto 12.5 2.0-8.3 x10*3/uL Imm Gran Abs Auto 0.07 0.00-0.03 X10*3/uL Lymphocytes Absolute Auto 1.7 1.2-4.9 X10*3/uL Monocytes Absolute Auto 1.3 0.1-1.2 X10*3/uL Eosinophils Absolute Auto 0.1 0.0-0.4 X10*3/uL Basophils Absolute Auto 0.1 0.0-0.2 X10*3/uL NRBC Abs Auto 0.000 0.0-0.012 X10*3/uL CT abdomen pelvis w con (Not yet reviewed by provider) Interpretation: Performing Lab: Notes/Report: [place] [id number] CT Scan Report Signed Patient: Steve Cabral III MR#: [id number] : 1965 Acct:[id number] Age/Sex: 60 / M ADM Date: 09/21/25 Loc: .ED Attending Dr: Ordering Physician: Donny Parra Date of Service: 09/21/25 Procedure(s): CT abdomen pelvis w IV con Accession Number(s): [id number] cc: Donny Parra; Luke Almonte MD Report Number: [id number]: Total DLP = 696.00 mGy-cm Reason for Exam: hypotensive, lower abdominal pain, perforation? EXAMINATION: CT ABDOMEN AND PELVIS WITH CONTRAST CLINICAL INFORMATION: Hypotension. Lower abdominal pain. COMPARISON: None available. TECHNIQUE: Multidetector volumetric images were obtained from the superior aspect of the liver through the pubic symphysis following administration 85 mL of Omnipaque 350 intravenous contrast. Sagittal and coronal reformatted images were obtained on the technologist's workstation. Oral contrast: No This CT examination was performed using dose optimization techniques as appropriate, variously including the following: *Automated exposure control *Adjustment of mA and/or kV according to patient size (this includes techniques or standardized protocols for targeted exams where dose is matched to indication/reason for exam; i.e. extremities or head) *Use of iterative reconstruction technique DLP: 696 mGy-cm FINDINGS: LUNG BASES: Patchy pulmonary groundglass, lung bases. LIVER, GALLBLADDER, AND BILIARY TREE: Liver measures 21 cm. Decreased enhancement pattern. No gross solid or cystic lesion. Main portal veins are patent. Intrahepatic portion of the IVC is patent. No pericholecystic fluid collection or gallbladder wall thickening. No gallbladder distention. No intrahepatic or extrahepatic biliary ductal dilatation. PANCREAS: No focal mass. No main pancreatic ductal dilatation. No peripancreatic fluid collection. SPLEEN: 13 cm. No solid or cystic lesion. ADRENAL GLANDS: No nodular lesions. KIDNEYS AND URETERS: No hydronephrosis. No gross enhancing renal mass. No gross nephrolithiasis. lobulations, bilaterally. Normal enhancement pattern of the renal cortex. The ureters are not dilated. BLADDER: Bladder wall thickening. No bladder distention. GASTROINTESTINAL TRACT: Gas and fluid-filled prominent ileal loops. Mild intestinal wall thickening. Terminal ileum is normal. Appendix is normal. There is a horizontal position of the cecum in the midline of the lower peritoneal cavity. Few scattered diverticula throughout the large intestine. No ascites. No pneumatosis intestinalis. No pneumoperitoneum. No peripheral enhancing fluid collection, peritoneal cavity.. ABDOMINAL WALL: Small fat-containing umbilical hernia. LYMPH NODES: Nonspecific prominent mesenteric and retroperitoneum. VASCULAR: There is a 22 mm maximal length segmental mixed plaque in the proximal to mid celiac trunk/proper hepatic artery measuring 14 mm in maximum diameter. Abdominal aorta demonstrates no aneurysm or dissection. PELVIC VISCERA: Not enlarged. OSSEOUS STRUCTURES: Syndesmophyte formation at the sacroiliac joints. Facet joint hypertrophy at L5-S1, bilaterally. Multilevel small marginal osteophyte formation at L2-3 to L5-S1. Mild degenerative changes in the coxofemoral joints. No acute fracture or listhesis in the axial skeleton. Probable bony height and, right femur. CT/CT abdomen pelvis w IV con IMPRESSION: Probable mild enteritis and questionable internal hernia without intestinal obstruction pattern. Hepatosplenomegaly and hepatic steatosis. 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 Small fat-containing umbilical hernia. Diverticular disease, colon. Fleischner guidelines were followed. Electronically signed by: Adriel Castrejon MD 09/21/2025 01:38 PM EDT RP Dictated By: Adriel Daniels MD Signed By: <Electronically signed by Adriel Crockett MD in [place]> 09/21/25 1338 DD/ 1308 TD/TT: 09/21/25 1320 Aerodynamicist: [place] [id number] CT Scan Report Signed Patient: Allen Cabral III MR#: [id number] : 1965 Acct:[id number] Age/Sex: 60 / M ADM Date: 09/21/25 Loc: HO.ED Attending Dr: Ordering Physician: Donny Parra Date of Service: 09/21/25 Procedure(s): CT abd omen pelvis w IV con Accession Number(s): [id number] cc: Donny Parra; Luke Almonte MD Report Number: [id number]: Total DLP = 696.00 mGy-cm Reason for Exam: hypotensive, lower abdominal pain, perforation? EXAMINATION: CT ABDOMEN AND PELVI S WITH CONTRAST CLINICAL INFORMATION: Hypotension. Lower abdominal pain. COMPARISON: None available. TECHNIQUE: Multidetector volume tric images were obtained from the superior aspect of the liver through the pubic symphysis following administration 85 mL of Omnipaque 350 intravenous contrast. Sagittal and coronal reformatted images were obtained on the technologist's workstation. Oral contrast: No This CT examination was performed using dose optimization techniques as appropriate, various ly including the following: *Automated exposure control *Adjustment of mA an d/or kV according to patient size (this includes techniques or standardized protocols for targeted exams where dose is matched to indication/reason for exam; i.e. extremities or head) *Use of iterative reconstruction technique DLP: 696 mGy-cm FINDINGS: LUNG BASES: Patchy pulmonary groundglass, lung bases. LIVER, GALLBLADDER, AND BILIARY TREE: Liver measures 21 cm. Decreased enhancement pattern. No gross solid or cystic lesion. Main portal veins are patent. Intrahep atic portion of the IVC is patent. No pericholecystic flui d collection or gallbladder wall thickening. No gallbladder distenti on. No intrahepatic or extrahepatic biliary ductal dilatation. PANCREAS: No focal m ass. No main pancreatic ductal dilatation. No peripancreatic fluid collection. SPLEEN: 13 cm. No so lid or cystic lesion. ADRENAL GLANDS: No nodular lesions. KIDNEYS AND URETERS: No hydronephrosis. No gross enhancing renal mass. No gross nephrolithi asis. lobulations, bilaterally. Normal enhancement pattern of the renal cortex. The ureters are not dilated. BLADDER: Bladder wall thicken ing. No bladder distention. GASTROINTESTINAL TRA CT: Gas and fluid-filled prominent ileal loops. Mild intestinal wall thickening. Terminal ileum is normal. Appendix is normal. There is a horizontal position of the cecum in the midline of the lower peritoneal cavity. Few scattered divert icula throughout the large intestine. No ascites. No pneumatosis intestinalis. No pneumoperitoneum. No peripheral enhancing fluid collection, peritoneal cavity.. ABDOMINAL WALL: Smal l fat-containing umbilical hernia. LYMPH NODES: Nonspec ific prominent mesenteric and retroperitoneum. VASCULAR: There is a 22 mm maximal length segmental mixed plaque in the proximal to mid kimmie ac trunk/proper hepatic artery measuring 14 mm in maximum diameter. Abdominal aorta demonstrates no aneurysm or dissection. PELVIC VISCERA: Not enlarged. OSSEOUS STRUCTURES: Syndesmophyte formation at the sacroiliac joints. Facet joint hypertro phy at L5-S1, bilaterally. Multilevel small marginal osteophyte formation at L2-3 to L5-S1. Mild degenerative ch anges in the coxofemoral joints. No acute fracture or listhesis in the axial skeleton. Probable bony height and, right femur. C T/CT abdomen pelvis w IV con IMPRESSION: Probable mild enteri tis and questionable internal hernia without intestinal obstructi on pattern. Hepatosplenomegaly a nd hepatic steatosis. 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 Small fat-containing umbilical hernia. Diverticular disease , colon. Fleischner guideline s were followed. Electronically yana d by: Adriel Castrejon MD 09/21/2025 01:38 PM EDT RP Dictated By: Adriel Armenta MD Signed By: <Electronically signed by Adriel Crockett MD in [place]> 09/21/25 1338 DD/ 1308 TD/TT: 09/21/25 1320 Aerodynamicist: Reason For Referral No Information Medications Medication SIG (Take, Route, Frequency, Duration) Notes Start Date End Date Status Triamcinolone Acetonide 0.1 % 1 application Externally Two times a Week for 10 days 08/23/2024 Active Eletriptan Hydrobromide 40 MG 1 tablet Orally Once a day for 1 day(s) Not-Taking valACYclovir HCl 1 GM TAKE 1 TABLET BY M OUTH TWICE DAILY FOR 5 DAYS for 5 Active Cyclobenzaprine HCl 10 MG TAKE 1/2 TABLE T BY MOUTH EVERY DAY AT BEDTIME for 60 Not-Taking Ondansetron 4 MG 1 tablet on the tong ue and allow to dissolve Orally Once a day for 30 day(s) Active Potassium Chloride ER 8 MEQ take 1 tablet by mouth every day with food Orally Once a day for 90 days Not-Taking Aspir-Low 81 MG 1 tablet Orally Once a day for 30 day(s) 03/16/2023 Active Topamax 50 MG 50mg mg PM Orally twice a day Not-Taking Triamcinolone Acetonide 0.5 % 1 application Externally Two times a Week for 30 days 08/15/2021 Active Naratriptan HCl 2.5 MG 1 tablet Orally O nce a day for 1 day(s) Not-Taking Vitamin B2 Active Diflucan 100 MG 1 tablet Orally twic e a day for 14 days 08/23/2024 Not-Taking Rizatriptan Benzoate 5 MG 1 tablet Orall y Once a day for 1 day(s) Not-Taking Diflucan 100 MG 1 tablet Orally marco y for 10 days 11/01/2024 Not-Taking Nurtec 75 MG 1 tablet on the tong ue and allow to dissolve Orally Active Escitalopram Oxalate 10 MG TAKE 1 TABLET BY MOUTH EVERY DAY IN THE MORNING for 90 Active SUMAtriptan Succinate 100 TAKE 1 TABLET BY MOUTH DAILY for 9 Not-Taking Ketoconazole 2 % 1 application Externally Once a day for 14 days 10/17/2024 Active Omeprazole 20 MG TAKE 1 CAPSULE ONCE DAILY for 90 Active Permethrin 5 % 1 application Externally Two times a Week for 7 days 08/27/2020 Not-Taking Verapamil HCl ER 240 MG TAKE 1 TABLET ON CE A DAY for 90 Active Relpax 40 MG TAKE 1 TABLET BY JYOTI TH EVERY DAY NEEDED for 12 Not-Taking ProAir RespiClick 108 (90 Base) MCG/ACT 2 puffs as needed Inhalation every 6 hrs for 25 Not-Taking Immunizations Vaccine Route Administration Date Status Comme nts Flu Vaccine IM Intramuscular 08/02/2012 Administered TDaP IM Intramuscular 03/25/2013 Administered Flu Vaccine IM Intramuscular 07/29/2013 Administered Flu Vaccine IM Intramuscular 09/29/2014 Administered Fluarix Quadrivalent IM Intramuscular 08/13/2015 [facility] Fluarix Quadrivalent Unknown 09/02/2016 Administered At work Fluarix Quadrivalent IM Intramuscular 08/28/2017 Adminenmanuel carr Shingrix IM Intramuscular 07/30/2018 Administered Shingrix IM Intramuscular 09/28/2018 Administered Fluarix Quadrivalent IM Intramuscular 10/05/2018 Leola carr Tetanus Unknown 03/25/2013 Administered PPSV23 (Pnemovax) IM Intramuscular 02/01/2019 Administered Fluarix Quadrivalent IM Intramuscular 09/01/2019 Leola carr Prevnar 13 IM Intramuscular 07/10/2020 Administered SARS-COV-2 Pfizer Unknown 03/26/2021 Administered SARS-COV-2 Pfizer Unknown 03/05/2021 Administered Fluarix Quadrivalent IM Intramuscular 08/15/2021 Adminenmanuel red SARS-COV-2 Pfizer Unknown 09/28/2021 Administered Fluarix Quadrivalent IM Intramuscular 09/08/2022 Leola carr TDaP Unknown 12/05/2022 Administered SARS-COV-2 Pfizer Unknown 12/05/2022 Administered Fluarix Quadrivalent IM Intramuscular 07/31/2023 Leola carr Fluarix Quadrivalent - 150 IM Intramuscular 08/23/2024 Adm inistered Social History Tobacco Use: Social History Observation [...] Problem Status W/U Status Risk Notes Problem 67135227 Hypokalemia (E87.6) Active confirmed Problem 690091333 Reflux esophagit is (K21.00) Active confirmed Problem Diverticulitis (82815002) Diverticulitis (K57.92) Active confirmed Problem 301221635 Anemia in other chronic diseases classified elsewhere (D63.8) Active confirmed Problem Celiac artery compression syndrome (2199370) 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 Problem 17795757 Nonalcoholic steatohepatitis (VÁZQUEZ) (K75.81) Active confirmed Problem 861909960 Gastroesophageal reflux disease without esophagitis (K21.9) Active confirmed Problem 66015004 Essential hypertension (I10) Active confirmed Problem 2005353 Prediabetes (R73.09) Active confirmed Problem 612986689 Migraine without aura and with status migrainosus, not intractable (G43.001) Active confirmed Problem 56142931 ZABRINA (obstructive sleep apnea) (G47.33) Active confirmed Problem 398635686 Mild intermitten t asthmatic bronchitis with acute exacerbation (J45.21) Active confirmed Problem 159910294 Diverticular disease (K57.90) Active confirmed Problem 63206350 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 Problem 071695969 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 Vital Signs Blood pressure diastolic 60 mm Hg 09/21/2025 Height 75 in 09/21/2025 Blood pressure systolic 82 mm Hg 09/21/2025 Weight 223 lbs 09/21/2025 BMI 27.87 kg/m2 09/21/2025 Encounters Encounter Location Date Provider Diagnosis Luke Almonte MD [address] [place] [id number] 10/31/2024 Luke Almonte Rising PSA level R97 .20 Luke Almonte MD [address] [place] [address] Drive [address] [place] [id number] 04/24/2025 Luke Almonte Blood tests for rout ine general physical examination Z00.00 ; Prediabetes R73.09 ; Nonalcoholic steatohepatitis (VÁZQUEZ) K75.81 and Anemia in other chronic diseases classified elsewhere D63.8 Luke Almonte MD [address] [place] [id number] 07/03/2025 Luke Almonte Elevated LFTs R79.89 Luke Almonte MD [address] [place] [id number] 09/21/2025 Luke Almonte Urinary retention R3 3.9 and Diverticulitis K57.92 Luke Almonte MD [address] [place] [id number] 10/17/2024 Luke Almonte Jock itch B35.6 Luke Almonte MD [address] [place] [id number] 11/01/2024 Luke Almonte Rising PSA level R97 .20 and Fungal infection B49 Luke Almonte MD [address] [place] [id number] 05/01/2025 Luke Almonte Annual physical exam Z00.00 ; Elevated LFTs R79.89 ; Prediabetes R73.09 ; Essential hypertension I10 ; Gastroesophageal reflux disease without esophagitis K21.9 ; Colon cancer screening Z12.11 and Depression screening Z13.31 Luke Almonte MD [address] [place] [id number] 11/01/2024 Luke Almonte Rising PSA level R97 .20 Luke Almonte MD [address] [place] [id number] 06/29/2025 Luke Almonte Assessments Encounter Date Diagnosis (ICD Code) Assessment Notes Treatment Notes Treatment Clinical Notes Section Notes 10/31/2024 Rising PSA level (ICD-10 - R97.20) 04/24/2025 Blood tests for routine general physical examination (ICD-10 - Z00.00) 07/03/2025 Elevated LFTs (ICD-10 - R79.89) 09/21/2025 Urinary retention (ICD-10 - R33.9) may be the cause of all his pain 09/21/2025 Diverticulitis (ICD-10 - K57.92) needs hopital send to er feels he can walk 10/17/2024 Jock itch (ICD-10 - B35.6) patient verbalized understanding of medication and directions for use 11/01/2024 Rising PSA level (ICD-10 - R97.20) has returned to normal. the psa is back to normal 11/01/2024 Fungal infection (ICD-10 - B49) is going to go back on diflucan and is going to see derm in one month. helps the itching but doesn't seem to do anything to the rash. does not have psoriasis elsewhere but maybe not a fungus 05/01/2025 Annual physical exam (ICD-10 - Z00.00) labs reviewed and discussed with patient 05/01/2025 Elevated LFTs (ICD-10 - R79.89) will continue to monitor, future labs pending 11/01/2024 Rising PSA level (ICD-10 - R97.20) 04/24/2025 Prediabetes (ICD-10 - R73.09) 05/01/2025 Prediabetes (ICD-10 - R73.09) stable, no need for medication atg this time 04/24/2025 Nonalcoholic steatohepatitis (VÁZQUEZ) (ICD-10 - K75.81) 05/01/2025 Essential hypertension (ICD-10 - I10) stabe will continue current regiment 04/24/2025 Anemia in other chronic diseases classified elsewhere (ICD-10 - D63.8) 05/01/2025 Gastroesophageal reflux disease without esophagitis (ICD-10 - K21.9) stable, will continue current regiment 05/01/2025 Colon cancer screening (ICD-10 - Z12.11) guaiac negative 05/01/2025 Depression screening (ICD-10 - Z13.31) Plan Of Treatment Pending Test Test Name Order Date Barium : Upper GI Series 2011 Electrocardiogram (EKG) 03/04/2013 MRI LUMBAR SPINE NO CONTRAST 11/27/2023 Comprehensive Met. Panel 09/21/2025 CT abdomen pelvis w con 09/21/2025 UA ClnCatch+Micro w/rflx Cult 09/21/2025 Next Appt Details Provider Name:Luke schulte, 10/30/2025 01:45:00 PM, [address] [place] [address], [address], [place], [place], [phone], Provider Name:Luke Schafer ier, 04/30/2026 07:15:00 AM, [address], [address], [place], [phone], Provider Name:Luke Schafer ier, 05/07/2026 01:00:00 PM, [address], [address], [place], [phone], Insurance Providers Payer Name Payer Address Payer Phone Subscriber Number Group Number Insured Name Patient Relationship to Insured Coverage Start Date Coverage End Date [employer] [facility] [address] [place] [phone] [id number] Steve Cabral Self - patient is the insured [address] [place] [address] [id number] Steve Cabral Self - patient is the insured Medications Administered Medication Instructions Date of Administration Dosage Notes B12 08/16/2021 1 mL B12 09/13/2021 1 mL Medical (General) History Medical History History ICD Code colonoscopy discussed 2013; colonoscopy 06/23/16 w/Dr. Phillips (repeat 10 yrs) colonoscopy 2020 with tubular adenoma, colonoscopy 11/12 pending path repeat in [address] milton Surgical History Surgery Date(Month/Year) divertticulits Left Superficial Temporal Artery Biopsy 07/2020
--- NOTE | 2025-09-21 16:01 | PM.IMHP ---
History of Present Illness Date of Service: 09/21/25 Attending physician on admission: Iveth Cannon Chief Complaint: abdominal pain This is a 60-year-old male who presents to the emergency department with abdominal pain. He was seen in his PCP's office in his blood pressure was noted to be low therefore he was sent to the emergency department for evaluation. Patient states he began having abdominal pain on Thursday night. On Thursday he was still not feeling well but went out to lunch with the son and had fried chicken which made him feel worse. He has continued to have nausea and lower abdominal pain yesterday he had an egg and cheese sandwich from [employer] which also made him feel worse. He has had no vomiting and no diarrhea. His pain is intermittent and crampy and similar to prior history of diverticulitis although primarily on the right side. He denies any fever but he did report having what he describes as the shakes yesterday. He also reports several days of difficulty urinating. In the emergency department he was noted to have leukocytosis 15.7, blood pressure was on the low side. CT scan of the abdomen showed concern for mild enteritis. Urinalysis was obtained and was positive for acute infection. He was treated with IV Zosyn on decision was made to admit him to the hospital for further management. Review of Systems Review of Systems: Yes all other systems are reviewed and are negative Constitutional: Constitutional: Reports chills and Denies fever(s) Cardiovascular: Cardiovascular: Denies chest pain, Denies palpitations and Denies dyspnea Respiratory: Respiratory: Denies cough and Denies dyspnea Gastrointestinal: Gastrointestinal: Reports abdominal pain, Reports constipation, Denies diarrhea, Reports nausea and Denies vomiting Genitourinary: Genitourinary: Reports oliguria Endocrine: Endocrine: Denies palpitations [facility] Medical History (Updated 09/21/25 @ 16:31 by BERNARDA Salinas) Diverticulitis GERD (gastroesophageal reflux disease) Anemia Surgical History History of colon surgery Social History Household Members: Family Housing: Homeless Patient Tobacco Use Status: Never used Tobacco Smoked in Last 30 Days: No Use of substances other than those prescribed or required for medical reasons: No Currently Displaying Signs/Symptoms of Drug Intoxication Withdrawal: No Advance Directives: No Advance Directives Information Provided: No Recently lost weight without trying: No Meds Allergies Allergy/AdvReac Type Severity Reaction Status Date / Time morphine Allergy Difficulty Verified 09/21/25 11:29 Breathing seafood Allergy Unknown Verified 09/21/25 11:29 Active Medications: Current Medications Acetaminophen (Acetaminophen 325 Mg Tablet) 650 mg PO Q6H PRN PRN Reason: Pain, Mild 1-3,fever,headache Calcium Carbonate (Calcium Carbonate 750 Mg Tab.Chew) 750 mg PO Q4H PRN PRN Reason: Heartburn Enoxaparin Sodium (Enoxaparin Sodium 40 Mg/0.4 Ml Syringe) 40 mg SUBCUT Q24H JANETH Hydromorphone HCl (Hydromorphone Hcl 0.5 Mg/0.5 Ml Syringe) 0.5 mg IVPUSH Q4H PRN; Protocol PRN Reason: Pain, Severe (Pain Scale 7-10) Lactated Ringer's (Lr) 1,000 mls @ 125 mls/hr IVCONT .Q8H JANETH Ceftriaxone Sodium 1 gm/ (Sodium Chloride) 50 mls @ 100 mls/hr IV Q24H JANETH Melatonin (Melatonin 3 Mg Tablet) 6 mg PO BEDTIME PRN PRN Reason: Insomnia Polyethylene Glycol (Polyethylene Glycol 3350 17 Gm Powd.Pack) 17 gm PO BID JANETH Sodium Chloride (0.9 % Sodium Chloride Flush 3 Ml Syringe) 3 ml IVFLUSH QSHIFT JANETH Home Medications ?Medication ?Instructions ?Recorded ?Confirmed ?Last Taken ?Type escitalopram oxalate 10 mg tablet 10 mg PO DAILY 04/14/23 09/21/25 09/21/25 History (Lexapro) omeprazole 20 mg capsule,delayed 20 mg PO DAILY 04/14/23 09/21/25 09/21/25 History release topiramate 50 mg tablet 50 mg PO BEDTIME 04/14/23 09/21/25 09/20/25 History verapamil 240 mg tablet,extended 240 mg PO BEDTIME 04/14/23 09/21/25 09/20/25 History release bupropion HCl 150 mg 24 hr tablet, 150 mg PO DAILY 09/21/25 09/21/25 09/21/25 History extended release Physical Exam Vital Signs and Narrative: Vital Signs: Last Vital Signs Temp 98.3 F 09/21/25 12:07 Pulse 66 09/21/25 12:07 Resp 12 09/21/25 15:15 BP 93/61 09/21/25 14:11 Pulse Ox 97 09/21/25 14:11 O2 Del Method Room Air 09/21/25 14:11 BMI result Body Mass Index 28.2 Const: General: cooperative, alert and awake Nutritional Appearance: average body habitus Orientation/consciousness: patient oriented x3 Resp: Effort & Inspection: normal respiratory effort, able to speak in complete sentences, no respiratory distress and no use of accessory muscles Cardio: Rate: regular rate GI: Other: mild RLQ tenderness; no guarding or rebound Inspection: No distended Palpation (GI): Soft to palpation Neuro: General: patient oriented x3, moves all extremities and CN's II-XI intact bilaterally Results Labs 09/22/25 06:13 09/22/25 06:13 Labs: Laboratory Results - last 24 hr 09/21/25 09/21/25 12:01 13:28 MCV 92.3 MCH 31.7 MCHC 34.4 RDW 13.5 Plt Count 221 MPV 8.5 L Immature Gran % (Auto) 0.4 Neut % (Auto) 79.9 H Lymph % (Auto) 10.6 L [place] % (Auto) 8.3 Eos % (Auto) 0.5 Baso % (Auto) 0.3 Lymph # (Auto) 1.7 [place] # (Auto) 1.3 H Eos # (Auto) 0.1 Baso # (Auto) 0.1 Abs Immat Gran (auto) 0.07 H Absolute Neuts (auto) 12.5 H Absolute Nucleated RBC 0.000 Nucleated RBC % (auto) 0.0 Anion Gap 11 L Estim Creat Clear Calc 71.6 Estimated GFR 54 Random Glucose 112 Calcium 9.0 Total Bilirubin 1.2 H AST 29 ALT 36 Alkaline Phosphatase 74 Total Protein 7.7 Albumin 4.7 Urine Color Yellow Urine Appearance Cloudy Urine pH 6.5 Ur Specific [place] 1.015 Urine Protein 100 (2+) H Urine Glucose (UA) Negative Urine Ketones Trace Urine Blood Large (3+) H Urine Nitrite Positive H Ur Leukocyte Esterase Large (3+) H Urine RBC 11-20 H Urine WBC >50 H Urine WBC Clumps Present Ur Squamous Epith Cells 0-2 Urine Bacteria Trace Hyaline Casts 0-2 Imaging Radiologist's Impressions: Impressions Abdomen/Pelvis CT 09/21/25 13:08 IMPRESSION: Probable mild enteritis and questionable internal hernia without intestinal obstruction pattern. Hepatosplenomegaly and hepatic steatosis. 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 Small fat-containing umbilical hernia. Diverticular disease, colon. Fleischner guidelines were followed. Electronically signed by: Adriel Castrejon MD 09/21/2025 01:38 PM EDT RP Assessment and Plan (1) Abdominal pain: Qualifiers: Abdominal location: generalized Qualified Code(s): R10.84 - Generalized abdominal pain Status: Acute Plan This is a 60-year-old male with a history of diverticulitis status post colon resection, hypertension, depression who presents to the emergency department with 5 day history of abdominal pain Abdominal pain CT scan showing evidence of enteritis but no vomiting or diarrhea Constipation likely contributing factor Received empiric antibiotics in the ED IV fluid, bowel regimen, symptomatic support 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 Has been seen outpatient by vascular surgery in did not feel that was contributing to abdominal pain at that time. If pain persists can consider vascular consultation UTI IV ceftriaxone Follow up results of urine culture mood Continue baseline meds HTN hold verapamil History of migraine Continue baseline medication DVT prophylaxis-Lovenox Code status-full code Med reconciliation pending at the time of admission Patient will likely require 2 midnight stay in the hospital for management of abdominal pain requiring IV narcotics, urinary tract infection requiring IV antibiotics Quality Stroke Does the patient have a stroke diagnosis?: No VTE Prior VTE?: No VTE Risk Level:: Medical - moderate - high VTE Device Contraindication: N/A - Device Ordered VTE Drug Contraindication: N/A - Med Ordered
[2025-09-21] MEDS: Lactated Ringers 1,000 ML 125 ML IVCONT (16:13)
--- NOTE | 2025-09-21 18:40 | PHA.MEDREC ---
Addendum entered by Bartolo Ambrosio RPh 09/21/25 18:57: Reviewed by [facility] Original Note: Pharmacy Consult ? Medication Reconciliation Pharmacy has completed the medication reconciliation. Patient had a list of medications on his phone. patient states he is not taking Zofran 4 mg Potassium chlo 25 mg. Patient had all his morning medications today.
[2025-09-22] MEDS: Lactated Ringers 1,000 ML 125 ML IVCONT ×2 (00:22→07:51)
[2025-09-22 03:43] VITALS: BP 113/81; PULSE 62; RESP 17; TEMP 36.6; O2SAT 93
[2025-09-22 06:25] LABS: MANUAL DIFF FLAG NO
[2025-09-22 06:42] LABS: Hematocrit 33.3 % (42.0-52.0); Hemoglobin 11.3 g/dl (14.0-18.0); Imm Gran Abs Auto 0.02 X10*3/uL (0.00-0.03); Imm Gran Pct Auto 0.3 % (0.0-0.4); Lymphocytes Absolute Auto 1.2 X10*3/uL (1.2-4.9); Mean Corpuscular HGB Conc 33.9 g/dl (31.0-36.0); Mean Corpuscular Hemoglobin 31.4 pg (27.0-33.0); Mean Corpuscular Volume 92.5 fL (80.0-98.0); NRBC Abs Auto 0.000 X10*3/uL (0.0-0.012); NRBC Pct Auto 0.0 /100WBC (0.0-0.2); Platelet Count 141 X10*3/uL (160-400); Red Blood Count 3.60 X10*6/uL (4.60-5.80); White Blood Count 6.6 X10*3/uL (4.8-10.8)
[2025-09-22 06:50] LABS: Anion Gap 9 (12-20); Blood Urea Nitrogen 12 mg/dL (9-16); Calcium 8.2 mg/dL (8.4-10.2); Carbon Dioxide 26 mmol/L (22-29); Chloride 107 mmol/L (96-108); Creatinine Clr Calc Pharmacy 117.1; Estimated Glomerular Filt Rate > 60; Potassium 3.8 mmol/L (3.3-5.1); Sodium 138 mmol/L (135-145)
[2025-09-22] MEDS: Flu Vacc TS2025-26(6mo up)/PF 0.5 ML SYRINGE IM (07:52)
[2025-09-22 08:00] VITALS: BP 117/79; PULSE 58; RESP 18; TEMP 36.4; O2SAT 96
[2025-09-22] MEDS: buPROPion HCl XL 150 MG TAB.ER.24H PO (09:02)
[2025-09-22] MEDS: VerapamiL HCL SR 240 MG TABLET.ER PO (09:03)
--- NOTE | 2025-09-22 11:56 | P.DS_ITS ---
DS: Providers Provider Date of Service: 09/22/25 Date of admission: 09/21/25 14:54 Date of discharge: 09/22/25 Primary care physician: Luke Almonte MD DS: Diagnosis Discharge Diagnosis (1) Abdominal pain: Status: Acute DS: Summary Hospital Course Hospital Course: Reason for Admission: 60-year-old male admitted for evaluation and management of abdominal pain, hypotension, and concern for urinary tract infection (UTI). Hospital Course: Mr. Cabral presented with a 5-day history of intermittent, crampy lower abdominal pain, nausea, and difficulty urinating. He denied vomiting or diarrhea. He has a history of diverticulitis (status post colon resection), GERD, anemia, and migraines. On arrival, he was hypotensive and had leukocytosis (WBC 15.7). Urinalysis (see attached image) was notable for pyuria (>50 WBC/hpf), positive nitrites, large leukocyte esterase, hematuria, and proteinuria, consistent with a complicated UTI. 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 He was initially treated with IV fluids and ceftriaxone. His creatinine improved from 1.35 (prerenal ARTIE) to 0.84 after hydration. He required IV narcotics for pain control. Digital rectal exam revealed an enlarged, painless prostate (not consistent with prostatitis). No evidence of bowel obstruction or perforation. No fever during admission. Given the clinical picture, the most likely diagnosis is a complicated UTI, possibly secondary to a passed kidney stone (nephrolithiasis), with superimposed mild enterocolitis that appears to be self-resolving. Urine culture is pending at the time of discharge. Discharge Medications: * Cephalexin 500 mg PO BID x 7 days * Metronidazole 500 mg PO BID x 7 days * Resume home medications as previously prescribed Allergies: * Morphine (difficulty breathing) * Seafood (reaction unknown) Follow-Up Recommendations: * Follow up with primary care provider (PCP) in 7 days for reassessment and review of urine culture results. * Return to the emergency department for fever, worsening abdominal pain, persistent vomiting, inability to urinate, or any other concerning symptoms. Summary of Hospital Course: * Complicated UTI, likely related to nephrolithiasis, treated with IV then oral antibiotics. * Mild enterocolitis, self-resolving. * Prerenal ARTIE, resolved with hydration. * No evidence of acute diverticulitis, bowel obstruction, or prostatitis. * Pain and urinary symptoms improved at discharge. Pending Results: * Urine culture/microbiology Status at Discharge Functional status at discharge: independent ambulation Overall status at discharge: patient is back to baseline Time Attestation Total time managing care of this patient today: 45 mintues. Discharge Coordination Time (in mins): 15 Quality: Safe Use of Opioids Does Pt have an Active Cancer Diagnosis on the Problem List?: No Quality: Stroke Does the patient have a stroke diagnosis?: No Physical Exam Exam: Exam: General: * Cooperative, alert, and awake. * Well-nourished, average body habitus. * Oriented to person, place, and time. * Not toxic-appearing. HEENT: * Normocephalic, atraumatic. * Normal external nose and facial exam. * Oral and palatal mucosa normal. Neck: * No lymphadenopathy or thyromegaly. * Normal visual inspection. Chest: * Normal inspection and palpation. Respiratory: * Normal respiratory effort. * Able to speak in complete sentences. * No respiratory distress or use of accessory muscles. * Lungs clear to auscultation bilaterally. Cardiovascular: * Regular rate and rhythm. * No murmurs, rubs, or gallops. * No jugular venous distension. Gastrointestinal: * Abdomen soft, non-distended. * No abdominal pain * No guarding or rebound. * Bowel sounds present. * No hepatosplenomegaly on exam. * Digital rectal exam: Enlarged, non-tender prostate (painless, inconsistent with prostatitis). Genitourinary: * Reports difficulty urinating and oliguria on admission. * No CVA tenderness. Skin: * No rashes or lesions. * Normal elasticity. Neurological: * Alert and oriented x3. * Moves all extremities. * Cranial nerves II?XI intact bilaterally. Vital Signs: Vital Signs: Last Vital Signs Temp 97.6 F 09/22/25 08:00 Pulse 58 09/22/25 08:00 Resp 18 09/22/25 08:00 BP 117/79 09/22/25 08:00 Pulse Ox 96 09/22/25 08:00 O2 Del Method Room Air 09/22/25 08:00 BMI result Body Mass Index 29.3 DS: Data Data Completed and Pending Labs on day of discharge: Laboratory Results - last 24 hr 09/21/25 09/21/25 09/22/25 12:01 13:28 06:13 WBC 15.7 H 6.6 RBC 4.41 L 3.60 L Hgb 14.0 11.3 L Hct 40.7 L 33.3 L MCV 92.3 92.5 MCH 31.7 31.4 MCHC 34.4 33.9 RDW 13.5 13.4 Plt Count 221 141 L D MPV 8.5 L 9.0 L Immature Gran % (Auto) 0.4 0.3 Neut % (Auto) 79.9 H 71.5 Lymph % (Auto) 10.6 L 18.1 L [place] % (Auto) 8.3 7.8 Eos % (Auto) 0.5 2.0 Baso % (Auto) 0.3 0.3 Lymph # (Auto) 1.7 1.2 [place] # (Auto) 1.3 H 0.5 Eos # (Auto) 0.1 0.1 Baso # (Auto) 0.1 0.0 Abs Immat Gran (auto) 0.07 H 0.02 Absolute Neuts (auto) 12.5 H 4.7 Absolute Nucleated RBC 0.000 0.000 Nucleated RBC % (auto) 0.0 0.0 Sodium 137 138 Potassium 3.9 3.8 Chloride 103 107 Carbon Dioxide 27 26 Anion Gap 11 L 9 L BUN 18 H 12 Creatinine 1.35 0.84 Estim Creat Clear Calc 71.6 117.1 Estimated GFR 54 > 60 Random Glucose 112 111 Calcium 9.0 8.2 L D Total Bilirubin 1.2 H AST 29 ALT 36 Alkaline Phosphatase 74 Total Protein 7.7 Albumin 4.7 Urine Color Yellow Urine Appearance Cloudy Urine pH 6.5 Ur Specific [place] 1.015 Urine Protein 100 (2+) H Urine Glucose (UA) Negative Urine Ketones Trace Urine Blood Large (3+) H Urine Nitrite Positive H Ur Leukocyte Esterase Large (3+) H Urine RBC 11-20 H Urine WBC >50 H Urine WBC Clumps Present Ur Squamous Epith Cells 0-2 Urine Bacteria Trace Hyaline Casts 0-2 Discharge Plan Discharge Anticipated Discharge Date/Time: 09/22/25 12:03 Patient Disposition: Home, Self-Care Discharge Diagnosis: Complicated urinary tract infection (UTI), likely secondary to nephrolithiasis Referrals: Luke Almonte MD [Primary Care Provider, Medical] - 1 Week Discharge Medications: New tamsulosin 0.4 mg Capsule 0.4 mg PO DAILY 14 Days Qty: 14 0RF cephalexin 500 mg Capsule 500 mg PO Q12H 7 Days Qty: 14 0RF metronidazole 500 mg Tablet 500 mg PO Q12H 7 Days Qty: 14 0RF Continued bupropion HCl 150 mg tablet extended release 24 hr 150 mg PO DAILY escitalopram oxalate [Lexapro] 10 mg tablet 10 mg PO DAILY Rx Instructions: 15mg daily omeprazole 20 mg capsule,delayed release(DR/EC) 20 mg PO DAILY topiramate 50 mg tablet 50 mg PO BEDTIME verapamil 240 mg tablet extended release 240 mg PO BEDTIME Discharge Orders: Discharge Order (Routine); Ordered 09/22/25 Ordered By: Iveth Cannon Diet: Advance to usual diet Activity on Discharge: As tolerated Stand Alone Forms: Patient Portal Discharge page Print Language: Urdu Care Plan Goals: As above Health Concerns: As above Plan of Treatment: Continue antibiotics until completion Continue tamsulosin 0.4 mg OD p.o. for 14 days - this can be continued based on PCP evaluation Follow up with PCP within 1 week of discharge Assessment: Hemodynamically stable, with resolution of abdominal pain.
--- NOTE | 2025-09-22 12:33 | MHC.CM.PN ---
Patient lives at home w/ . Independent w/ all care. Denies use of services or DME. PCP Luke Almonte MD Reports HCP is , Honey. Copy requested. DP: Medically cleared for dc home self care. at bedside to transport.
[2025-09-22 12:44] VITALS: BP 101/64; PULSE 66; RESP 18; TEMP 36.4; O2SAT 93
== END 2025-09-22 13:19 | disposition home or self-care (01) | DRG 690 ==
LOC: HO.ED 12:10 → HO.EDOVER 14:58 → HO.S3 15:38
PROVIDERS: Physician Assistant; Admitting Provider Physician Assistant Medical; Emergency Provider Emergency Medicine; PCP Internal Medicine; Visit Provider Hospitalist
DX: N39.0 Urinary tract infection, site not specified (principal); I10 Essential (primary) hypertension; G43.909 Migraine, unspecified, not intractable, without status migrainosus; F39 Unspecified mood [affective] disorder; Z23 Encounter for immunization; N20.0 Calculus of kidney; Z79.899 Other long term (current) drug therapy
CPT/HCPCS: 36415; 74177; 80048; 80053; 81001; 85025; 87086; 87088; 87186; 90656; 99285; J0696; J1171; J1650; J2543; J7120; Q9967

== ENCOUNTER → 2025-09-21 11:35 | Outpatient (BNV) | payer OTHER, SELFPAY | PROVIDERS: Emergency Provider Emergency Medicine; PCP Internal Medicine; Visit Provider Radiology Diagnostic Radiology | DX: K76.0 Fatty (change of) liver, not elsewhere classified (principal); K57.30 Diverticulosis of large intestine without perforation or abscess without bleeding; K42.9 Umbilical hernia without obstruction or gangrene; R16.2 Hepatomegaly with splenomegaly, not elsewhere classified | CPT/HCPCS: 74177 ==

== ENCOUNTER → 2025-09-21 14:54 | Outpatient (BNV) | payer OTHER, SELFPAY | PROVIDERS: Admitting Provider Physician Assistant Medical; Emergency Provider Emergency Medicine; PCP Internal Medicine; Visit Provider Physician Assistant Medical | DX: R10.84 Generalized abdominal pain (principal); N39.0 Urinary tract infection, site not specified | CPT/HCPCS: 99223; 99239 ==

== ENCOUNTER 2025-09-28 13:27 | Outpatient (REF) | payer OTHER, SELFPAY ==
--- OUTSIDE RECORDS SUMMARY | 2024-11-01 04:15 | XMS_ITS ---
Author Organization Luke Almonte MD Address [address] [place] [phone] Care Team Providers Care Cotton Factor Name Role Phone Luke Almonte Primary Care Provider [phone] Allergies Allergen (clinical drug ingredient) Drug/Non Drug [...] kg/m2 11/01/2024 weight is down 4 pounds [facility] [place] 10-17-24 Encounters Encounter Location Date Provider Diagnosis Luke Almonte MD [address] [place] [address] [place] [phone] 11/01/2024 Luke Almonte Rising PSA level R97.20 [...] Reason: Provider Name:Luke schulte, 04/30/2026 07:15:00 AM, [address] [place] [address], Suite [facility], [place], [place], [phone], Provider Name:Luke schulte, 05/07/2026 01:00:00 PM, [address] [place] [address], Suite [facility], [place], [place], [phone], Progress Notes * Steve CABRAL VDOB:[birth year] (59 yo M)Acc No.[id number]:11/01/2024 Progress Notes Patient: Michaela candieSylviae Rashmi Provider: Joel Almonte MD :1965 A ge:59 Y S ex:Male Date:11/01/2024 Address:[address] [place] [address], [facility] Subjective: * Chief Complaints: * 6 mo [...] Date: 01/02/2024 Generated for Kamilah solis/Bharati/Alistairsmitting on: 11/28/2024 04:18 PM EST History and Physical Notes * [...]
--- OUTSIDE RECORDS SUMMARY | 2024-11-01 05:27 | XMS_ITS ---
Author Organization Luke Almonte MD Address [address] [place] [phone] Care Team Providers Care Dental Surgery Doctor Name Role Phone Luke Almonte Primary Care Provider REASON FOR VISIT Resend Diflucan Medications Medication SIG (Take, Route, Fr equency, Duration) Notes Start Date End Date Status Diflucan 100 MG 1 tablet Orally daily for 10 days 11/01/2024 Active Encounters Encounter Location Date Provider Diagnosis Luke Almonte MD [address] [place] [phone] 11/01/2024 Luke Almonte Rising PSA level R97.20 Assessments Encounter Date Diagnosis (ICD Code) Assessment Notes Treatment Notes Treatment Clinical Notes Section Notes 11/01/2024 Rising PSA level (ICD-10 - R97.20) Plan Of Treatment Medication Medication Name Sig Start Date Stop Date Notes Diflucan 100 MG 1 tablet Orally daily for 10 days 11/01/20 24 Next Appt Details Provider Name:Luke Schafer ier, 04/30/2026 07:15:00 AM, [address], [address], [place], [phone], Provider Name:Luke Schafer ier, 05/07/2026 01:00:00 PM, [address] [facility], [address], [place], [phone], Progress Notes * Steve CABRAL VDOB:[birth year] (59 yo M)Acc No.[id number]:11/01/2024 Patient: Michaela Steve schreiber V :1965 A ge:59 Y S ex:Male Address:[address] [place] [address], [place] [address] * Refills Refill Diflucan Tablet, 100 MG, Orally, 10 Tablet, 1 tablet, daily, 10 days, Refills=1 * true * Date: Generated for Kamilah solis/Bharati/Krystinaitting on: 11/28/2024 04:20 PM EST
--- OUTSIDE RECORDS SUMMARY | 2025-09-22 08:35 | XMS_ITS ---
Author Organization Luke Almonte MD Address [address] [place] [phone] Care Team Providers Care Cigarette Vendor Name Role Phone Luke Almonte Primary Care Provider [phone] REASON FOR VISIT discharge Encounters Encounter Location Date Provider Diagnosis Luke Almonte MD [address] [place] [address] [place] [phone] 09/22/2025 Luke Almonte Plan Of Treatment Next Appt Details Provider Name:Luke schulte, 04/30/2026 07:15:00 AM, [address] [place] [address], [address], [phone], Provider Name:Luke schulte, 05/07/2026 01:00:00 PM, [address] [place] [address], [address], [phone], Progress Notes * Steve CABRAL VDOB:[birth year] (60 yo M)Acc No.[id number]:09/22/2025 Patient: Steve LIZAMA V :1965 A ge:60 Y S ex:Male Address:[address] [place] [address] [place] [address] * true * Date: Generated for Kamilah solis/Bharati/Alistairsmitting on: 11/28/2024 04:19 PM EST
--- OUTSIDE RECORDS SUMMARY | 2025-09-28 06:30 | XMS_ITS ---
Author Organization Luke Almonte MD Address [address] [place] [phone] Care Team Providers Care Remelter Name Role Phone Luke Almonte Primary Care Provider Allergies Allergen (clinical drug ingredient) Drug/Non Drug Allergy documented on EMR Reaction Allergy Type Onset Date Status rizatriptan Rizatriptan Benzoate rash Drug Allergy Active morphine Morphine Sulfate cardiac arrest Drug Allergy Active lisinopril Lisinopril rash Drug Allergy Activ e Results Component Value Reference Range Notes Urinalysis and Microscopic Reviewed date:09/28/2025 03:34:49 PM Interpretation: Performing Lab:[facility], [address] [place] [phone] Notes/Report: Color Urine Yellow Appearance Urine Clear PH 7.0 5.0-9.0 Glucose Urine UA Negative Negative mg/dL Urine Blood Negative Negative Specific Tell - Urine 1.010 1.005-1.025 Urine Protein Negative Neg-Trace mg/dL Urine Ketones Negative Negative mg/dL Nitrite Urine Negative Negative Leukocyte Esterase Urine Trace Negative RBC Urine 0-2 0-2 /HPF WBC Urine 0-5 0-5 /HPF Squamous Epithelial Cell Urine 0-2 0-2 /HPF Bacteria Urine None Seen None Seen Hyaline Casts Urine 0-2 0-2 /LPF REASON FOR VISIT PH/TCM Medications Medication SIG (Take, Route, Frequency, Duration) Notes Start Date End Date Status Eletriptan Hydrobromide 40 MG 1 tablet Orally Once a day for 1 day(s) Not-Taking ProAir RespiClick 108 (90 Base) MCG/ACT 2 puffs as needed Inhalation every 6 hrs for 25 Not-Taking Relpax 40 MG TAKE 1 TABLET BY JYOTI TH EVERY DAY NEEDED for 12 Not-Taking SUMAtriptan Succinate 100 TAKE 1 TABLET BY MOUTH DAILY for 9 Not-Taking Cyclobenzaprine HCl 10 MG TAKE 1/2 TABLE T BY MOUTH EVERY DAY AT BEDTIME for 60 Not-Taking Omeprazole 20 MG TAKE 1 CAPSULE ONCE DAILY for 90 Active Rizatriptan Benzoate 5 MG 1 tablet Orall y Once a day for 1 day(s) Not-Taking Naratriptan HCl 2.5 MG 1 tablet Orally O nce a day for 1 day(s) Not-Taking Topamax 50 MG 50mg mg PM Orally twice a day Not-Taking Potassium Chloride ER 8 MEQ take 1 tablet by mouth every day with food Orally Once a day for 90 days Not-Taking valACYclovir HCl 1 GM TAKE 1 TABLET BY M OUTH TWICE DAILY FOR 5 DAYS for 5 Active Triamcinolone Acetonide 0.1 % 1 application Externally Two times a Week for 10 days 08/23/2024 Active Ketoconazole 2 % 1 application Externally Once a day for 14 days 10/17/2024 Active Verapamil HCl ER 240 MG TAKE 1 TABLET ON CE A DAY for 90 Active Escitalopram Oxalate 10 MG TAKE 1 TABLET BY MOUTH EVERY DAY IN THE MORNING for 90 Active Nurtec 75 MG 1 tablet on the tong ue and allow to dissolve Orally Active Vitamin B2 Active Triamcinolone Acetonide 0.5 % 1 application Externally Two times a Week for 30 days 08/15/2021 Active Aspir-Low 81 MG 1 tablet Orally Once a day for 30 day(s) 03/16/2023 Active Ondansetron 4 MG 1 tablet on the tong ue and allow to dissolve Orally Once a day for 30 day(s) Active metroNIDAZOLE 500 MG 1 tablet Orally Thr ee times a day Active Cephalexin 500 MG 1 capsule Orally iman ry 6 hrs Active Tamsulosin HCl 0.4 MG 1 capsule Orally O nce a day Active Problems Problem Type SNOMED Code ICD Code Onset Dates Problem Status W/U Status Risk Notes Problem Kidney stone (09160351) Kidney stone (N20.0) Active confirmed Vital Signs Blood pressure systolic 122 mm Hg 09/28/20 25 Blood pressure diastolic 80 mm Hg 025 Height 75 in 09/28/2025 Weight 224 lbs 09/28/2025 BMI 28 kg/m2 09/28/2025 Encounters Encounter Location Date Provider Diagnosis Luke Almonte MD [address] [place] [phone] 09/28/2025 Luke Almonte Hematuria R31.9 and Kidney stone N20.0 Assessments Encounter Date Diagnosis (ICD Code) Assessment Notes Treatment Notes Treatment Clinical Notes Section Notes 09/28/2025 Hematuria (ICD-10 - R31.9) pending lab 09/28/2025 Kidney stone (ICD-10 - N20.0) seems likely that it was the cause of the entire visit. is doing better now Plan Of Treatment Treatment Notes Assessment Notes Hematuria pending lab Kidney stone seems likely that it was the cause of the entire visit. is doing better now Next Appt Details Follow Up: skip dec visit, R cele: Provider Name:Luke schulte, 04/30/2026 07:15:00 AM, [address] [place] [address], [place] [address], [place], [place], [phone], Provider Name:Luke schulte, 05/07/2026 01:00:00 PM, [address] [place] [address], [address], [phone], Progress Notes * Steve CABRAL VDOB:[birth year] (60 yo M)Acc No.[id number]:09/28/2025 Patient: Michaela Steve HOBSON V Provider: Joel Almonte MD :1965 A ge:60 Y S ex:Male Date:09/28/2025 Address:[address] [place] [address], [place], [id number] Subjective: * Chief Complaints: * 1 . PH/TCM. * HPI: S ymptom(s): patient is a 60 yo male here for transitional care management visit. Discharge summary has been reviewed and medications reconcilled. * ROS: G eneral/Constitutional: Denies C hills. D enies F atigue. D enies F ever. D enies H eadache. E NT: Denies S ore throat. R espiratory: Denies C ough. D enies S hortness of breath at rest. D enies S hortness of breath with exertion. G astrointestinal: Denies A bdominal pain. D enies D iarrhea. D enies N ausea. * Medical History: c olonoscopy discussed 2013; colonoscopy 06/23/16 w/Dr. Phillips (repeat 10 yrs) colonoscopy 2020 with tubular adenoma, colonoscopy 11/12 pending path repeat in 5 years, Dr milton. * Medications: T aking metroNIDAZOLE 500 MG Tablet 1 tablet Orally Three times a day , Taking Cephalexin 500 MG Capsule 1 capsule Orally every 6 hrs , Taking Tamsulosin HCl 0.4 MG Capsule 1 capsule Orally Once a day , Taking Nurtec 75 MG Tablet Disintegrating 1 [...] Externally Two times a Week , Taking Ketoconazole 2 % Cream 1 application Externally Once a day , Taking Verapamil HCl ER 240 MG Tablet Extended Release TAKE 1 TABLET ONCE A DAY , Taking Escitalopram Oxalate 10 MG Tablet TAKE 1 TABLET BY MOUTH EVERY DAY IN THE MORNING , Taking Omeprazole 20 MG Capsule Delayed Release TAKE 1 CAPSULE ONCE DAILY , Not-Taking/PRN Rizatriptan Benzoate 5 MG Tablet 1 tablet Orally Once a day , Not-Taking/PRN Naratriptan HCl 2.5 [...] tablet Orally Once a day , Not-Taking/PRN ProAir RespiClick 108 (90 Base) [...] Vitals: H t: 75, Wt: 224, BMI:28, BP:122/80, Wt-k.61. * Examination: G eneral Examination: GENERAL APPEARANCE: a lert, well hydrated, in no distress.? HEAD: n ormocephalic. SKIN: g ood turgor. HEART: r egular rate and rhythm, no murmurs, rubs, gallops.? LUNGS: n o wheezes, rales, rhonchi, good air movement, clear to auscultation bilaterally. ABDOMEN: s oft, nontender, nondistended. BACK: n o costovertebral angle tenderness. Assessment: * Assessment: 1. H ematuria - R31.9 (Primary) 2 . K idney stone - N20.0 Plan: * Treatment: 2. K jose horn Notes: seems likely that it was the cause of the entire visit. is doing better now * Follow Up: s oct visit * * The named appointment provid er may or may not be the originator of this progress note, and it is not deemed complete until electronically signed by the appointment provider. Sign off status: Pending * Provider: Joel Almonte MD Date: 11/28/2024 Generated for Kamilah solis/Bharati/Krystinaitting on: 11/28/2024 04:19 PM EST History and Physical Notes * HPI (History of Present Illness) Category Sub-Category Detail Notes Category Not es Symptom(s) patient is a 60 yo male here for transitional care management visit. Discharge summary has been reviewed and medications reconcilled Examination Category Sub-Category Detail Notes Category Not es General Examination GENERAL APPEARANCE: alert, w ell hydrated, in no distress HEAD: normocephalic HEART: regular rate and rhy thm, no murmurs, rubs, gallops LUNGS: no wheezes, rales, r honchi, good air movement, clear to auscultation bilaterally ABDOMEN: soft, nontender, non distended SKIN: good turgor BACK: no costovertebral an gle tenderness
[2025-09-28 13:41] LABS: Appearance Urine Clear; Glucose Urine UA Negative (Negative); PH 7.0 (5.0-9.0); Specific Gravity - Urine 1.010 (1.005-1.025); UMIC TRIGGER UA YES
--- OUTSIDE RECORDS SUMMARY | 2025-09-28 16:19 | XMS_ITS | Clinical Summary ---
Author Organization [facility] Address [address] [place] [phone] Phone Care Team Providers Care Lamination Operator Name Role Phone Luke Almonte MD [...] 02/25/2024 02/24/2023, 1103/2021, 04/12/2021, Additional history exists INFLUENZA VACCINE (#1) [...] Date/Time Associated Diagnosis Comments BASIC METABOLIC PANEL (BMP) STAT 02/24/2023 2:36 PM EDT from Last 3 Months or Most Recently Relevant to Health Maintenance Results * Basic metabolic panel (02/24/2023 2:36 PM EDT) SODIUM 140 133 - 146 mmol/L [facility] CHLORIDE 105 96 - 108 mmol/L [facility] POTASSIUM 3.8 3.3 - 5.1 mmol/L [facility] CO2 22 21 - 35 mmol/L [facility] BUN 19 6 - 19 mg/dL [facility] CREATININE 1.20 0.5 - 1.5 mg/dL [facility] GLUCOSE 84 70 - 99 mg/dL [facility] CALCIUM 9.3 8.4 - 10.3 mg/dL [facility] EGFR 70 >59 mL/min/1.7 3m2 [facility] Comment:Estimated glomerular filtration rate calculated using the CKD-EPI refit equation. ANION GAP 17 10 - 20 mmol/L [facility] Blood 02/24/2023 2:36 PM EDT 02/24/2023 2:39 PM EDT us Ye Vergara MD LAB BLOOD BKR ORDERABLES Sakshi l Result [facility] [address] [place] [address] from Last 3 Months or Most Recently Relevant to Health Maintenance Insurance [employer] HMO POS EPO Member Subscriber Plan / Payer (Ef fective 1995-Present) Name:Steve Cabral Relation to Subscriber:Self Name:Steve Cabral Payer ID:[id number] (NA) Type:HMO Address: [address] [facility] [place] [address] [facility] O POS EPO Member Subscriber Plan / Payer (Ef fective 1995-Present) Name:Steve Cabral Relation to Subscriber:Self Name:Steve Cabral Payer ID:[id number] (NA) Type:HMO Address: [address] HMO O [facility] [place] [address] [address] HMO [employer] HMO POS EPO HMO Care Teams Lamination Operator Relationship Specialty Start Date End Date Luke Almonte MD [address] [place] [address] [place] [address] PCP - General Internal Medicine 08/03/20 Additional Source Comments The information contained in this document represents components of the legal health record. It is not the complete legal health record.[facility]
--- OUTSIDE RECORDS SUMMARY | 2025-09-28 16:20 | XMS_ITS | Data Portability ---
Author Organization JORGE L - Laureano Leone Akbreann [facility], [facility] Address [address] [place] [address] Care Team Providers Care Case Supervisor Name Role Phone VICKI RIVERA Primary Care Provider Assessment No assessment recorded. Plan of Treatment Reminders Order Date Submit Date Provider Last Modified By Organization Details Last Modified Time Details Appointments None recorded. Lab ESR (erythrocyt e sedimentati on rate), blood 2023 024 DAISY [facility] (Centralized Electronic Ordering - All Locations), Patient Can Go To The Location Of Their Choice, 14:06:55 C reactive protein, QN, serum or plasma 2023 024 DAISY [facility] (Centralized Electronic Ordering - All Locations), Patient Can Go To The Location Of Their Choice, 14:06:55 CBC w/ auto diff 2023 024 DAISY [facility] (Centralized Electronic Ordering - All Locations), Patient Can Go To The Location Of Their Choice, 14:06:53 uric acid, serum or plasma 2023 024 DAISY [facility] (Centralized Electronic Ordering - All Locations), Patient Can Go To The Location Of Their Choice, 14:06:54 Referral None recorded. Procedures None recorded. Surgeries None recorded. Imaging MRI, knee, w/o contrast - mmt 2023 024 [facility] ([facility] [address] [place], [address], 13:42:34 Medication Orders None recorded. Patient TargetsNo targets recorded. Patient InstructionsNo instructions recorded. Reason for Referral None Reported. Results Created Date Observation Date Name Description Value Unit Range Abnormal Flag Note LastModifiedBy Organization Detail LastModifiedTime 03/28/20 24 03/29/2024 CBC WITH DIFFE RENTI AL/PL ATELE T WBC 5.9 x10e3 /uL 3.4-10 .8 Not Available [facility] ([facility]) [address] [facility], [place], [address], 03/29/2024 14:06:53 03/28/20 24 03/29/2024 CBC WITH DIFFE RENTI AL/PL ATELE T RBC 4.35 x10e6 /uL 4.14-5 .80 Not Available [facility] ([facility]) [address] [place], [address], 03/29/2024 14:06:53 03/28/20 24 03/29/2024 CBC WITH DIFFE RENTI AL/PL ATELE T hemoglobin 13.8 g/dL 13.0-1 7.7 Not Available [facility] ([facility]) [address] [place], [address], 03/29/2024 14:06:53 03/28/20 24 03/29/2024 CBC WITH DIFFE RENTI AL/PL ATELE T hematocrit 39.8 % 37.5-5 1.0 Not Available [facility] ([facility]) [address] [place], [address], 03/29/2024 14:06:53 03/28/20 24 03/29/2024 CBC WITH DIFFE RENTI AL/PL ATELE T MCV 92 fL 79-97 Not Available [facility] ([facility]) [address] [place], [address], 03/29/2024 14:06:53 03/28/20 24 03/29/2024 CBC WITH DIFFE RENTI AL/PL ATELE T MCH 31.7 pg 26.6-3 3.0 Not Available [facility] ([facility]) [address] [facility], [place], [address], 03/29/2024 14:06:53 03/28/20 24 03/29/2024 CBC WITH DIFFE RENTI AL/PL ATELE T MCHC 34.7 g/dL 31.5-3 5.7 Not Available [facility] ([facility]) [address] [facility], [place], [address], 03/29/2024 14:06:53 03/28/20 24 03/29/2024 CBC WITH DIFFE RENTI AL/PL ATELE T RDW 13.0 % 11.6-1 5.4 Not Available [facility] ([facility]) [address] [facility], [place], [address], 03/29/2024 14:06:53 03/28/20 24 03/29/2024 CBC WITH DIFFE RENTI AL/PL ATELE T platelets 235 x10e3 /uL 150-45 0 Not Available [facility] ([facility]) [address] [facility], [place], [address], 03/29/2024 14:06:53 03/28/20 24 03/29/2024 CBC WITH DIFFE RENTI AL/PL ATELE T neutrophils 57 % not estab. Not Available [facility] ([facility]) [address] [facility], [place], [address], 03/29/2024 14:06:53 03/28/20 24 03/29/2024 CBC WITH DIFFE RENTI AL/PL ATELE T lymphs 31 % not estab. Not Available [facility] ([facility]) [address] [facility], [place], [address], 03/29/2024 14:06:53 03/28/20 24 03/29/2024 CBC WITH DIFFE RENTI AL/PL ATELE T monocytes 7 % not estab. Not Available [facility] ([facility]) [address] [facility], [place], [address], 03/29/2024 14:06:53 03/28/20 24 03/29/2024 CBC WITH DIFFE RENTI AL/PL ATELE T eos 4 % not estab. Not Available [facility] ([facility]) [address] [facility], [place], [address], 03/29/2024 14:06:53 03/28/20 24 03/29/2024 CBC WITH DIFFE RENTI AL/PL ATELE T basos 1 % not estab. Not Available [facility] ([facility]) [address] [facility], [place], [address], 03/29/2024 14:06:53 03/28/20 24 03/29/2024 CBC WITH DIFFE RENTI AL/PL ATELE T immature cells FAMILY SERVICES SPECIALIST Not Available [facility] ([facility]) [address] [place], [address], 03/29/2024 14:06:53 03/28/20 24 03/29/2024 CBC WITH DIFFE RENTI AL/PL ATELE T neutrophils (absolute) 3.4 x10e3 /uL 1.4-7. 0 Not Available [facility] ([facility]) [address] [facility], [place], [address], 03/29/2024 14:06:53 03/28/20 24 03/29/2024 CBC WITH DIFFE RENTI AL/PL ATELE T lymphs (absolute) 1.8 x10e3 /uL 0.7-3. 1 Not Available [facility] ([facility]) [address] [place], [address], 03/29/2024 14:06:53 03/28/20 24 03/29/2024 CBC WITH DIFFE RENTI AL/PL ATELE T monocytes(ab solute) 0.4 x10e3 /uL 0.1-0. 9 Not Available [facility] ([facility]) [address] [facility], [place], [address], 03/29/2024 14:06:53 03/28/20 24 03/29/2024 CBC WITH DIFFE RENTI AL/PL ATELE T eos (absolute) 0.2 x10e3 /uL 0.0-0. 4 Not Available [facility] ([facility]) [address] [facility], [place], [address], 03/29/2024 14:06:53 03/28/20 24 03/29/2024 CBC WITH DIFFE RENTI AL/PL ATELE T baso (absolute) 0.0 x10e3 /uL 0.0-0. 2 Not Available [facility] ([facility]) [address] [facility], [place], [address], 03/29/2024 14:06:53 03/28/20 24 03/29/2024 CBC WITH DIFFE RENTI AL/PL ATELE T immature granulocytes 0 % not estab. Not Available [facility] ([facility]) [address] [facility], [place], [address], 03/29/2024 14:06:53 03/28/20 24 03/29/2024 CBC WITH DIFFE RENTI AL/PL ATELE T immature grans (abs) 0.0 x10e3 /uL 0.0-0. 1 Not Available [facility] ([facility]) [address] [facility], [place], [address], 03/29/2024 14:06:53 03/28/20 24 03/29/2024 CBC WITH DIFFE RENTI AL/PL ATELE T NRBC FAMILY SERVICES SPECIALIST Not Available [facility] ([facility]) [address] [facility], [place], [address], 03/29/2024 14:06:53 03/28/20 24 03/29/2024 CBC WITH DIFFE RENTI AL/PL ATELE T hematology comments: FAMILY SERVICES SPECIALIST Not Available [facility] ([facility]) [address] [facility], [place], [address], 03/29/2024 14:06:53 03/28/20 24 03/29/2024 URIC ACID uric acid 7.1 mg/dL 3.8-8. 4 Aki gusman t for gout patie nts: <6.0 Not Available [facility] ([facility]) [address] [facility], [place], [address], 03/29/2024 14:06:54 03/28/20 24 03/29/2024 SEDIM ENTAT ION RATE- WESTE RGREN sedimentatio n rate-westerg leo 7 mm/HR 0-30 Not Available [facility] ([facility]) [address] [facility], [place], [address], 03/29/2024 14:06:54 03/28/20 24 03/29/2024 C-DAVID CTIVE PROTE IN, QUANT C-reactive protein, quant 1 mg/L 0-10 Not Available [facility] ([facility]) [address] [facility], [place], [address], 03/29/2024 14:06:55 07/23/20 24 12/05/2023 imagi ng/di agnos tic resul t No observ ation record ed. [email or web address] Not Available 06/25 07:06:45 09/01/20 24 08/31/2024 MRI, knee, w/o contr ast [facility] Access ion Number : [id number] Patien t Name: Mahad Cabrala berkley Record Number : [id number] Date of : 1964 Date of Exam: 2023 Referr ing Physic rob: [facility] [address], [address] [place] [address] Exam: MR Knee (C-) CPT 98824 - Right Room Descri ption: [facility] 3.0T Histor y: Unspec ified news intern al derang ement of the right knee, questi on medial menisc al tear. The patien t report s modera te to severe medial daily pain for a few years, ellallbobby solis. Techni que: MRI of the right knee was perfor med withou t intrav enous contra st. Compar gurwinder: None. Findin gs: Joint effusi on: No joint effusi on is presen t. Hoffa' s fat pad is unrema rkable . There is a small Eaosn' s cyst with mild edema in the adjace nt soft tissue s, sugges ting partia l ruptur e. Menisc i: There is a radial ly orient ed tear in the intraoperative neuro tech ior third of the medial menisc us near its intraoperative neuro tech ior tibial attach ment with medial extrus ion of the body. Intram enisca l degene ration is seen in the remain marcos of the intraoperative neuro tech ior third and body of the medial menisc us which appear s to focall y extend to the inferi or articu lar surfac e in the periph angelito of the body. The latera l menisc us appear s intact . Tendon s and ligame nts: The ACL and PCL are intact . The collat eral ligame nts are unrema rkable . The ilioti bial band is unrema rkable . The extens or mechan ism appear s normal . Articu lar cartil age and bone: There is chondr al defect in the weight bearin g portio n of the medial femora l condyl e which measur es 0.9 x 1.3 cm high-g rade with a focal area of full-t hickne ss fissur ing. There is subcho ndral marrow edema deep to this region . There is adjace nt chondr al thinni ng in the weight bearin g portio n of the medial tibial platea u with subcho ndral marrow edema deep to a full-t hickne ss fissur e in the wu medial aspect . No focal chondr al defect s are seen in the latera l compar tment. Mild irregu lar chondr al thinni ng is seen at the patell a. There is irregu lar chondr al loss in the trochl ear groove . Impres bereket: 1. Radial tear in the intraoperative neuro tech ior tibial attach ment of the medial menisc us with medial extrus ion of the body. Intram enisca l degene ration is seen within the body and intraoperative neuro tech ior third of the medial menisc us with extens ion of the signal to the inferi or articu lar surfac e in the body, which may reflec t superi mposed degene rative tear. 2. Degene rative change as above with high-g rade chondr al defect s and adjace nt subcho ndral marrow edema in the medial compar tment. Electr onical ly Signed By: Lary Dale ra, MD [email or web address] [facility] ([facility]) [address], [place], [address], 09/02/2024 09:59:34 Result Notes Documentation Provider Name and Address Organization Details Recorded Time Mri, Knee, W/o Contrast : [facility] Accession Number: [id number] Patient Name: Steve Cabral Date of : 1965 Date of Exam: 08-31-2024 Referring Physician: Lui Batista [facility] ([facility]) [address], [address] [place] [address] Exam: MR Knee (C-) CPT 02388 - Right Room Description: [facility] 3.0T History: Unspecified internal derangement of the right knee, question medial meniscal tear. The patient reports moderate to severe medial daily pain for a few years, swelling. Technique: MRI of the right knee was performed without intravenous contrast. Comparison: None. Findings: Joint effusion: No joint effusion is present. Hoffa's fat pad is unremarkable. There is a small Eason's cyst with mild edema in the adjacent soft tissues, suggesting partial rupture. Menisci: There is a radially oriented tear in the posterior third of the medial meniscus near its posterior tibial attachment with medial extrusion of the body. Intrameniscal degeneration is seen in the remainder of the posterior third and body of the medial meniscus which appears to focally extend to the inferior articular surface in the periphery of the body. The lateral meniscus appears intact. Tendons and ligaments: The ACL and PCL are intact. The collateral ligaments are unremarkable. The iliotibial band is unremarkable. The extensor mechanism appears normal. Articular cartilage and bone: There is chondral defect in the weightbearing portion of the medial femoral condyle which measures 0.9 x 1.3 cm high-grade with a focal area of full-thickness fissuring. There is subchondral marrow edema deep to this region. There is adjacent chondral thinning in the weightbearing portion of the medial tibial plateau with subchondral marrow edema deep to a full-thickness fissure in the anteromedial aspect. No focal chondral defects are seen in the lateral compartment. Mild irregular chondral thinning is seen at the patella. There is irregular chondral loss in the trochlear groove. Impression: 1. Radial tear in the posterior tibial attachment of the medial meniscus with medial extrusion of the body. Intrameniscal degeneration is seen within the body and posterior third of the medial meniscus with extension of the signal to the inferior articular surface in the body, which may reflect superimposed degenerative tear. 2. Degenerative change as above with high-grade chondral defects and adjacent subchondral marrow edema in the medial compartment. Electronically Signed By: Lary Lopez [facility] 09/02/2024 09:59:34 Problems Name Problem SNOMED Code Status Onset Date Resolution Date Notes Provider Name and Address Organization Details Recorded Time Osteoarthri tis of knee 724388491 Active 2023 Lui Batista PA-C [address], [place], [address], [facility] 4 12:34:21 Acute tear of medial meniscus of right knee 4860408341008 9100 Active 2023 Lui Batista PA-C [address], [place], [address], [facility] 4 14:00:09 Derangement of right knee 9303255713598 9109 Active 2023 Lui Batista PA-C [address], [place], [address], [facility] 4 14:00:20 Problem Notes None recorded. Procedures Surgical History Date Name Laterality Status Provider Name and Address Organization Details Recorded Time 07/04/2024 Sports Knee 4&1 completed Nathaly Norman PA-C [address], [place], [address], [facility] 07/04/2024 14:31:13 03/28/2024 Sports Knee 4&1 completed Nathaly Norman PA-C [address], [place], [address], [facility] 03/28/2024 16:02:25 Imaging Results None recorded. Procedure Notes None recorded. Medical Equipment None Reported. Allergies Allergen ID Allergen Name Allergen Category Reaction Reaction Severity Criticality Documentation Date Start Date Code Code System Note Provider Name and Address Organization Details Recorded Time 353651 morphine sulfate medicatio n Not available Not available Not available 05/17/20242023 09055 RxNorm Not Available [facility] 4 09:09:05 448072 rizatript an medicatio n Not available Not available Not available 07/04/2024 79162 [facility] 4 14:22:44 86053 Shellfish (substanc e) food,medi cation Not available Not available Not available 01/25/20242023 49009 9006 SNOMED Not Available [facility] 4 09:09:05 57290 latex environme nt,medica tion Not available Not available Not available 01/25/20242021 65503 91 RxNorm Not Available [facility] 4 14:15:15 Medications Name Sig Start Date Stop Date Status Note LastModified by Organization Details LastModified Time fluconazole 100 mg tablet TAKE 1 TABLET BY MOUTH TWICE DAILY FOR 10 DAYS active Not Available Not Available No t Available fluconazole 150 mg tablet TAKE 1 TABLET BY MOUTH EVERY DAY FOR 7 DAYS 03/28 completed Not Available Not Available Not Available valacyclovi r 1 gram tablet TAKE 1 TABLET BY MOUTH TWICE DAILY FOR 5 DAYS active Not Available Not Available No t Available ondansetron HCl 4 mg tablet TAKE 1 TABLET BY MOUTH EVERY 8 HOURS NEEDED FOR NAUSEA OR VOMITING TAKE AT ONSET OF MIGRAINE HEADACHE active Not Available Not Available No t Available topiramate 25 mg tablet 1 TABLET BY MOUTH DAILY IN AM,X30 DAYS,TAKE WITH 50MG TAB FOR TOTAL MORNING DOSE OF 75MG 03/28 completed Not Available Not Available Not Available triamcinolo ne acetonide 0.1 % topical cream APPLY TOPICALLY TO THE AFFECTED AREA 2 TIMES A WEEK FOR 10 DAYS active Not Available Not Available No t Available potassium chloride ER 8 mEq tablet,exte nded release TAKE 1 TABLET BY MOUTH EVERY DAY WITH FOOD 03/28 completed Not Available Not Available Not Available pseudoephed rine-guaife nesin ER 80-700 mg tablet,exte nded release Percocet 5-325MG Tablet 1-2 Q 4-6 Hours Prn 03/28 completed Statu s: 'Curr ent'; Not Available Not Available Not Available dexamethaso ne 4 mg tablet 1 TABLET ORALLY 3 TIMES A DAY FOR 7 DAYS 03/28 completed Not Available Not Available Not Available indomethaci n 50 mg capsule TAKE 1 CAPSULE BY MOUTH 3 TIMES A DAY NEEDED FOR SEVERE PAIN 03/28 completed Not Available Not Available Not Available omeprazole 20 mg capsule,del ayed release TAKE 1 CAPSULE ONCE DAILY active Not Available Not Available No t Available verapamil ER (SR) 240 mg tablet,exte nded release TAKE 1 TABLET ONCE A DAY active Not Available Not Available No t Available rizatriptan 5 mg disintegrat ing tablet active Not Available Not Available N ot Available ketoconazol e 2 % topical cream active Not Available Not Available Not Available ondansetron 4 mg disintegrat ing tablet DISSOLVE 1 TABLET ON THE TONGUE EVERY 6 HOURS NEEDED FOR NAUSEA OR VOMITING active Not Available Not Available No t Available naratriptan 2.5 mg tablet 1 TABLET BY MOUTH ONCE, NEEDED FOR MIGRAINE HEADACHE, MAY REPEAT ONCE IN 4 HOURS IF NEEDED active Not Available Not Available No t Available amoxicillin 875 mg-potassiu m clavulanate 125 mg tablet TAKE 1 TABLET BY MOUTH TWICE DAILY FOR 7 DAYS 03/28 completed Not Available Not Available Not Available escitalopra m 10 mg tablet TAKE 1 TABLET BY MOUTH EVERY DAY IN THE MORNING active Not Available Not Available No t Available eletriptan 40 mg tablet 03/28 completed Not Available Not Available Not Available escitalopra m 5 mg tablet TAKE 1 TABLET (5 MG) BY MOUTH EVERY MORNING WITH THE 10 MG TABLET FOR A TOTAL DAILY DOSE OF 15 MG active Not Available Not Available No t Available topiramate 50 mg tablet TAKE 1 TABLET BY MOUTH TWICE DAILY active Not Available Not Available No t Available Vitamin B1 active Not Available Not Av ailable Not Available [facility] ODT 75 mg disintegrat ing tablet DISSOLVE 1 TABLET ON THE TONGUE EVERY 24 HOURS NEEDED FOR MIGRAINE HEADACHE. NOT TO EXCEED 75 MG IN 24 HOURS active Not Available Not Available No t Available aspirin 81 mg capsule Take 1 capsule every day by oral route. active Not Available Not Available No t Available Vitals Date Recorded Body height Body mass index (BMI) Body weight Provider Name and Address Organization Details Last Updated DateTime 03/28/2024 187.96 cm 28.2 kg/m2 13162.32 g JOSE MANUEL MYAH [facility] 03/28/2024 15:49:24 Date Recorded Body height Body mass index (BMI) Body weight Provider Name and Address Organization Details Last Updated DateTime 07/04/2024 187.96 cm 28.2 kg/m2 85346.32 g TANK NASIR [facility] 07/04/2024 14:22:19 Date Recorded Body height Body mass index (BMI) Body weight Provider Name and Address Organization Details Last Updated DateTime 08/18/2024 187.96 cm 28.2 kg/m2 19307.32 g Lui Batista PA-C [address], [address] 08/18/2024 13:51:00 Date Recorded Body height Body mass index (BMI) Body weight Provider Name and Address Organization Details Last Updated DateTime 11/21/2024 187.96 cm 28.2 kg/m2 46580.32 g Lui Batista PA-C [address], [address], [facility] 11/21/2024 10:44:47 Social History None recorded. Functional Status None recorded. Mental Status None recorded. Family History Nothing Reported. Medical History Condition Response Allergies/Hayfever N Coronary Artery Disease N Anxiety/Depression N Breathing or lung disorders N Emphysema N Nerve Disorders N Thyroid Problems N COPD N Pacemaker N Anemia N Kidney/Bladder Problems N Vascular Disease N Heart Trouble N Heart Attack ([place]) N Gastrointestinal Disease N Cholesterol N Diabetes N Autoimmune disease N Bleeding Disorder N Orthotics N Arthritis N Seizures/Epilepsy N Blood Clot N AIDS/HIV N Congestive Heart Failure (CHF) N Acid Reflux (GERD) N Cancer N Stroke N Asthma N Peripheral Vascular Disease N Sleep Apnea Y Hepatitis N Heart Disease N Rheumatoid Arthritis N Arrhythmia N Pulmonary Embolism N Headaches Y Fibromyalgia N Hypertension Y Osteoporosis N Past Encounters Encounter ID Performer Location Encounter Start Date Encounter Closed Date Diagnosis/Indication Diagnosis SNOMED-CT Code Diagnosis ICD10 Code Diagnosis IMO Codes Diagnosis Note [id number] ARCELIA Rasmussen [address] [place] [address] 03/28/2024 15:40:42 03/28/2024 16:10:21 Pain of right knee joint 1564368543 66468 M25.561 Arthritis of right knee joint 2573382963 501277 M13.871 [id number] ARCELIA Rasmussen [address] [place] [address] 07/04/2024 14:11:10 08/01/2024 16:19:40 Osteoarthritis of right knee joint 1245996932 43817 M17.11 [id number] ARCELIA Junior [address] [place] [address] 08/18/2024 13:44:14 08/31/2024 09:42:47 Osteoarthritis of knee 001304774 M17.9 Acute tear of medial meniscus of right knee 9580613434 3388473 S83.241A Derangemen t of right knee 5586756836 0782589 M23.91 [id number] ARCELIA Junior [address] [place] [address] 11/21/2024 10:02:02 12/08/2024 10:10:53 Osteoarthritis of knee 365519761 M17.9 Health Concerns Section Related Observation LastModified by Organization Detai ls LastModified Time None Recorded Concern Status LastModified by Organization Details LastModified Time None Recorded Advance Directives Directive None Recorded Payers Insurance Date Sequence Insurance Name Policy Number Policy Hall Covered Member ID Hall Member ID Guarantor Name 12/08/2024 1 [employer] (POS II) [id number] Steve Cabral [id number] Steve Cabral 12/08/[address] [place] [address] [id number] Steve Cabral [id number] Steve Cabral Notes Date Note Type Note Provider Name and Address Organization Details Recorded Time 03/28/2024 text/html I am seeing the patient today under the supervision of Dr. Nguyễn who was available but who did not see the patient. HPI: Patient presents today regarding their right knee. They have had difficulty up and down stairs sitting standing. Problems ambulating. Wqst-blc-vlrcqoi medications are helping somewhat but not significantly. Pain is constant aching sometimes sharp pain with giving out sensations. Past family, medical, social history and review of systems has been reviewed, updated and is located in the patient s chart. Examination: The patient is well appearing and in no apparent distress. Alert and oriented x3. Gait is symmetric. Examination of the right knee reveals no evidence of any edema, erythema, or warmth. No Deformity. Range of motion of the knee limited with mild discomfort at the end ranges. Mild effusion. Does have some tenderness to palpation about the joint line. Negative Neil s . Calf is supple and nontender. Neurovascularly intact distally. Impression: right Knee osteoarthritis, possible gouty arthropathy Plan: We discussed the role of conservative management including medications, physical therapy, injection and bracing. At this point the patient wishes to proceed with injection today. See procedure documentation. They will follow up with us as scheduled. All questions answered Nathaly Norman PA-C [address] [place] [address] [address] [facility], [place], [address], [facility] - [facility] 03/28/2024 16:03:20 07/04/2024 text/html I am seeing the patient today under the supervision of Dr. Nguyễn who was available but who did not see the patient. HPI: Patient presents today regarding their right knee. They have had difficulty up and down stairs sitting standing. Problems ambulating. Rjcm-rim-yxamata medications are helping somewhat but not significantly. Pain is constant aching sometimes sharp pain with giving out sensations. Past family, medical, social history and review of systems has been reviewed, updated and is located in the patient s chart. Examination: The patient is well appearing and in no apparent distress. Alert and oriented x3. Gait is symmetric. Examination of the right knee reveals no evidence of any edema, erythema, or warmth. No Deformity. Range of motion of the knee limited with mild discomfort at the end ranges. Mild effusion. Does have some tenderness to palpation about the joint line. Negative Neil s . Calf is supple and nontender. Neurovascularly intact distally. Impression: right Knee osteoarthritis Plan: We discussed the role of conservative management including medications, physical therapy, injection and bracing. At this point the patient wishes to proceed with injection today. See procedure documentation. They will follow up with us as scheduled. All questions answered Nathaly Norman PA-C [address] [facility] [address], [place], [address], [place] - [facility] 07/04/2024 14:31:31 08/18/2024 text/html I am seeing the patient today under the supervision of Dr. Kendall who was available but who did not see the patient. HPI: Steve is a 59-year-old male who comes to the office today with chief complaint of right knee pain. He has been managed conservatively in the past with occasional corticosteroid injections, previous injection June 2024 by my colleague. He reports recurrent pain with twisting and swelling. No prio MRI documented PMH/PSH/MEDS/ALL/FMH/ SOC HX/ ROS: All reviewed in detail per my medical intake sheet General Exam: Vitals signs as noted below, antalgic gait noted. Mental Status: Alert and oriented x3. Normal insight, affect, and grooming. PAINT ROLLER WINDER: Gross motor coordination is intact. No spasticity or clonus noted. Extremities: Calves are soft and nontender. Skin on lower extremities is intact. Palpable pedal pulses bilaterally. Orthopedic Exam: Examination of the right knee demonstrates restricted range of motion good anterior-posterior stability no laxity valgus or varus stressing. Exquisite medial and the lateral joint line tenderness with patellofemoral crepitus noted, 1+ effusion, 4/5 strength. X-rays report: 4 views ordered and independently reviewed previously at [facility] of the right knee findings include: good joint space preservation both compartment and PF joint. Assessment: Right knee PF Arthrosis with MMT Plan: The patient was thoroughly counseled today regarding their knee condition, its natural history, and the treatment options both nonoperative and operative. I have recommended we undergo MRI scan for further evaluation for suspected medial meniscus tear. Reemphasized the benefits of physical therapy, stressed the importance of compliance regarding home exercises. X BODY speech recognition tape cutter software was used to create portions of this document. An attempt at proofreading has been made to minimize errors. Please call for corrections yeah okay good I think visually seeing you tomorrow we can check it Lui Batista PA-C [address] [facility] [address], [place], [address], [facility] 08/18/2024 14:02:46 11/21/2024 text/html I am seeing the patient today under the supervision of Dr. Ga who was available but who did not see the patient. HPI: Steve is a 59-year-old male who comes to the office today with chief complaint of right knee pain. He has been managed conservatively in the past with occasional corticosteroid injections, previous injection June 2024 by my colleague. He reports recurrent pain with twisting and swelling. Clinical Update: Patient returns today for follow-up evaluation regarding his right knee. He was managed conservatively and she underwent MRI scan returns today to review those results. MRI Findings: Independently reviewed today of the right knee findings include degenerative medial meniscus tear with extrusion of the meniscus, full-thickness chondral loss in the medial joint space, intact ACL PCL. Orthopedic Exam: Examination of the right knee demonstrates restricted range of motion good anterior-posterior stability no laxity valgus or varus stressing. Exquisite medial and the lateral joint line tenderness with patellofemoral crepitus noted, 1+ effusion, 4/5 strength. X-rays report: 4 views ordered and independently reviewed previously at [facility] of the right knee findings include: good joint space preservation both compartment and PF joint. Assessment: Right knee PF Arthrosis with MMT, medial compartment DJD Plan: The patient was thoroughly counseled today regarding their knee condition, its natural history, and the treatment options both nonoperative and operative. Reemphasized the benefits of physical therapy, stressed the importance of compliance regarding home exercises. At this time based on his symptoms he which are minimal he will modify his activities if symptoms escalate he will contact us to discuss options including the role of repeat corticosteroid injection and possible viscosupplementation. X BODY speech recognition tape cutter software was used to create portions of this document. An attempt at proofreading has been made to minimize errors. Please call for corrections yeah okay good I think visually seeing you tomorrow we can check it Lui Batista PA-C [address] [facility] [address], [place], [address], [facility] 11/21/2024 11:08:01
--- OUTSIDE RECORDS SUMMARY | 2025-09-28 16:20 | XMS_ITS | Encounter Summary ---
Author Organization [facility] Address [address] [facility] [address] [place] [address] Phone Care Team Providers Care Custodian Name Role Phone Luke Almonte MD Primary Care Provider Encounter Details Date Type Department Care Team (Late st Contact Info) Description 02/24/2023 Procedure Pass [facility], Ct Scan - [address] [address] Social History Tobacco Use Types Packs/Day Years [...] 1:58 PM EDT Lary Gardner, RN * [place] Suicide Severity Rating Scale (Screener/Recent Self-Report) Question [...] documented as of this encounter Care Teams Custodian Relationship Specialty Start Date End Date Luke Almonte MD [address] [place] [address] [place] [address] PCP - General Internal Medicine 08/03/20 documented as of this encounter Additional Source Comments The information contained in this document represents components of the legal health record. It is not the complete legal health record.[facility]
--- OUTSIDE RECORDS SUMMARY | 2025-09-28 16:21 | XMS_ITS | Patient Health Record ---
Author Organization [facility] Address [address] [place] [address] Care Team Providers Care Tare Weigher Name Role Phone Luke Almonte MD Primary [...] Status Risk Notes Problem Gastroesophageal reflux disease (328000247) Gastroesophageal reflux disease (K21.9) Active confirmed Problem Anemia (033401596) Anemia, unspecified type (D64.9) Active confirmed Problem Altered bowel function (73951842) Change in bowel function (R19.8) Active confirmed Problem Gastroesophageal reflux disease (053692826) Gastroesophageal reflux disease, unspecified whether esophagitis present (K21.9) Active confirmed Plan Of Treatment Future Test Test Name Order Date UPPER GI ENDOSCOPY 10/16/2021 COLONOSCOPY 10/16/2021 Insurance Providers Payer Name Payer Address Payer Phone Subscriber Number Group Number Insured Name Patient Relationship to Insured Coverage Start Date Coverage End Date [facility] [address] [place], [place] [id number] ARMANDO Self - patient is the insured Medical (General) History Medical History History ICD Code Hypertension Migraine headaches Gastroesophageal reflux disease Temporal arteritis Fatty liver Obstructive sleep apnea Colonoscopy 2016, ten-year followup ivan mmended, Dr. Phillips Diverticular disease Surgical History Surgery Date(Month/Year) Sigmoid resection 04/2001 Temporal artery biopsy 08/2020
== END 2025-09-28 13:28 | disposition home or self-care (01) ==
LOC: HO.LNP 13:27
PROVIDERS: Visit Provider Internal Medicine
DX: R31.9 Hematuria, unspecified (principal)
CPT/HCPCS: 81001

== ENCOUNTER 2025-10-12 15:31 | Outpatient (REF) | payer OTHER, SELFPAY ==
--- OUTSIDE RECORDS SUMMARY | 2024-11-01 04:15 | XMS_ITS ---
Author Organization Luke Almonte MD Address [address] [place] [phone] Care Team Providers Care Deployment Specialist Name Role Phone Luke Almonte Primary Care Provider [phone] Allergies Allergen (clinical drug ingredient) Drug/Non Drug Allergy documented on EMR Reaction Allergy Type Onset Date Status rizatriptan Rizatriptan Benzoate rash Drug Allergy Active morphine Morphine Sulfate cardiac arrest Drug Allergy Active lisinopril Lisinopril rash Drug Allergy Activ e REASON FOR VISIT 6 mo f/u Medications Medication SIG (Take, Route, Frequency, Duration) Notes Start Date End Date Status ProAir RespiClick 108 (90 Base) MCG/ACT 2 puffs as needed Inhalation every 6 hrs for 25 Not-Taking Diflucan 100 MG 1 tablet Orally for 10 days 11/01/2024 Active Relpax 40 MG TAKE 1 TABLET BY EVERY DAY NEEDED for 12 Not-Taking SUMAtriptan Succinate 100 TAKE 1 TABLET BY MOUTH DAILY for 9 Not-Taking Permethrin 5 % 1 application Externally Two times a Week for 7 days 08/27/2020 Not-Taking Naratriptan HCl 2.5 MG 1 tablet [...] DAILY FOR 5 DAYS for 5 Active Triamcinolone Acetonide 0.1 % 1 application Externally Two times a Week for 10 days 08/23/2024 Active Omeprazole 20 MG TAKE 1 CAPSULE ONCE DAILY for 90 Active Ketoconazole 2 % 1 application Externally Once a day for 14 days 10/17/2024 Active Diflucan 100 MG 1 tablet Orally twic e a day for 14 days 08/23/2024 Not-Taking Lexapro 10 MG TAKE 1 TABLET ONCE DAILY Orally Active Triamcinolone Acetonide 0.5 % 1 application Externally Two times a Week for 30 days 08/15/2021 Active Aspir-Low 81 MG 1 tablet Orally Once a day for 30 day(s) 03/16/2023 Active Verapamil HCl ER 240 MG take 1 tablet on ce a day Orally Once a day for 90 days Active Ondansetron 4 MG 1 tablet on the tong ue and allow to dissolve Orally Once a day for 30 day(s) Active Nurtec 75 MG 1 tablet on the tong ue and allow to dissolve Orally Active Rizatriptan Benzoate 5 MG 1 tablet Orall y Once a day for 1 day(s) Active Vitamin B2 Active Vital Signs Blood pressure systolic 92 mm Hg 11/01/20 24 Blood pressure diastolic 66 mm Hg 024 Height 75 in 11/01/2024 Weight 223 lbs 11/01/2024 BMI 27.87 kg/m2 11/01/2024 weight is down 4 pounds [facility] [place] 10-17-24 Encounters Encounter Location Date Provider Diagnosis Luke Almonte MD [address] [place] [address] [place] [phone] 11/01/2024 Luke Almonte Rising PSA level R97.20 and Fungal infection B49 Assessments Encounter Date Diagnosis (ICD Code) Assessment Notes Treatment Notes Treatment Clinical Notes Section Notes 11/01/2024 Rising PSA level (ICD-10 - R97.20) has returned to normal. the psa is back to normal 11/01/2024 Fungal infection (ICD-10 - B49) is going to go back on diflucan and is going to see derm in one month. helps the itching but doesn't seem to do anything to the rash. does not have psoriasis elsewhere but maybe not a fungus Plan Of Treatment Medication Medication Name Sig Start Date Stop Date Notes Diflucan 100 MG 1 tablet Orally for 10 days 11/01/2024 Treatment Notes Assessment Notes Rising PSA level has returned to norm al. the psa is back to normal Fungal infection is going to go back on diflucan and is going to see derm in one month. helps the itching but doesn't seem to do anything to the rash. does not have psoriasis elsewhere but maybe not a fungus Next Appt Details Follow Up: 6 Months complete , Reason: Provider Name:Luke schulte, 04/30/2026 07:15:00 AM, [address] [place] [address], Suite [facility], [place], [place], [phone], Provider Name:Luke schulte, 05/07/2026 01:00:00 PM, [address] [place] [address], Suite [facility], [place], [place], [phone], Progress Notes * Steve CABRAL VDOB:[birth year] (59 yo M)Acc No.[id number]:11/01/2024 Progress Notes Patient: Michaela candieSylviae Rashmi Provider: Joel Almonte MD :1965 A ge:59 Y S ex:Male Date:11/01/2024 Address:[address] [place] [address], [facility] Subjective: * Chief Complaints: * 6 mo f/u * HPI: S ymptom(s): patient is a 59 yo male here for 6 month follow up visit, took the fluticizone for 2 weeks. doesn't make the rash for away. * ROS: G eneral/Constitutional: Denies C hills. D enies F atigue. D enies F ever. D enies H eadache. E NT: Patient denies d ecreased sense of smell , any loss of taste , sore throat. D enies S ore throat. R espiratory: Denies Memo ough. D enies S hortness of breath at rest. D enies S hortness of breath with exertion. G astrointestinal: Denies D iarrhea. D enies N ausea. M usculoskeletal: Patient denies m [...] BY MOUTH TWICE DAILY FOR 5 DAYS Triamcinolone Acetonide 0.1 % Cream 1 application Externally Two times a WeekOmeprazole 20 MG Capsule Delayed Release TAKE 1 CAPSULE ONCE DAILY Ketoconazole 2 % Cream 1 application Externally Once a dayTaking Nurtec 75 MG Tablet Disintegrating 1 tablet [...] MOUTH TWICE DAILY FOR 5 DAYS Taking Triamcinolone Acetonide 0.1 % Cream 1 application Externally Two times a WeekTaking Omeprazole 20 MG Capsule Delayed Release TAKE 1 CAPSULE ONCE DAILY Taking Ketoconazole 2 % Cream 1 application Externally Once a dayNot-Taking/PRNDiflucan 100 MG Tablet 1 tablet Orally twice a dayNaratriptan HCl 2.5 MG Tablet 1 tablet Orally [...] List reviewed and reconciled with the patientNot-Taking/PRN Diflucan 100 MG Tablet 1 tablet Orally twice a dayNot-Taking/PRN Naratriptan HCl 2.5 MG Tablet 1 tablet Orally Once a dayNot-Taking/PRN Topamax 50 MG Tablet 50mg mg PM Orally twice a dayNot- Taking/PRN Potassium Chloride ER 8 MEQ Tablet Extended [...] Verified] Objective: * Vitals: H t: 75, Wt:223, BMI:27.87, BP:92/66 weight is down 4 pounds since 10-17-24. * P ast Orders: L ab:PSA,Total (Free>4and<10) (Order Date - 10/31/2024) (Collection Date - 10/31/2024) Value Reference Range PSA,Total (Free>4and<10) 0.38 0.00-4.00 - ng/ mL * Examination: G eneral Examination: GENERAL APPEARANCE: a lert, well hydrated, in no distress.? G enitourinary - Male: SCROTUM: w ith a rash in inguinal crease. ? Assessment: * Assessment: 1. R eduardo PSA level - R97.20 (Primary) 2 . F ungal infection - B49 Plan: * Treatment: 2. F ungal infection Notes: is going to go back on diflucan and is going to see derm in one month. helps the itching but doesn't seem to do anything to the rash. does not have psoriasis elsewhere but maybe not a fungus? * Procedure Codes: * Follow Up: 6 Months complete * * Sign off status: Completed true * Provider: Joel Almonte MD Date: 01/02/2024 Generated for Kamilah solis/Bharati/Alistairsmitting on: 12/12/2024 08:37 PM EST History and Physical Notes * HPI (History of Present Illness) Category Sub-Category Detail Notes Category Not es Symptom(s) patient is a 59 yo male here for 6 month follow up visit, took the fluticizone for 2 weeks. doesn't make the rash for away Examination Category Sub-Category Detail Notes Category Not es Genitourinary - Male SCROTUM: with a rash in inguinal crease General Examination GENERAL APPEARANCE: alert, w ell hydrated, in no distress
--- OUTSIDE RECORDS SUMMARY | 2024-11-01 05:27 | XMS_ITS ---
Author Organization Luke Almonte MD Address [address] [place] [phone] Care Team Providers Care Survey Supervisor Name Role Phone Luke Almonte Primary Care Provider [phone] REASON FOR VISIT Resend Diflucan Medications Medication SIG (Take, Route, Fr equency, Duration) Notes Start Date End Date Status Diflucan 100 MG 1 tablet Orally daily for 10 days 11/01/2024 Active Encounters Encounter Location Date Provider Diagnosis Luke Almonte MD [address] [place] [phone] 11/01/2024 Luke Almonte Rising PSA level R97.20 [...] Name:Luke Schafer ier, 04/30/2026 07:15:00 AM, [address], [address], [place], [phone], Provider Name:Luke Schafer ier, 05/07/2026 01:00:00 PM, [address] [facility], [address], [place], [phone], Progress Notes * Steve CABRAL VDOB:[birth year] (59 yo M)Acc No.[id number]:11/01/2024 Patient: Michaela Steve schreiber V :1965 A ge:59 Y S ex:Male Address:[address] [place] [address], [place] [address] * Refills Refill Diflucan Tablet, 100 MG, Orally, 10 Tablet, 1 tablet, daily, 10 days, Refills=1 * true * Date: Generated for Kamilah solis/Bharati/Alistairsmitting on: 12/12/2024 08:39 PM EST
--- OUTSIDE RECORDS SUMMARY | 2025-04-24 02:30 | XMS_ITS ---
Author Organization Luke Almonte MD Address [address] [place] [id number] Care Team Providers Care Purchase Price Analyst Name Role Phone Luke Almonte Primary Care Provider [phone] Results Component Value Reference Range Notes Complete Blood Count Auto Di ff Reviewed date:04/24/2025 02:09:51 PM Interpretation: Performing Lab:[facility], [address] [place] [phone] Notes/Report: White Blood Count 5.5 4.8-10.8 X10*3/uL Red Blood Count 4.62 4.60-5.80 X10*6/uL Hemoglobin 14.7 14.0-18.0 g/dl Hematocrit 41.7 42.0-52.0 % Mean Corpuscular Volume 90.3 80.0-98.0 fL Mean Corpuscular Hemoglobin 31.8 27.0-33.0 pg Mean Corpuscular HGB Conc 35.3 31.0-36.0 g/dl Red Cell Distribution Width 14.0 11.0-16.0 % Platelet Count 209 160-400 X10*3/uL Mean Platelet Volume 9.1 9.4-12.4 fL Neutrophils Percent Auto 52.7 45-73 % Imm Gran Pct Auto 0.5 0.0-0.4 % Lymphocytes Percent Auto 34.4 20-40 % Monocytes Percent Auto 8.2 2-11 % Eosinophils Percent Auto 3.5 0-4 % Basophils Percent Auto 0.7 0-2 % NRBC Pct Auto 0.0 0.0-0.2 /100WBC Neutrophils Absolute Auto 2.9 2.0-8.3 x10*3/u L Imm Gran Abs Auto 0.03 0.00-0.03 X10*3/uL Lymphocytes Absolute Auto 1.9 1.2-4.9 X10*3/u L Monocytes Absolute Auto 0.5 0.1-1.2 X10*3/uL Eosinophils Absolute Auto 0.2 0.0-0.4 X10*3/u L Basophils Absolute Auto 0.0 0.0-0.2 X10*3/uL NRBC Abs Auto 0.000 0.0-0.012 X10*3/uL Liver Panel Reviewed date:04/24/2025 11:50:23 AM Interpretation: Performing Lab:[facility], [address] [place] [phone] Notes/Report: Bilirubin Total 0.5 0.0-1.0 mg/dL Bilirubin Direct 0.2 0.0-0.5 mg/dL Aspartate Amino Transferase 40 5-37 U/L Alanine Aminotransferase 53 0-40 U/L Total Protein 7.0 6.5-8.0 g/dL Albumin Level 4.5 3.5-5.0 g/dL Alkaline Phosphatase 69 39-117 U/L Lipid Panel Reviewed date:04/24/2025 11:50:11 AM Interpretation: Performing Lab:[facility], [address] [place] [phone] Notes/Report: Triglycerides 106 <150 mg/dL Desirable Triglyceride: less than 150 mg/dL Borderline High Triglyceride 150-199 mg/dL High Triglyceride: 200-499 mg/dL Very High Triglyceride: greater than or equal to 5OO mg/dL Cholesterol 115 <200 mg/dL Desirable Cholesterol: less than 200 mg/dL Borderline High Cholesterol: 200-239 mg/dL High Cholesterol: greater than 239 mg/dL LDL Cholesterol Calculated 64 <100 mg/dL Desirable LDL: less than 100 mg/dL Near Optimal/Above Optimal LDL: 110-129 mg/dL Borderline High LDL: 130-159 mg/dL High LDL: 160-189 mg/dL Very High LDL: greater than or equal to 190 mg/dL HDL Cholesterol 30 >40 mg/dL Desirable HDL: greater than 40 mg/dL Note: This HDL assay may give artificially low results in patients with liver disease. PSA,Total (Free>4and<10) Reviewed date:04/24/2025 11:50:01 AM Interpretation: Performing Lab:[address] [phone] Notes/Report: PSA,Total (Free>4and<10) 0.75 0.00-4.00 ng/mL A Free PSA was not [...] Chemiluminescent Microparticle Immunoassay (CMIA) Microalbumin, Random Reviewed date:04/24/2025 12:50:53 PM Interpretation: Performing Lab:[address] [phone] Notes/Report: Creatinine Urine 258.98 Microalbumin Urine 12.0 Microalbum/Creatinine Ratio Ur 4.6 <30 ug/mg cr Albumin/Creatinine Ratio Reference Ranges: Normal: < 30 ug/mg creatinine Microalbuminuria: 30 - 300 ug/mg creatinine Clinical Albuminuria: > 300 ug/mg creatinine Hemoglobin A1c Reviewed date:04/24/2025 11:49:46 AM Interpretation: Performing Lab:[address] [place] [address] Notes/Report: Hemoglobin A1c % 5.2 <6.0 % [...] average glucose, using the formula of the L1I-Lslpayp Average Glucose study (ADAG), Diabetes Care, Vol.31,#8, 2007 UA ClnCatch+Micro w/rflx Cul t Reviewed date:04/24/2025 04:31:47 PM Interpretation: Performing Lab:[facility], [address] [place] [phone] Notes/Report: Urine, Clean Catch Color Urine Dark Yellow Appearance Urine Clear PH 6.5 5.0-9.0 Glucose Urine UA Negative Negative mg/dL Urine Blood Negative Negative Specific Gomer - Urine 1.025 1.005-1.025 Urine Protein Negative Neg-Trace mg/dL Urine Ketones Trace Negative mg/dL Nitrite Urine Negative Negative Leukocyte Esterase Urine Trace Negative RBC Urine 0-2 0-2 /HPF WBC Urine 0-5 0-5 /HPF Squamous Epithelial Cell Urine 0-2 0-2 /HPF Bacteria Urine None Seen None Seen Hyaline Casts Urine 0-2 0-2 /LPF REASON FOR VISIT FASTING LABS Encounters Encounter Location Date Provider Diagnosis Luke Almonte MD [address] [place] [address] [address] [place], [place] [phone] 04/24/2025 Luke Almonte Blood tests for rout ine general physical examination Z00.00 ; Prediabetes R73.09 ; Nonalcoholic steatohepatitis (VÁZQUEZ) K75.81 and Anemia in other chronic diseases classified elsewhere D63.8 Assessments Encounter Date Diagnosis (ICD Code) Assessment Notes Treatment Notes Treatment Clinical Notes Section Notes 04/24/2025 Blood tests for routine general physical examination (ICD-10 - Z00.00) 04/24/2025 Prediabetes (ICD-10 - R73.09) 04/24/2025 Nonalcoholic steatohepatitis (VÁZQUEZ) (ICD-10 - K75.81) 04/24/2025 Anemia in other chronic diseases classified elsewhere (ICD-10 - D63.8) Plan Of Treatment Next Appt Details Provider Name:Luke Schafer ier, 04/30/2026 07:15:00 AM, [address], [address], [place], [phone], Provider Name:Luke Schafer ier, 05/07/2026 01:00:00 PM, [address], [address], [place], [place], [phone], Progress Notes * Steve CABRAL VDOB:[birth year] (60 yo M)Acc No.[id number]:04/24/2025 Progress Note Patient: Steve LIZAMA V Provider: Joel Almonte MD :1965 A ge:59 Y S ex:Male Date:04/24/2025 Address:[address] [place], [place] [id number] Subjective: * Chief Complaints: * 1 . FASTING LABS. * Medical History: Objective: * Vitals: Assessment: * Assessment: 1. B lood tests for routine general physical examination - Z00.00 (Primary) 2 .?Prediabetes - R73.09 3 . N onalcoholic steatohepatitis (VÁZQUEZ) - K75.81? 4. A nemia in other chronic diseases classified elsewhere - D63.8 Plan: * Treatment: 2. P rediabetes L AB: Complete Blood Count Auto Diff (Collection Date & Time - 04/24/2025 07:30 AM) L AB: Liver Panel (Collection Date & Time - 04/24/2025 07:30 AM) L AB: Lipid Panel (Collection Date & Time - 04/24/2025 07:30 AM) L AB: PSA,Total (Free>4and<10) (Collection Date & Time - 04/24/2025 07:30 AM) L AB: Microalbumin, Random (Collection Date & Time - 04/24/2025 07:30 AM) L AB: Hemoglobin A1c (Collection Date & Time - 04/24/2025 07:30 AM) L AB: UA ClnCatch+Micro w/rflx Cult (Collection Date & Time - 04/24/2025 07:30 AM) 3. N onalcoholic steatohepatitis (VÁZQUEZ) L AB: Complete Blood Count Auto Diff (Collection Date & Time - 04/24/2025 07:30 AM) L AB: Liver Panel (Collection Date & Time - 04/24/2025 07:30 AM) L AB: Lipid Panel (Collection Date & Time - 04/24/2025 07:30 AM) L AB: PSA,Total (Free>4and<10) (Collection Date & Time - 04/24/2025 07:30 AM) L AB: Microalbumin, Random (Collection Date & Time - 04/24/2025 07:30 AM) L AB: Hemoglobin A1c (Collection Date & Time - 04/24/2025 07:30 AM) L AB: UA ClnCatch+Micro w/rflx Cult (Collection Date & Time - 04/24/2025 07:30 AM) 4. A nemia in other chronic diseases classified elsewhere L AB: Complete Blood Count Auto Diff (Collection Date & Time - 04/24/2025 07:30 AM) L AB: Liver Panel (Collection Date & Time - 04/24/2025 07:30 AM) L AB: Lipid Panel (Collection Date & Time - 04/24/2025 07:30 AM) L AB: PSA,Total (Free>4and<10) (Collection Date & Time - 04/24/2025 07:30 AM) L AB: Microalbumin, Random (Collection Date & Time - 04/24/2025 07:30 AM) L AB: Hemoglobin A1c (Collection Date & Time - 04/24/2025 07:30 AM) L AB: UA ClnCatch+Micro w/rflx Cult (Collection Date & Time - 04/24/2025 07:30 AM) * Procedure Codes: 3 6415 VENIPUNCT, ROUTINE* * * The named appointment provid er may or may not be the originator of this progress note, and it is not deemed complete until electronically signed by the appointment provider. Sign off status: Pending * Provider: Joel Almonte MD Date: 0 04/24/2025 Generated for Kamilah ng/Bharati/eTransmitting on: 12/12/2024 08:39 PM EST
--- OUTSIDE RECORDS SUMMARY | 2025-05-01 08:00 | XMS_ITS ---
Author Organization Luke Almonte MD Address [address] [place] [phone] Care Team Providers Care Millwright Supervisor Name Role Phone Luke Almonte Primary Care Provider [phone] Allergies Allergen (clinical drug ingredient) Drug/Non Drug Allergy documented on EMR Reaction Allergy Type Onset Date Status rizatriptan Rizatriptan Benzoate rash Drug Allergy Active morphine Morphine Sulfate cardiac arrest Drug Allergy Active lisinopril Lisinopril rash Drug Allergy Activ e Results Component Value Reference Range Notes Occult Blood, Stool, Guaiac Reviewed date:05/01/2025 04:02:03 PM Interpretation:Negative Performing Lab: Notes/Report: Negative Occult Blood, Stool, Guaiac Neg REASON FOR VISIT ANNUAL EXAM Medications Medication SIG (Take, Route, Frequency, Duration) Notes Start Date End Date Status SUMAtriptan Succinate 100 TAKE 1 TABLET BY MOUTH DAILY for 9 Not-Taking Relpax 40 MG TAKE 1 TABLET BY JYOTI TH EVERY DAY NEEDED for 12 Not-Taking Permethrin 5 % 1 application Externally Two times a Week for 7 days 08/27/2020 Not-Taking ProAir RespiClick 108 (90 Base) MCG/ACT 2 puffs as needed Inhalation every 6 hrs for 25 Not-Taking Eletriptan Hydrobromide 40 MG 1 tablet Orally Once a day for 1 day(s) Not-Taking Topamax 50 MG 50mg mg PM Orally twice a day Not-Taking Potassium Chloride ER 8 MEQ take 1 tablet by mouth every day with food Orally Once a day for 90 days Not-Taking Diflucan 100 MG 1 tablet Orally twic e a day for 14 days 08/23/2024 Not-Taking Naratriptan HCl 2.5 MG 1 tablet Orally O nce a day for 1 day(s) Not-Taking Cyclobenzaprine HCl 10 MG TAKE 1/2 TABLE T BY MOUTH EVERY DAY AT BEDTIME for 60 Not-Taking Verapamil HCl ER 240 MG TAKE 1 TABLET ON CE A DAY for 90 Active Escitalopram Oxalate 10 MG TAKE 1 TABLET BY MOUTH EVERY DAY IN THE MORNING for 90 Active Diflucan 100 MG 1 tablet Orally marco y for 10 days 11/01/2024 Not-Taking Omeprazole 20 MG TAKE 1 CAPSULE ONCE DAILY for 90 Active Ketoconazole 2 % 1 application Externally Once a day for 14 days 10/17/2024 Active Aspir-Low 81 MG 1 tablet Orally Once a day for 30 day(s) 03/16/2023 Active Ondansetron 4 MG 1 tablet on the tong ue and allow to dissolve Orally Once a day for 30 day(s) Active Triamcinolone Acetonide 0.5 % 1 application Externally Two times a Week for 30 days 08/15/2021 Active valACYclovir HCl 1 GM TAKE 1 TABLET BY OUT TWICE DAILY FOR 5 DAYS for 5 Active Triamcinolone Acetonide 0.1 % 1 application Externally Two times a Week for 10 days 08/23/2024 Active Vitamin B2 Active Rizatriptan Benzoate 5 MG 1 tablet Orall y Once a day for 1 day(s) Active Nurtec 75 MG 1 tablet on the tong ue and allow to dissolve Orally Active Social History Tobacco Use: Social History Observation Description Date Details (start date - stop date) Never Smoker NA - NA Tobacco Use/Smoking Question Answer Notes Patient is a nonsmoker Additional Findings: Tobacco Non-User Cu rrent non-smoker, currently using no form of tobacco Alcohol Screen Question Answer Notes Did you have a drink containing alcohol in the p ast year? No Points 0 Interpretation Negative Vital Signs Blood pressure systolic 110 mm Hg 05/01/20 25 Blood pressure diastolic 64 mm Hg 025 Height 75 in 05/01/2025 Weight 224 lbs 05/01/2025 BMI 28 kg/m2 05/01/2025 Encounters Encounter Location Date Provider Diagnosis Luke Almonte MD [address] [place] [phone] 05/01/2025 Luke Almonte Annual physical exam Z00.00 ; Elevated LFTs R79.89 ; Prediabetes R73.09 ; Essential hypertension I10 ; Gastroesophageal reflux disease without esophagitis K21.9 ; Colon cancer screening Z12.11 and Depression screening Z13.31 Assessments Encounter Date Diagnosis (ICD Code) Assessment Notes Treatment Notes Treatment Clinical Notes Section Notes 05/01/2025 Annual physical exam (ICD-10 - Z00.00) labs reviewed and discussed with patient 05/01/2025 Elevated LFTs (ICD-10 - R79.89) will continue to monitor, future labs pending 05/01/2025 Prediabetes (ICD-10 - R73.09) stable, no need for medication atg this time 05/01/2025 Essential hypertension (ICD-10 - I10) stabe will continue current regiment 05/01/2025 Gastroesophageal reflux disease without esophagitis (ICD-10 - K21.9) stable, will continue current regiment 05/01/2025 Colon cancer screening (ICD-10 - Z12.11) guaiac negative 05/01/2025 Depression screening (ICD-10 - Z13.31) Plan Of Treatment Treatment Notes Assessment Notes Annual physical exam labs reviewed and d iscussed with patient Elevated LFTs will continue to mon itor, future labs pending Prediabetes stable, no need for medication atg this time Essential hypertension stabe will contin ue current regiment Gastroesophageal reflux dise ase without esophagitis stable, will continue current regiment Colon cancer screening guaiac negative Next Appt Details Follow Up: 6 Months, Reason: Provider Name:Luke schulte, 04/30/2026 07:15:00 AM, [address], [address], [place], [place], [phone], Provider Name:Luke Schafer ier, 05/07/2026 01:00:00 PM, [address] [facility], [address], [place], [place], [phone], Progress Notes * Steve CABRAL VDOB:[birth year] (59 yo M)Acc No.[id number]:05/01/2025 Progress Notes Patient: Steve LIZAMA V Provider: Joel Almonte MD :1965 A ge:59 Y S ex:Male Date:05/01/2025 Address:[address] [place] [address], Michel [id number] Subjective: * Chief Complaints: * A NNUAL EXAM * HPI: D epression Screening: PHQ-9 L ittle interest or pleasure in doing things N ot at all, F eeling down, depressed, or hopeless N ot at all, T rouble falling or staying asleep, or sleeping too much N ot at all, F eeling tired or having little energy N ot at all, P oor appetite or overeating N ot at all, F eeling bad about yourself or that you are a failure, or have let yourself or your family down N ot at all, T rouble concentrating on things, such as reading the newspaper or watching television N ot at all, M oving or speaking so slowly that other people could have noticed; or the opposite, being so fidgety or restless that you have been moving around a lot more than usual N ot at all, T houghts that you would be better off or of hurting yourself in some way N ot at all, T otal Score 0 . I nterpretation and Intervention D epression Screening Findings N egative, F ollow-Up for Depression : review of PHQ-9 found negative result, no follow-up needed. C ommunication Needs: Communication Needs D oes the patient have a hearing impairment N o, D oes the patient have a vision impairment? Y es, I f yes, what is the vision impairment? G lasses, D oes the patient have a cognition impairment? N o. F all Risk: History H ave you had any falls with injury in the past year? N o, H ave you had two or more falls in the past year? N o. S BRIAN Questions: SDOH Questions I n the past year have you been worried about losing housing? N o, I n the past year have you or any family members you live with been unable to get any of the following when it was really needed? Check all that apply: N one. S ymptom(s): patient is a 59 yo male here for nicolle gamez of recent labs and follow up of chronic issues. complaining he is tired alot. * ROS: G eneral/Constitutional: Change in appetite d enies. C hills d enies. F ever d enies. O phthalmologic: Blurred vision d enies. D ischarge d enies. P ain d enies. E NT: Decreased hearing d enies. S ore throat d enies.?Swollen glands d enies. E ndocrine: Cold intolerance d enies. E xcessive thirst d enies. H eat intolerance d enies. W eight loss d enies. R espiratory: Cough d enies. S hortness of breath at rest d enies. S hortness of breath with exertion d enies. W heezing d enies. C ardiovascular: Chest pain at rest d enies. C hest pain with exertion?denies. I rregular heartbeat d enies. S hortness of breath d enies. ? G astrointestinal: Abdominal pain d enies. C hange in bowel habits d enies. D iarrhea d enies. N ausea d enies. R ectal bleeding d enies. V omiting d enies . G enitourinary: Blood in urine d enies. D ifficulty urinating d enies. F requent urination d enies. M usculoskeletal: Painful joints d enies. W eakness d enies. ? S kin: Dry skin d enies. I tching d enies. D enies?Mole(s), changes in moles, new moles or any lesions of concern. D enies P hotosensitivity. R sasha d enies. N eurologic: Dizziness d enies. F ainting d enies. H eadache?denies. * Medical History: * Surgical History: * Hospitalization/Major Diagno stic Procedure: * Family History: F ather: 79 yrs. M other: 73 yrs. 4 brother(s) , 2 sister(s) . 1 son(s) , 1 daughter(s) . . Father-Healthy Mother-Healthy, 3 brothers mental illness substance abuse 1 brother 2 sisters alcohol and drug abuse Mother lung cancer, Denies mental health/substance abuse family history, Denies mental health/substance abuse family history, No pertinent family medical history. * Social History: T obacco Use: T obacco Use/Smoking P atient is a n onsmoker, A dditional Findings: Tobacco Non-User C urrent non-smoker, currently using no form of tobacco. D rugs/Alcohol: A lcohol Screen D id you have a drink containing alcohol in the past year? N o, P oints 0 , I nterpretation N egative. M iscellaneous: C affeine: yes, frequency:, 1-2 cups per day. Children: yes. Community involvements: no. Exercise: yes, walks the dog everyday. Housing: owning. Living with: alone. Marital status: single. Occupation: works full-time, [employer]. Pets: dog. Travel outside of the [place] States: yes, [place]. * Medications: T akingNurtec 75 MG Tablet Disintegrating 1 tablet on the tongue and allow to dissolve Orally Rizatriptan Benzoate 5 MG Tablet 1 tablet Orally Once a day Vitamin B2 Triamcinolone Acetonide 0.5 % Cream 1 application Externally Two times a Week Aspir-Low 81 MG Tablet Delayed Release 1 tablet Orally Once a day Ondansetron 4 MG Tablet Disintegrating 1 tablet on the tongue and allow to dissolve Orally Once a day valACYclovir HCl 1 GM Tablet TAKE 1 TABLET BY MOUTH TWICE DAILY FOR 5 DAYS Triamcinolone Acetonide 0.1 % Cream 1 application Externally Two times a Week Omeprazole 20 MG Capsule Delayed Release TAKE 1 CAPSULE ONCE DAILY Ketoconazole 2 % Cream 1 application Externally Once a day Verapamil HCl ER 240 MG Tablet Extended Release TAKE 1 TABLET ONCE A DAY Escitalopram Oxalate 10 MG Tablet TAKE 1 TABLET BY MOUTH EVERY DAY IN THE MORNING Taking Nurtec 75 MG Tablet Disintegrating 1 tablet on the tongue and allow to dissolve Orally Taking Rizatriptan Benzoate 5 MG Tablet 1 tablet Orally Once a day Taking Vitamin B2 Taking Triamcinolone Acetonide 0.5 % Cream 1 application Externally Two times a Week Taking Aspir-Low 81 MG Tablet Delayed Release 1 tablet Orally Once a day Taking Ondansetron 4 MG Tablet Disintegrating 1 tablet on the tongue and allow to dissolve Orally Once a day Taking valACYclovir HCl 1 GM Tablet TAKE 1 TABLET BY MOUTH TWICE DAILY FOR 5 DAYS Taking Triamcinolone Acetonide 0.1 % Cream 1 application Externally Two times a Week Taking Omeprazole 20 MG Capsule Delayed Release TAKE 1 CAPSULE ONCE DAILY Taking Ketoconazole 2 % Cream 1 application Externally Once a day Taking Verapamil HCl ER 240 MG Tablet Extended Release TAKE 1 TABLET ONCE A DAY Taking Escitalopram Oxalate 10 MG Tablet TAKE 1 TABLET BY MOUTH EVERY DAY IN THE MORNING Not-Taking/PRNDiflucan 100 MG Tablet 1 tablet Orally daily Diflucan 100 MG Tablet 1 tablet Orally twice a day Naratriptan HCl 2.5 MG Tablet 1 tablet Orally Once a day Topamax 50 MG Tablet 50mg mg PM Orally twice a day Potassium Chloride ER 8 MEQ Tablet Extended Release take 1 tablet by mouth every day with food Orally Once a day Cyclobenzaprine HCl 10 MG Tablet TAKE 1/2 TABLET BY MOUTH EVERY DAY AT BEDTIME Eletriptan Hydrobromide 40 MG Tablet 1 tablet Orally Once a day Permethrin 5 % Cream 1 application Externally Two times a Week ProAir RespiClick 108 (90 Base) MCG/ACT Aerosol Powder Breath Activated 2 puffs as needed Inhalation every 6 hrs Relpax 40 MG Tablet TAKE 1 TABLET BY MOUTH EVERY DAY NEEDED SUMAtriptan Succinate 100 Tablet TAKE 1 TABLET BY MOUTH DAILY Medication List reviewed and reconciled with the patientNot-Taking/PRN Diflucan 100 MG Tablet 1 tablet Orally daily Not-Taking/PRN Diflucan 100 MG Tablet 1 tablet Orally twice a day Not-Taking/PRN Naratriptan HCl 2.5 MG Tablet 1 tablet Orally Once a day Not-Taking/PRN Topamax 50 MG Tablet 50mg mg PM Orally twice a day Not-Taking/PRN Potassium Chloride ER 8 MEQ Tablet Extended Release take 1 tablet by mouth every day with food Orally Once a day Not-Taking/PRN Cyclobenzaprine HCl 10 MG Tablet TAKE 1/2 TABLET BY MOUTH EVERY DAY AT BEDTIME Not-Taking/PRN Eletriptan Hydrobromide 40 MG Tablet 1 tablet Orally Once a day Not-Taking/PRN Permethrin 5 % Cream 1 application Externally Two times a Week Not-Taking/PRN ProAir RespiClick 108 (90 Base) MCG/ACT Aerosol Powder Breath Activated 2 puffs as needed Inhalation every 6 hrs Not-Taking/PRN Relpax 40 MG Tablet TAKE 1 TABLET BY MOUTH EVERY DAY NEEDED Not-Taking/PRN SUMAtriptan Succinate 100 Tablet TAKE 1 TABLET BY MOUTH DAILY Medication List reviewed and reconciled with the patient * Allergies: M orphine Sulfate: cardiac arrestLisinopril: rashRizatriptan Benzoate: arturo[Allergies Verified] Objective: * Vitals: H t: 75, Wt: 224, BMI:28, BP:110/64, Wt-k.61. * P ast Orders: L ab:Microalbumin, Random (Order Date - 04/24/2025) (Collection Date & Time - 04/24/2025 07:30 AM) Value Reference Range Creatinine Urine 258.98 - mg/dL Microalbumin Urine 12.0 - mg/L Microalbum Creatinine Ratio Ur 4.6 <30 - ug/ mg cr L ab:Hemoglobin A1c (Order Date - 04/24/2025) (Collection Date & Time - 04/24/2025 07:30 AM) Value Reference Range Hemoglobin A1c % 5.2 <6.0 - % Estimated Average Glucose 103 - mg/dL L ab:Complete Blood Count Auto Diff (Order Date - 04/24/2025) (Collection Date & Time - 04/24/2025 07:30 AM) Value Reference Range White Blood Count 5.5 4.8-10.8 - X10*3/uL Red Blood Count 4.62 4.60-5.80 - X10*6/uL Hemoglobin 14.7 14.0-18.0 - g/dl Hematocrit 41.7 L 42.0-52.0 - % Mean Corpuscular Volume 90.3 80.0-98.0 - fL Mean Corpuscular Hemoglobin 31.8 27.0-33.0 - pg Mean Corpuscular HGB Conc 35.3 31.0-36.0 - g/ dl Red Cell Distribution Width 14.0 11.0-16.0 - % Platelet Count 209 160-400 - X10*3/uL Mean Platelet Volume 9.1 L 9.4-12.4 - fL Neutrophils Percent Auto 52.7 45-73 - % Imm Gran Pct Auto 0.5 H 0.0-0.4 - % Lymphocytes Percent Auto 34.4 20-40 - % Monocytes Percent Auto 8.2 2-11 - % Eosinophils Percent Auto 3.5 0-4 - % Basophils Percent Auto 0.7 0-2 - % NRBC Pct Auto 0.0 0.0-0.2 - /100WBC Neutrophils Absolute Auto 2.9 2.0-8.3 - x10* 3/uL Imm Gran Abs Auto 0.03 0.00-0.03 - X10*3/uL Lymphocytes Absolute Auto 1.9 1.2-4.9 - X10* 3/uL Monocytes Absolute Auto 0.5 0.1-1.2 - X10*3/ uL Eosinophils Absolute Auto 0.2 0.0-0.4 - X10* 3/uL Basophils Absolute Auto 0.0 0.0-0.2 - X10*3/ uL NRBC Abs Auto 0.000 0.0-0.012 - X10*3/uL L ab:UA ClnCatch+Micro w/rflx Cult (Order Date - 04/24/2025) (Collection Date & Time - 04/24/2025 07:30 AM) Value Reference Range Color Urine Dark Yellow - Appearance Urine Clear - PH 6.5 5.0-9.0 - Glucose Urine UA Negative Negative - mg/dL Urine Blood Negative Negative - Specific [place] - Urine 1.025 1.005-1.025 - Urine Protein Negative Neg-Trace - mg/dL Urine Ketones Trace Negative - mg/dL Nitrite Urine Negative Negative - Leukocyte Esterase Urine Trace A Negative - RBC Urine 0-2 0-2 - /HPF WBC Urine 0-5 0-5 - /HPF Squamous Epithelial Cell Urine 0-2 0-2 - /HP F Bacteria Urine None Seen None Seen - Hyaline Casts Urine 0-2 0-2 - /LPF L ab:Liver Panel (Order Date - 04/24/2025) (Collection Date & Time - 04/24/2025 07:30 AM) Value Reference Range Bilirubin Total 0.5 0.0-1.0 - mg/dL Bilirubin Direct 0.2 0.0-0.5 - mg/dL Aspartate Amino Transferase 40 H 5-37 - U/L Alanine Aminotransferase 53 H 0-40 - U/L Total Protein 7.0 6.5-8.0 - g/dL Albumin Level 4.5 3.5-5.0 - g/dL Alkaline Phosphatase 69 39-117 - U/L L ab:Lipid Panel (Order Date - 04/24/2025) (Collection Date & Time - 04/24/2025 07:30 AM) Value Reference Range Triglycerides 106 <150 - mg/dL Cholesterol 115 <200 - mg/dL LDL Cholesterol Calculated 64 <100 - mg/dL HDL Cholesterol 30 L >40 - mg/dL * Examination: G eneral Examination: GENERAL APPEARANCE: w ell developed, well nourished, in no acute distress. HEAD: n ormocephalic, atraumatic. EYES: p upils equal, round, reactive to light and accommodation, sclera non-icteric. EARS: n ormal. ORAL CAVITY: m ucosa moist. THROAT: c lear. NECK/THYROID: n gasper supple, full range of motion, no cervical lymphadenopathy, no bruits. SKIN: w arm and dry, no suspicious lesions. HEART: r egular rate and rhythm, S1, S2 normal, no murmurs.? LUNGS: c lear to auscultation bilaterally. ABDOMEN: s oft, nontender, nondistended, bowel sounds present, normal, no organomegaly , no masses palpable. RECTAL EXAM: n ormal tone, no external hemorrhoids, no masses palpable, prostate normal, stool guaiac negative. MALE GENITOURINARY: n o penile lesions or discharge, uncircumcised, testes descended bilaterally, no testicular mass. EXTREMITIES: n o clubbing, cyanosis, or edema. NEUROLOGIC: n onfocal, motor strength normal upper and lower extremities, sensory exam intact. Assessment: * Assessment: 1. A nnual physical exam - Z00.00 (Primary) 2 . E levated LFTs - R79.89? 3. P rediabetes - R73.09 4 . E ssential hypertension - I10? 5. G astroesophageal reflux disease without esophagitis - K21.9 6 . C olon cancer screening - Z12.11 7 . D epression screening - Z13.31 ? Plan: * Treatment: 2. E levated LFTs L AB: Comprehensive [place]. Panel Fast (Ordered for 07/01/2025) Notes: will continue to monitor, future labs pending 3. P rediabetes Notes: stable, no need for medication atg this time 4. E ssential hypertension Notes: stabe will continue current regiment 5. G astroesophageal reflux disease without esophagitis Notes: stable, will continue current regiment 6. C olon cancer screening L AB: Occult Blood, Stool, Guaiac (Collection Date & Time - 05/01/2025) N egative Value Reference Range O ccult Blood, Stool, Guaiac Neg Notes: guaiac negative?? * Procedure Codes: 8 2270 TEST FOR BLOOD, FECES * Follow Up: 6 Months * * Sign off status: Completed true * Provider: Joel Almonte MD Date: 0 05/01/2025 Generated for Kamilah solis/Bharati/eTransmitting on: 1 12/12/2024 08:37 PM EST History and Physical Notes * HPI (History of Present Illness) Category Sub-Category Detail Notes Category Not es Symptom(s) patient is a 59 yo male here for review of recent labs and follow up of chronic issues. complaining he is tired alot Depression Screening PHQ-9 Little inte rest or pleasure in doing things: Not at all Feeling down, depressed, or hopeless: No t at all Trouble falling or staying asleep, or sl eeping too much: Not at all Feeling tired or having little energy: N ot at all Poor appetite or overeating: Not at all Feeling bad about yourself o r that you are a failure, or have let yourself or your family down: Not at all Trouble concentrating on thi ngs, such as reading the newspaper or watching television: Not at all Moving or speaking so slowly that other people could have noticed; or the opposite, being so fidgety or restless that you have been moving around a lot more than usual: Not at all Thoughts that you would be b leonidas off or of hurting yourself in some way: Not at all Total Score: 0 Interpretation and Intervention Depression Mercedes thorpe Findings: Negative Follow-Up for Depression: : review of PH Q-9 found negative result, no follow-up needed SDOH Questions SDOH Questions In the past year have you been worried about losing housing?: No In the past year have you or any family members you live with been unable to get any of the following when it was really needed? Check all that apply:: None Fall Risk History Have you had any falls with injury i n the past year?: No Have you had two or more falls in the year?: No Communication Needs Communication Needs Does the patient have a hearing impairment: No Does the patient have a vision impairmen t?: Yes If yes, what is the vision impairment?: Glasses Does the patient have a cognition impair ment?: No Examination Category Sub-Category Detail Notes Category Not es General Examination GENERAL APPEARANCE: well dev eloped, well nourished, in no acute distress HEAD: normocephalic, atrau matic EYES: pupils equal, round, reactive to light and accommodation, sclera non-icteric EARS: normal THROAT: clear NECK/THYROID: neck supple, full ra nge of motion, no cervical lymphadenopathy, no bruits HEART: regular rate and rhy thm, S1, S2 normal, no murmurs LUNGS: clear to auscultatio n bilaterally ABDOMEN: soft, nontender, non distended, bowel sounds present, normal, no organomegaly , no masses palpable NEUROLOGIC: nonfocal, motor stre ngth normal upper and lower extremities, sensory exam intact SKIN: warm and dry, no gregory picious lesions EXTREMITIES: no clubbing, cyanosi s, or edema MALE GENITOURINARY: no penile lesions or discharge, uncircumcised, testes descended bilaterally, no testicular mass RECTAL EXAM: normal tone, no exte rnal hemorrhoids, no masses palpable, prostate normal, stool guaiac negative ORAL CAVITY: mucosa moist
--- OUTSIDE RECORDS SUMMARY | 2025-06-29 03:38 | XMS_ITS ---
Author Organization Luke Almonte MD Address [address] [facility] [address] [place] [phone] Care Team Providers Care Vice President Of Compliance Name Role Phone Luke Almonte Primary Care Provider REASON FOR VISIT ER Visit rec'd Encounters Encounter Location Date Provider Diagnosis Luke Almonte MD [address] [place] [address] [place] [phone] 06/29/2025 Luke Almonte Plan Of Treatment Next Appt Details Provider Name:Luke schulte, 04/30/2026 07:15:00 AM, [address] [place] [address], [address], [phone], Provider Name:Luke schulte, 05/07/2026 01:00:00 PM, [address] [place] [address], [address], [phone], Progress Notes * Steve CABRAL VDOB:[birth year] (59 yo M)Acc No.[id number]:06/29/2025 Patient: Steve LIZAMA V :1965 A ge:59 Y S ex:Male Address:[address] [place] [address] [place] [address] * true * Date: Generated for Kamilah solis/Bharati/Alistairsmitting on: 12/12/2024 08:38 PM EST
--- OUTSIDE RECORDS SUMMARY | 2025-07-03 02:30 | XMS_ITS ---
Author Organization Luke Almonte MD Address [address] [place] [phone] Care Team Providers Care Jewel Lathe Operator Name Role Phone Luke Almonte Primary Care Provider [phone] Results Component Value Reference Range Notes Comprehensive [place]. Panel Fa st Reviewed date:07/03/2025 06:01:40 PM Interpretation: Performing Lab:[facility], [address] [place] [address] Notes/Report: Sodium 142 135-145 mmol/L Potassium 4.0 3.3-5.1 mmol/L Chloride 108 96-108 mmol/L Carbon Dioxide 27 22-29 mmol/L Anion Gap 11 12-20 Blood Urea Nitrogen 18 9-16 mg/dL Creatinine 1.09 0.5-1.4 mg/dL Estimated Glomerular Filt Rate > 60 Chronic Kidney Disease: Estimated GFR < 60 mL/min/1.73m2 Severe Kidney Disease: Estimated GFR < 15 mL/min/1.73m2 Glucose Fasting 103 60-99 mg/dL A fasting glucose from 100-125 mg/dl is considered impaired (pre-diabetes). Calcium 9.1 8.4-10.2 mg/dL Bilirubin Total 0.5 0.0-1.0 mg/dL Aspartate Amino Transferase 38 5-37 U/L Alanine Aminotransferase 41 0-40 U/L Total Protein 7.3 6.5-8.0 g/dL Albumin Level 4.6 3.5-5.0 g/dL Alkaline Phosphatase 75 39-117 U/L REASON FOR VISIT comp met panel Encounters Encounter Location Date Provider Diagnosis Luke Almonte MD [address] [place] [address] [place] [phone] 07/03/2025 Luke Almonte Elevated LFTs R79.89 Assessments Encounter Date Diagnosis (ICD Code) Assessment Notes Treatment Notes Treatment Clinical Notes Section Notes 07/03/2025 Elevated LFTs (ICD-10 - R79.89) Plan Of Treatment Next Appt Details Provider Name:Luke schulte, 04/30/2026 07:15:00 AM, [address] [place] [address], Suite [facility], [place], [place], [phone], Provider Name:Luke schulte, 05/07/2026 01:00:00 PM, [address] [place] [address], Suite [facility], [place], [place], [phone], Progress Notes * PRABHASylviae VDOB:[birth year] (60 yo M)Acc No.[id number]:07/03/2025 Progress Note Patient: Steve LIZAMA V Provider: Joel Almonte MD :1965 A ge:59 Y S ex:Male Date:07/03/2025 Address:[address] [place] [address], [id number] Subjective: * Chief Complaints: * 1 . Comp met panel. * Medical History: Objective: * Vitals: Assessment: * Assessment: 1. E levated LFTs - R79.89 (Primary) Plan: * Treatment: * Procedure Codes: 3 6415 VENIPUNCT, ROUTINE* * * The named appointment provid er may or may not be the originator of this progress note, and it is not deemed complete until electronically signed by the appointment provider. Sign off status: Pending * Provider: Joel Almonte MD Date: 0 07/03/2025 Generated for Kamilah solis/Bharati/Kristy on: 1 12/12/2024 08:37 PM EST
--- OUTSIDE RECORDS SUMMARY | 2025-09-21 05:30 | XMS_ITS ---
Author Organization Luke Almonte MD Address [address] [place] [phone] Care Team Providers Care Nitro Worker Name Role Phone Luke Almonte Primary Care Provider Allergies Allergen (clinical drug ingredient) Drug/Non Drug Allergy documented on EMR Reaction Allergy Type Onset Date Status rizatriptan Rizatriptan Benzoate rash Drug Allergy Active morphine Morphine Sulfate cardiac arrest Drug Allergy Active lisinopril Lisinopril rash Drug Allergy Activ e REASON FOR VISIT ? Diverticulitis, Patient wants to go to [place] ER Medications Medication SIG (Take, Route, Frequency, Duration) Notes Start Date End Date Status Eletriptan Hydrobromide 40 MG 1 tablet Orally Once a day for 1 day(s) Not-Taking SUMAtriptan Succinate 100 TAKE 1 TABLET BY MOUTH DAILY for 9 Not-Taking Relpax 40 MG TAKE 1 TABLET BY JYOTI TH EVERY DAY NEEDED for 12 Not-Taking ProAir RespiClick 108 (90 Base) MCG/ACT 2 puffs as needed Inhalation every 6 hrs for 25 Not-Taking Permethrin 5 % 1 application Externally Two times a Week for 7 days 08/27/2020 Not-Taking Cyclobenzaprine HCl 10 MG TAKE 1/2 TABLE T BY MOUTH EVERY DAY AT BEDTIME for 60 Not-Taking Potassium Chloride ER 8 MEQ take 1 tablet by mouth every day with food Orally Once a day for 90 days Not-Taking Topamax 50 MG 50mg mg PM Orally twice a day Not-Taking Naratriptan HCl 2.5 MG 1 tablet Orally O nce a day for 1 day(s) Not-Taking Diflucan 100 MG 1 tablet Orally twic e a day for 14 days 08/23/2024 Not-Taking Diflucan 100 MG 1 tablet Orally marco y for 10 days 11/01/2024 Not-Taking Escitalopram Oxalate 10 MG TAKE 1 TABLET BY MOUTH EVERY DAY IN THE MORNING for 90 Active Verapamil HCl ER 240 MG TAKE 1 TABLET ON CE A DAY for 90 Active Ketoconazole 2 % 1 application Externally Once a day for 14 days 10/17/2024 Active Omeprazole 20 MG TAKE 1 CAPSULE ONCE DAILY for 90 Active Triamcinolone Acetonide 0.1 % 1 application Externally Two times a Week for 10 days 08/23/2024 Active valACYclovir HCl 1 GM TAKE 1 TABLET BY [facility] TWICE DAILY FOR 5 DAYS for 5 Active Ondansetron 4 MG 1 tablet on the tong ue and allow to dissolve Orally Once a day for 30 day(s) Active Aspir-Low 81 MG 1 tablet Orally Once a day for 30 day(s) 03/16/2023 Active Triamcinolone Acetonide 0.5 % 1 application Externally Two times a Week for 30 days 08/15/2021 Active Vitamin B2 Active Rizatriptan Benzoate 5 MG 1 tablet Orall y Once a day for 1 day(s) Not-Taking Nurtec 75 MG 1 tablet on the tong ue and allow to dissolve Orally Active Problems Problem Type SNOMED Code ICD Code Onset Dates Problem Status W/U Status Risk Notes Problem Diverticulitis (01830785) Diverticulitis (K57.92) Active confirmed Vital Signs Blood pressure systolic 82 mm Hg 09/21/20 25 Blood pressure diastolic 60 mm Hg 025 Height 75 in 09/21/2025 Weight 223 lbs 09/21/2025 BMI 27.87 kg/m2 09/21/2025 Encounters Encounter Location Date Provider Diagnosis Luke Almonte MD [address] [place] [address] Drive [address] [place] [phone] 09/21/2025 Luke Almonte Urinary retention R33.9 and Diverticulitis K57.92 Assessments Encounter Date Diagnosis (ICD Code) Assessment Notes Treatment Notes Treatment Clinical Notes Section Notes 09/21/2025 Urinary retention (ICD-10 - R33.9) may be the cause of all his pain 09/21/2025 Diverticulitis (ICD-10 - K57.92) needs hopital send to er feels he can walk Plan Of Treatment Treatment Notes Assessment Notes Urinary retention may be the cause of all his pain Diverticulitis needs hopital send t o er feels he can walk Next Appt Details Provider Name:Luke Schafer ier, 04/30/2026 07:15:00 AM, [address] [place] [address], Suite [facility], [place], [place], [phone], Provider Name:Luke Schafer ier, 05/07/2026 01:00:00 PM, [address] [place] [address], Suite [facility], [place], [place], [phone], Progress Notes * Steve CABRAL VDOB:[birth year] (60 yo M)Acc No.[id number]:09/21/2025 Progress Notes Patient: Steve LIZAMA V Provider: Joel Almonte MD :1965 A ge:60 Y S ex:Male Date:09/21/2025 Address:[address] [place] [address], [id number] Subjective: * Chief Complaints: * ? DiverticulitisPatient wants to go to [place] ER * HPI: S ymptom(s): patient is a 60 yo male here with complaint of having a lot of pain. started 4 days ago, yesterday was shaking. severe pain. can't urinate. having trouble with bowels. * ROS: G eneral/Constitutional: Admits C hills. D enies F atigue. D enies F ever. A dmits H eadache. E NT: Denies S ore throat. R espiratory: Denies C ough. D enies S hortness of breath at rest. D enies S hortness of breath with exertion. G astrointestinal: Admits A bdominal pain. D enies B lood in stool.?Admits C onstipation. A dmits D iarrhea. A dmits N ausea. D enies V omiting. * Medical History: * Surgical History: * Hospitalization/Major Diagno stic Procedure: * Medications: T akingNurtec 75 MG Tablet Disintegrating 1 tablet on the tongue and allow to dissolve Orally Vitamin B2 Triamcinolone Acetonide 0.5 % Cream [...] tongue and allow to dissolve Orally Taking Vitamin B2 Taking Triamcinolone Acetonide 0.5 [...] BY MOUTH EVERY DAY IN THE MORNING Not-Taking/PRNRizatriptan Benzoate 5 MG Tablet 1 tablet Orally Once a day Diflucan 100 MG Tablet 1 tablet Orally [...] List reviewed and reconciled with the patientNot-Taking/PRN Rizatriptan Benzoate 5 MG Tablet 1 tablet Orally Once a day Not-Taking/PRN Diflucan 100 MG Tablet 1 tablet [...] Objective: * Vitals: H t: 75, Wt: 223, BMI:27.87, BP:82/60, Wt-k.15. * Examination: G eneral Examination: GENERAL APPEARANCE: a lert, well hydrated, in severe pain.? SKIN: g ood turgor. HEART: n o murmurs, rubs, gallops, regular rate and rhythm.? ABDOMEN: m arked tenderness in entire abdomen. ? Assessment: * Assessment: 1. U rinary retention - R33.9 (Primary) 2 . D iverticulitis - K57.92 ? Plan: * Treatment: 2. D iverticulitis Notes: needs hopital send to er feels he can walk * Procedure Codes: * * Sign off status: Completed true * Provider: Joel Almonte MD Date: Generated for Kamilah solis/Bharati/Alistairsmitting on: 12/12/2024 08:39 PM EST History and Physical Notes * Examination Category Sub-Category Detail Notes Category Not es General Examination GENERAL APPEARANCE: alert, w ell hydrated, in severe pain HEART: no murmurs, rubs, ga llops, regular rate and rhythm ABDOMEN: marked tenderness in entire abdomen SKIN: good turgor
--- OUTSIDE RECORDS SUMMARY | 2025-09-22 08:35 | XMS_ITS ---
Author Organization Luke Almonte MD Address [address] [place] [phone] Care Team Providers Care Obstetrics Gynecology Physician Name Role Phone Luke Almonte Primary Care Provider REASON FOR VISIT discharge Encounters Encounter Location Date Provider Diagnosis Luke Almonte MD [address] [place] [address] [address] [place] [phone] 09/22/2025 Luke Almonte Plan Of Treatment Next Appt Details Provider Name:Luke schulte, 04/30/2026 07:15:00 AM, [address] [place] [address], [address], [phone], Provider Name:Luke schulte, 05/07/2026 01:00:00 PM, [address] [place] [address], [address], [phone], Progress Notes * Steve CABRAL VDOB:[birth year] (60 yo M)Acc No.[id number]:09/22/2025 Patient: Steve LIZAMA V :1965 A ge:60 Y S ex:Male Address:[address] [place] [address] [place] [address] * true * Date: Generated for Kamilah solis/Bharati/Alistairsmitting on: 12/12/2024 08:38 PM EST
--- OUTSIDE RECORDS SUMMARY | 2025-09-28 06:30 | XMS_ITS ---
Author Organization Luke Almonte MD Address [address] [place] [phone] Care Team Providers Care Associate Professor Of Mathematics Name Role Phone Luke Almonte Primary Care Provider Allergies Allergen (clinical drug ingredient) Drug/Non Drug Allergy documented on EMR Reaction Allergy Type Onset Date Status rizatriptan Rizatriptan Benzoate rash Drug Allergy Active morphine Morphine Sulfate cardiac arrest Drug Allergy Active lisinopril Lisinopril rash Drug Allergy Activ e Results Component Value Reference Range Notes Urinalysis and Microscopic Reviewed date:09/28/2025 03:34:49 PM Interpretation: Performing Lab:[facility], [address] [place] [phone] Notes/Report: Color Urine Yellow Appearance Urine Clear PH 7.0 5.0-9.0 Glucose Urine UA Negative Negative mg/dL Urine Blood Negative Negative Specific [place] - Urine 1.010 1.005-1.025 Urine Protein Negative [...] W/U Status Risk Notes Problem Kidney stone (58129134) Kidney stone (N20.0) Active confirmed Vital Signs Blood pressure systolic 122 mm Hg 09/28/20 25 Blood pressure diastolic 80 mm Hg 025 Height 75 in 09/28/2025 Weight 224 lbs 09/28/2025 BMI 28 kg/m2 09/28/2025 Encounters Encounter Location Date Provider Diagnosis Luke Almonte MD [address] [place] [phone] 09/28/2025 Luke Almonte Hematuria R31.9 and Kidney [...] cele: Provider Name:Luke schulte, 04/30/2026 07:15:00 AM, [address] [place] [address], [place] [address], [place], [place], [phone], Provider Name:Luke schulte, 05/07/2026 01:00:00 PM, [address] [place] [address], [address], [phone], Progress Notes * Steve CABRAL VDOB:[birth year] (60 yo M)Acc No.[id number]:09/28/2025 Patient: Michaela Steve HOBSON V Provider: Joel Almonte MD :1965 A ge:60 Y S ex:Male Date:09/28/2025 Address:[address] [place] [address], [place], [id number] Subjective: * Chief Complaints: * P H/TCM * HPI: S ymptom(s): patient is a [...] D enies N ausea. * Medical History: * Surgical History: * Hospitalization/Major Diagno stic Procedure: * Medications: T akingmetroNIDAZOLE 500 MG Tablet 1 tablet Orally Three times a day Cephalexin 500 MG Capsule 1 capsule Orally every 6 hrs Tamsulosin HCl 0.4 MG Capsule 1 capsule Orally Once a day Nurtec 75 MG Tablet Disintegrating 1 tablet [...] 1 application Externally Two times a Week Ketoconazole 2 % Cream 1 application Externally Once a day Verapamil HCl ER 240 MG Tablet Extended Release TAKE 1 TABLET ONCE A DAY Escitalopram Oxalate 10 MG Tablet TAKE 1 TABLET BY MOUTH EVERY DAY IN THE MORNING Omeprazole 20 MG Capsule Delayed Release TAKE 1 CAPSULE ONCE DAILY Taking metroNIDAZOLE 500 MG Tablet 1 tablet Orally Three times a day Taking Cephalexin 500 MG Capsule 1 capsule Orally every 6 hrs Taking Tamsulosin HCl 0.4 MG Capsule 1 capsule Orally Once a day Taking Nurtec 75 MG Tablet Disintegrating 1 [...] application Externally Two times a Week Taking Ketoconazole 2 % Cream 1 application Externally Once a day Taking Verapamil HCl ER 240 MG Tablet Extended Release TAKE 1 TABLET ONCE A DAY Taking Escitalopram Oxalate 10 MG Tablet TAKE 1 TABLET BY MOUTH EVERY DAY IN THE MORNING Taking Omeprazole 20 MG Capsule Delayed Release TAKE 1 CAPSULE ONCE DAILY Not-Taking/PRNRizatriptan Benzoate 5 MG Tablet 1 tablet Orally Once a day Naratriptan HCl 2.5 MG Tablet [...] Tablet 1 tablet Orally Once a day ProAir RespiClick 108 (90 Base) MCG/ACT Aerosol Powder Breath Activated 2 puffs as needed Inhalation every 6 hrs Relpax 40 MG Tablet TAKE 1 TABLET BY MOUTH EVERY DAY NEEDED SUMAtriptan Succinate 100 Tablet TAKE 1 TABLET BY MOUTH DAILY Medication List reviewed and reconciled with the patientNot-Taking/PRN Rizatriptan Benzoate 5 MG Tablet 1 tablet Orally Once a day Not-Taking/PRN Naratriptan HCl 2.5 MG [...] 1 tablet Orally Once a day Not-Taking/PRN ProAir RespiClick 108 (90 Base) MCG/ACT Aerosol Powder Breath Activated 2 puffs as needed Inhalation every 6 hrs Not-Taking/PRN Relpax 40 MG Tablet TAKE 1 TABLET BY MOUTH EVERY DAY NEEDED Not-Taking/PRN SUMAtriptan Succinate 100 Tablet TAKE 1 TABLET BY MOUTH DAILY Medication List reviewed and reconciled with the patient * Allergies: M orphine Sulfate: cardiac arrestLisinopril: rashRizatriptan Benzoate: rash Objective: * Vitals: H t: 75, Wt: [...] entire visit. is doing better now * Procedure Codes: * Follow Up: s [facility] dec visit * * Sign off status: Completed true * Provider: Joel Almonte MD Date: 11/28/2024 Generated for Kamilah solis/Bharati/Krystinaitting on: 12/12/2024 08:37 PM EST History and [...]
--- OUTSIDE RECORDS SUMMARY | 2025-10-12 09:15 | XMS_ITS ---
Author Organization Luke Almonte MD Address [address] [place] [id number] Care Team Providers Care Crm Marketing Manager Name Role Phone Luke Almonte Primary Care Provider Allergies Allergen (clinical drug ingredient) Drug/Non Drug Allergy documented on EMR Reaction Allergy Type Onset Date Status rizatriptan Rizatriptan Benzoate rash Drug Allergy Active morphine Morphine Sulfate cardiac arrest Drug Allergy Active lisinopril Lisinopril rash Drug Allergy Activ e Results Component Value Reference Range Notes Urinalysis and Microscopic Reviewed date:10/12/2025 04:52:52 PM Interpretation: Performing Lab:[facility], [address] [place] [id number] Notes/Report: Color Urine Yellow Appearance Urine Cloudy PH 7.0 5.0-9.0 Glucose Urine UA Negative Negative mg/dL Urine Blood Small (1+) Negative Specific [place] - Urine 1.020 1.005-1.025 Urine Protein Trace Neg-Trace mg/dL Urine Ketones Negative Negative mg/dL Nitrite Urine Negative Negative Leukocyte Esterase Urine Large (3+) Negative RBC Urine 0-2 0-2 /HPF WBC Urine >50 0-5 /HPF Squamous Epithelial Cell Urine 0-2 0-2 /HPF Bacteria Urine 4+ None Seen Hyaline Casts Urine 0-2 0-2 /LPF REASON FOR VISIT requesting more antibiotics Medications Medication SIG (Take, Route, Frequency, Duration) Notes Start Date End Date Status Eletriptan Hydrobromide 40 MG 1 tablet Orally Once a day for 1 day(s) Not-Taking SUMAtriptan Succinate 100 TAKE 1 TABLET BY MOUTH DAILY for 9 Not-Taking Cephalexin 500 MG 1 capsule Orally twi ce a day for 10 days 10/12/2025 Active ProAir RespiClick 108 (90 Base) MCG/ACT 2 puffs as needed Inhalation every 6 hrs for 25 Not-Taking Relpax 40 MG TAKE 1 TABLET BY JYOTI TH EVERY DAY NEEDED for 12 Not-Taking Rizatriptan Benzoate 5 MG 1 tablet [...] Once a day for 90 days Not-Taking Cephalexin 500 MG 1 capsule Orally iman ry 6 hrs Not-Taking valACYclovir HCl 1 GM TAKE 1 TABLET BY M OUTH TWICE DAILY FOR 5 DAYS for 5 Not-Taking Verapamil HCl ER 240 MG TAKE 1 TABLET ON CE A DAY for 90 Active Escitalopram Oxalate 10 MG TAKE 1 TABLET BY MOUTH EVERY DAY IN THE MORNING for 90 Active Omeprazole 20 MG TAKE 1 CAPSULE ONCE DAILY for 90 Active Triamcinolone Acetonide 0.5 % 1 application Externally Two times a Week for 30 days 08/15/2021 Active Triamcinolone Acetonide 0.1 % 1 application [...] Once a day for 30 day(s) Active Vitamin B2 Active Tamsulosin HCl 0.4 MG 1 capsule Orally O nce a day Active Nurtec 75 MG 1 tablet on the tong ue and allow to dissolve Orally Active metroNIDAZOLE 500 MG 1 tablet Orally Thr ee times a day Active Vital Signs Blood pressure systolic 90 mm Hg 10/12/20 Blood pressure diastolic 60 mm Hg 025 Height 75 in 10/12/2025 Weight 222 lbs 10/12/2025 BMI 27.75 kg/m2 10/12/2025 Encounters Encounter Location Date Provider Diagnosis Luke Almonte MD [address] [place] [phone] 10/12/2025 Luke Almonte UTI (urinary tract infection) N39.0 Assessments Encounter Date Diagnosis (ICD Code) Assessment Notes Treatment Notes Treatment Clinical Notes Section Notes 10/12/2025 UTI (urinary tract infection) (ICD-10 - N39.0) Plan Of Treatment Medication Medication Name Sig Start Date Stop Date Notes Cephalexin 500 MG 1 capsule Orally twice a day for 10 days 10/12/2025 Pending Test Test Name Order Date Urine Culture 10/12/2025 Next Appt Details Provider Name:Luke schulte, 04/30/2026 07:15:00 AM, [address] [place] [address], [phone], Provider Name:Luke schulte, 05/07/2026 01:00:00 PM, [address] [place] [address], [phone], Progress Notes * Steve CABRAL VDOB:[birth year] (60 yo M)Acc No.[id number]:10/12/2025 Progress Notes Patient: Steve LIZAMA V Provider: Joel Almonte MD :1965 A ge:60 Y S ex:Male Date:10/12/2025 Address:[address] [place] [address] [place], [id number] Subjective: * Chief Complaints: * 1 . Requesting more antibiotics. * HPI: S ymptom(s): patient is a 60 yo male here said when he left hospidtal put on antibiotics. and dysuria resolved. requesting more antibiotics. * ROS: G eneral/Constitutional: Denies C hills. D enies F atigue. D enies F ever. D enies H eadache. E NT: Denies S ore throat. R espiratory: Denies C ough. D enies S hortness of breath at rest. D enies S hortness of breath with exertion. G astrointestinal: Denies A bdominal pain. A dmits D iarrhea. D enies N ausea. G enitourinary: Admits A bdominal pain/swelling. A dmits F requent urination. D enies P ain in lower back. A dmits P ainful urination. * Medical History: c olonoscopy discussed 2013; colonoscopy 06/23/16 w/Dr. Phillips (repeat 10 yrs) colonoscopy 2020 with tubular adenoma, colonoscopy 11/12 pending path repeat in 5 years, Dr milton. * Medications: T aking metroNIDAZOLE 500 MG Tablet 1 tablet Orally Three times a day , Taking Tamsulosin HCl 0.4 MG Capsule [...] dissolve Orally Once a day , Taking Triamcinolone Acetonide 0.1 % Cream [...] TAKE 1 CAPSULE ONCE DAILY , Not-Taking/PRN Cephalexin 500 MG Capsule 1 capsule Orally every 6 hrs , Not-Taking/PRN valACYclovir HCl 1 GM Tablet TAKE 1 TABLET BY MOUTH TWICE DAILY FOR 5 DAYS , Not-Taking/PRN Rizatriptan Benzoate 5 MG Tablet [...] Objective: * Vitals: H t: 75, Wt: 222, BMI:27.75, BP:90/60, Wt-k.7. * Examination: G eneral Examination: GENERAL APPEARANCE: a lert, well hydrated, in no distress.? HEAD: n ormocephalic. SKIN: g ood turgor. HEART: r egular rate and rhythm, no murmurs, rubs, gallops.? LUNGS: n o wheezes, rales, rhonchi, clear to auscultation bilaterally. ABDOMEN: s oft, nontender, nondistended, no rebound tenderness, no organomegaly. BACK: n o costovertebral angle tenderness. Assessment: * Assessment: 1. U TI (urinary tract infection) - N39.0 (Primary) Plan: * Treatment: * * The named appointment provid er may or may not be the originator of this progress note, and it is not deemed complete until electronically signed by the appointment provider. Sign off status: Pending * Provider: Joel Almonte MD Date: 12/12/2024 Generated for Kamilah solis/Bharati/Alistairsmitting on: 12/12/2024 08:38 PM EST History and Physical Notes * HPI (History of Present Illness) Category Sub-Category Detail Notes Category Not es Symptom(s) patient is a 60 yo male here said when he left hospidtal put on antibiotics. and dysuria resolved. requesting more antibiotics Examination Category Sub-Category Detail Notes Category Not es General Examination GENERAL APPEARANCE: alert, w ell hydrated, in no distress HEAD: normocephalic HEART: regular rate and rhy thm, no murmurs, rubs, gallops LUNGS: no wheezes, rales, r honchi, clear to auscultation bilaterally ABDOMEN: soft, nontender, non distended, no rebound tenderness, no organomegaly SKIN: good turgor BACK: no costovertebral an gle tenderness
[2025-10-12 15:41] LABS: Appearance Urine Cloudy; Glucose Urine UA Negative (Negative); PH 7.0 (5.0-9.0); Specific Gravity - Urine 1.020 (1.005-1.025); UMIC TRIGGER UA YES
--- OUTSIDE RECORDS SUMMARY | 2025-10-12 20:37 | XMS_ITS | Clinical Summary ---
Author Organization [facility] Address [address] [facility] [address] [place] [address] Phone Care Team Providers Care Ad Operations Specialist Name Role Phone Luke Almonte MD Primary [...] EDT) SODIUM 140 133 - 146 mmol/L [facility] CHLORIDE 105 96 - 108 mmol/L [facility] POTASSIUM 3.8 3.3 - 5.1 mmol/L [facility] CO2 22 21 - 35 mmol/L [facility] BUN 19 6 - 19 mg/dL [facility] CREATININE 1.20 0.5 - 1.5 mg/dL [facility] GLUCOSE 84 70 - 99 mg/dL [facility] CALCIUM 9.3 8.4 - 10.3 mg/dL [facility] EGFR 70 >59 mL/min/1.7 3m2 [facility] Comment:Estimated glomerular filtration rate calculated using the CKD-EPI refit equation. ANION GAP 17 10 - 20 mmol/L [facility] Blood 02/24/2023 2:36 PM EDT 02/24/2023 2:39 PM EDT us Ye Vergara MD LAB BLOOD BKR ORDERABLES Sakshi l Result [facility] [address] [place] [address] from Last 3 Months or Most Recently Relevant to Health Maintenance Insurance [employer] HMO POS EPO Member Subscriber Plan / Payer (Ef fective 1995-Present) Name:Steve Cabral Relation to Subscriber:Self Name:Steve Cabral Payer ID:[id number] (NA) Type:HMO Address: [address] [facility] [place] [address] [address] [facility] O POS EPO Member Subscriber Plan / Payer (Ef fective 1995-Present) Name:Steve Cabral Relation to Subscriber:Self Name:Steve Cabral Payer ID:[id number] (NA) Type:HMO Address: [address] HMO O [facility] [place] [place] [address] HMO [employer] HMO POS EPO HMO Care Teams Ad Operations Specialist Relationship Specialty Start Date End Date Luke Almonte MD [address] [place] [address] [place] [address] PCP - General Internal Medicine 08/03/20 Additional Source Comments The information contained in this document represents components of the legal health record. It is not the complete legal health record.[facility]
--- OUTSIDE RECORDS SUMMARY | 2025-10-12 20:39 | XMS_ITS | Encounter Summary ---
Author Organization [facility] Address [address] [facility] [address] [place] [address] Phone Care Team Providers Care Endoscopy Specialty Technician Name Role Phone Luke Almonte MD Primary Care Provider Encounter Details Date Type Department Care Team (Late st Contact Info) Description 02/24/2023 Procedure Pass [facility], Ct Scan - [address] [address] Social History Tobacco Use Types Packs/Day Years [...] 1:58 PM EDT Lary Gardner, RN * [place] Suicide Severity Rating Scale (Screener/Recent Self-Report) Question [...] documented as of this encounter Care Teams Endoscopy Specialty Technician Relationship Specialty Start Date End Date Luke Almonte MD [address] [place] [address] [place] [address] PCP - General Internal Medicine 08/03/20 documented as of this encounter Additional Source Comments The information contained in this document represents components of the legal health record. It is not the complete legal health record.[facility]
--- OUTSIDE RECORDS SUMMARY | 2025-10-12 20:39 | XMS_ITS | Patient Health Record ---
Author Organization Luke Almonte MD Address [address] [place] [phone] Care Team Providers Care Watch Supervisor Name Role Phone Luke Almonte Primary Care Provider Allergies Allergen (clinical drug ingredient) Drug/Non Drug Allergy documented on EMR Reaction Allergy Type Onset Date Status rizatriptan Rizatriptan Benzoate rash Drug Allergy Active morphine Morphine Sulfate cardiac arrest Drug Allergy Active lisinopril Lisinopril rash Drug Allergy Activ e Results Component Value Reference Range Notes PSA,Total (Free>4and<10) Reviewed date:10/31/2024 12:49:34 PM Interpretation: Performing Lab:[facility], [address] [place] [phone] Notes/Report: PSA,Total (Free>4and<10) 0.38 0.00-4.00 ng/mL A [...] ff Reviewed date:04/24/2025 02:09:51 PM Interpretation: Performing Lab:[facility], [address] [place] [phone] Notes/Report: White Blood Count 5.5 4.8-10.8 X10*3/uL [...] Panel Reviewed date:04/24/2025 11:50:23 AM Interpretation: Performing Lab:[facility], [address] [place] [phone] Notes/Report: Bilirubin Total 0.5 0.0-1.0 mg/dL Bilirubin Direct 0.2 0.0-0.5 mg/dL Aspartate Amino Transferase 40 5-37 U/L Alanine Aminotransferase 53 0-40 U/L Total Protein 7.0 6.5-8.0 g/dL Albumin Level 4.5 3.5-5.0 g/dL Alkaline Phosphatase 69 39-117 U/L Lipid Panel Reviewed date:04/24/2025 11:50:11 AM Interpretation: Performing Lab:[facility], [address] [place] [phone] Notes/Report: Triglycerides 106 <150 mg/dL Desirable Triglyceride: [...] (Free>4and<10) Reviewed date:04/24/2025 11:50:01 AM Interpretation: Performing Lab:[facility], [address] [place] [phone] Notes/Report: PSA,Total (Free>4and<10) 0.75 0.00-4.00 ng/mL A [...] Random Reviewed date:04/24/2025 12:50:53 PM Interpretation: Performing Lab:[address] [phone] Notes/Report: Creatinine Urine 258.98 Microalbumin Urine 12.0 Microalbum/Creatinine Ratio Ur 4.6 <30 ug/mg cr Albumin/Creatinine Ratio Reference Ranges: Normal: < 30 ug/mg creatinine Microalbuminuria: 30 - 300 ug/mg creatinine Clinical Albuminuria: > 300 ug/mg creatinine Hemoglobin A1c Reviewed date:04/24/2025 11:49:46 AM Interpretation: Performing Lab:[address] [phone] Notes/Report: Hemoglobin A1c % 5.2 <6.0 % [...] average glucose, using the formula of the O4X-Mfvhime Average Glucose study (ADAG), Diabetes Care, Vol.31,#8, Jun. 2007 UA ClnCatch+Micro w/rflx Cul t Reviewed date:04/24/2025 04:31:47 PM Interpretation: Performing Lab:[address] [phone] Notes/Report: Urine, Clean Catch Color Urine Dark Yellow Appearance Urine Clear PH 6.5 5.0-9.0 Glucose Urine UA Negative Negative mg/dL Urine Blood Negative Negative Specific Maribel - Urine 1.025 1.005-1.025 Urine Protein Negative Neg-Trace mg/dL Urine Ketones Trace Negative mg/dL Nitrite Urine Negative Negative Leukocyte Esterase Urine Trace Negative RBC Urine 0-2 0-2 /HPF WBC Urine 0-5 0-5 /HPF Squamous Epithelial Cell Urine 0-2 0-2 /HPF Bacteria Urine None Seen None Seen Hyaline Casts Urine 0-2 0-2 /LPF Comprehensive [place]. Panel Fa st Reviewed date:07/03/2025 06:01:40 PM Interpretation: Performing Lab:[address] [phone] Notes/Report: Sodium 142 135-145 mmol/L Potassium 4.0 [...] 3.5-5.0 g/dL Alkaline Phosphatase 75 39-117 U/L Urinalysis and Microscopic Reviewed date:10/12/2025 04:52:52 PM Interpretation: Performing Lab:[facility], [address] [place] [phone] Notes/Report: Color Urine Yellow Appearance Urine Cloudy PH 7.0 5.0-9.0 Glucose Urine UA Negative Negative mg/dL Urine Blood Small (1+) Negative Specific Maribel - Urine 1.020 1.005-1.025 Urine Protein Trace Neg-Trace mg/dL Urine Ketones Negative Negative mg/dL Nitrite Urine Negative Negative Leukocyte Esterase Urine Large (3+) Negative RBC Urine 0-2 0-2 /HPF WBC Urine >50 0-5 /HPF Squamous Epithelial Cell Urine 0-2 0-2 /HPF Bacteria Urine 4+ None Seen Hyaline Casts Urine 0-2 0-2 /LPF Occult Blood, Stool, Guaiac Reviewed date:05/01/2025 04:02:03 PM Interpretation:Negative Performing Lab: Notes/Report: Negative Occult Blood, Stool, Guaiac Neg Urinalysis and Microscopic Reviewed date:09/28/2025 03:34:49 PM Interpretation: Performing Lab:[facility], [address] [place] [phone] Notes/Report: Color Urine Yellow Appearance Urine Clear PH 7.0 5.0-9.0 Glucose Urine UA Negative Negative mg/dL Urine Blood Negative Negative Specific Maribel - Urine 1.010 1.005-1.025 Urine Protein Negative [...] ff Reviewed date:09/21/2025 12:18:46 PM Interpretation: Performing Lab:[facility], [address] [place] [phone] Notes/Report: White Blood Count 15.7 4.8-10.8 X10*3/uL [...] NRBC Abs Auto 0.000 0.0-0.012 X10*3/uL Comprehensive Met. Panel Reviewed date:09/21/2025 07:16:42 PM Interpretation: Performing Lab:[facility], [address] [place] [phone] Notes/Report: Sodium 137 135-145 mmol/L Potassium 3.9 [...] 3.5-5.0 g/dL Alkaline Phosphatase 74 39-117 U/L Urine Culture Reviewed date:09/25/2025 12:02:55 PM Interpretation: Performing Lab:[facility], [address] [place] [phone] Notes/Report: O:ESCCOL Escherichia coli Urine Culture Quant Urine Culture 10,000 to 50,000 cfu/mL Ampicillin >=32 Cefazolin (Urine) 4 Cefepime <=0.12 Ceftriaxone <=0.25 Ciprofloxacin <=0.06 Gentamicin <=1 Nitrofurantoin <=16 Trimethoprim/Sulfamethox azole <=20 UA ClnCatch+Micro w/rflx Cul t Reviewed date:09/21/2025 07:21:16 PM Interpretation: Performing Lab:[facility], [address] [place] [phone] Notes/Report: [id number] Urine, Clean Catch Color Urine Yellow Appearance Urine Cloudy PH 6.5 5.0-9.0 Glucose Urine UA Negative Negative mg/dL Urine Blood Large (3+) Negative Specific Maribel - Urine 1.015 1.005-1.025 Urine Protein 100 (2+) Neg-Trace mg/dL Urine Ketones Trace Negative mg/dL Nitrite Urine Positive Negative Leukocyte Esterase Urine Large (3+) Negative RBC Urine 11-20 0-2 /HPF WBC Urine >50 0-5 /HPF WBC Clumps Urine Present Squamous Epithelial Cell Urine 0-2 0-2 /HPF Bacteria Urine Trace None Seen Hyaline Casts Urine 0-2 0-2 /LPF CT abdomen pelvis w con Reviewed date:09/21/2025 05:11:16 PM Interpretation: Performing Lab: Notes/Report: [address] [address] [address] Scan Report Signed Patient: Steve Cabral III MR#: [id number] : 1965 Acct:[id number] Age/Sex: 60 / M ADM Date: 09/21/25 Loc: HO.ED Attending Dr: Ordering Physician: Donny Parar Date of Service: 09/21/25 Procedure(s): CT abdomen pelvis w IV con Accession Number(s): [id number] cc: Donny Parra; Luke Almonte MD Report Number: [id number]: Total DLP = 696.00 mGy-cm Reason for [...] 09/21/25 1338 DD/ 1308 TD/TT: 09/21/25 1320 Fabrication Inspector: [place] [address] CT Scan Report Signed Patient: Allen Cabral ce III MR#: [id number] : 1965 Acct:[id number] Age/Sex: 60 / M ADM Date: 09/21/25 Loc: .ED Attending Dr: Ordering Physician: Donny Parra Date of Service: 09/21/25 Procedure(s): CT abd omen pelvis w IV con Accession Number(s): [id number] cc: Donny Parra; Luke Almonte MD Report [...] 01:38 PM EDT RP Dictated By: Adriel Marshall MD Signed By: <Electronically signed by Adriel Crockett MD in OV> 09/21/25 1338 DD/ 1308 TD/TT: 09/21/25 1320 Fabrication Inspector: Complete Blood Count Auto Di ff Reviewed date:09/22/2025 11:30:06 AM Interpretation: Performing Lab:[facility], [address] [place] [phone] Notes/Report: White Blood Count 6.6 4.8-10.8 X10*3/uL Red Blood Count 3.60 4.60-5.80 X10*6/uL Hemoglobin 11.3 14.0-18.0 g/dl Hematocrit 33.3 42.0-52.0 % Mean Corpuscular Volume 92.5 80.0-98.0 fL Mean Corpuscular Hemoglobin 31.4 27.0-33.0 pg Mean Corpuscular HGB Conc 33.9 31.0-36.0 g/dl Red Cell Distribution Width 13.4 11.0-16.0 % Platelet Count 141 160-400 X10*3/uL Mean Platelet Volume 9.0 9.4-12.4 fL Neutrophils Percent Auto 71.5 45-73 % Imm Gran Pct Auto 0.3 0.0-0.4 % Lymphocytes Percent Auto 18.1 20-40 % Monocytes Percent Auto 7.8 2-11 % Eosinophils Percent Auto 2.0 0-4 % Basophils Percent Auto 0.3 0-2 % NRBC Pct Auto 0.0 0.0-0.2 /100WBC Neutrophils Absolute Auto 4.7 2.0-8.3 x10*3/uL Imm Gran Abs Auto 0.02 0.00-0.03 X10*3/uL Lymphocytes Absolute Auto 1.2 1.2-4.9 X10*3/uL Monocytes Absolute Auto 0.5 0.1-1.2 X10*3/uL Eosinophils Absolute Auto 0.1 0.0-0.4 X10*3/uL Basophils Absolute Auto 0.0 0.0-0.2 X10*3/uL NRBC Abs Auto 0.000 0.0-0.012 X10*3/uL Basic Metabolic Panel Reviewed date:09/22/2025 11:29:40 AM Interpretation: Performing Lab:[facility], [address] [place] [phone] Notes/Report: Sodium 138 135-145 mmol/L Potassium 3.8 3.3-5.1 mmol/L Chloride 107 96-108 mmol/L Carbon Dioxide 26 22-29 mmol/L Anion Gap 9 12-20 Blood Urea Nitrogen 12 9-16 mg/dL Creatinine 0.84 0.5-1.4 mg/dL Creatinine Clr Calc Pharmacy 117.1 eGFR (calculated from the MDRD study equation) and eCrCl (calculated from the Cockcroft-Gault equation) are based on different parameters and may not yield comparable results. If eCrCl result is absurd, please check patient's height/weight. Estimated Glomerular Filt Rate > 60 Chronic Kidney Disease: Estimated GFR < 60 mL/min/1.73m2 Severe Kidney Disease: Estimated GFR < 15 mL/min/1.73m2 Glucose Random 111 60-115 mg/dL Calcium 8.2 8.4-10.2 mg/dL Reason For Referral No Information Medications Medication SIG (Take, Route, Frequency, Duration) Notes Start Date End Date Status SUMAtriptan Succinate 100 TAKE 1 TABLET BY MOUTH DAILY for 9 Not-Taking Cephalexin 500 MG 1 capsule Orally twi ce a day for 10 days 10/12/2025 Active Verapamil HCl ER 240 MG TAKE 1 TABLET ON CE A DAY for 90 Active ProAir RespiClick 108 (90 Base) MCG/ACT 2 puffs as needed Inhalation every 6 hrs for 25 Not-Taking Relpax 40 MG TAKE 1 TABLET BY JYOTI TH EVERY DAY NEEDED for 12 Not-Taking Vitamin B2 Active Rizatriptan Benzoate 5 MG 1 tablet Orall y Once a day for 1 day(s) Not-Taking Triamcinolone Acetonide 0.5 % 1 application Externally Two times a Week for 30 days 08/15/2021 Active Naratriptan HCl 2.5 MG 1 tablet Orally O nce a day for 1 day(s) Not-Taking Tamsulosin HCl 0.4 MG 1 capsule Orally O nce a day Active Cephalexin 500 MG 1 capsule Orally iman ry 6 hrs Not-Taking Nurtec 75 MG 1 tablet on the tong ue and allow to dissolve Orally Active valACYclovir HCl 1 GM TAKE 1 TABLET BY M OUTH TWICE DAILY FOR 5 DAYS for 5 Not-Taking Triamcinolone Acetonide 0.1 % 1 application Externally Two times a Week for 10 days 08/23/2024 Active Cyclobenzaprine HCl 10 MG TAKE 1/2 TABLE T BY MOUTH EVERY DAY AT BEDTIME for 60 Not-Taking Ketoconazole 2 % 1 application Externally Once a day for 14 days 10/17/2024 Active Eletriptan Hydrobromide 40 MG 1 tablet Orally Once a day for 1 day(s) Not-Taking Aspir-Low 81 MG 1 tablet Orally Once a day for 30 day(s) 03/16/2023 Active Topamax 50 MG 50mg mg PM Orally twice a day Not-Taking Ondansetron 4 MG 1 tablet on the tong ue and allow to dissolve Orally Once a day for 30 day(s) Active Potassium Chloride ER 8 MEQ take 1 tablet by mouth every day with food Orally Once a day for 90 days Not-Taking Escitalopram Oxalate 10 MG TAKE 1 TABLET BY MOUTH EVERY DAY IN THE MORNING for 90 Active metroNIDAZOLE 500 MG 1 tablet Orally Thr ee times a day Active Omeprazole 20 MG TAKE 1 CAPSULE ONCE DAILY for 90 Active Immunizations Vaccine Route Administration Date Status Comme nts Flu Vaccine IM Intramuscular 08/02/2012 Administered TDaP IM Intramuscular 03/25/2013 Administered Flu Vaccine IM Intramuscular 07/29/2013 Administered Flu Vaccine IM Intramuscular 09/29/2014 Administered Fluarix Quadrivalent IM Intramuscular 08/13/2015 Administe red Fluarix Quadrivalent Unknown 09/02/2016 Administered At work Fluarix Quadrivalent IM Intramuscular 08/28/2017 Administe red Shingrix IM Intramuscular 07/30/2018 Administered Shingrix IM Intramuscular 09/28/2018 Administered Fluarix Quadrivalent IM Intramuscular 10/05/2018 Administe red Tetanus Unknown 03/25/2013 Administered PPSV23 (Pnemovax) IM Intramuscular 02/01/2019 Administered Fluarix Quadrivalent IM Intramuscular 09/01/2019 Administannetta carr Prevnar 13 IM Intramuscular 07/10/2020 Administered SARS-COV-2 Pfizer Unknown 03/26/2021 Administered SARS-COV-2 Pfizer Unknown 03/05/2021 Administered Fluarix Quadrivalent IM Intramuscular 08/15/2021 Administe red SARS-COV-2 Pfizer Unknown 09/28/2021 Administered Fluarix Quadrivalent IM Intramuscular 09/08/2022 Administe red TDaP Unknown 12/05/2022 Administered SARS-COV-2 Pfizer Unknown 12/05/2022 Administered Fluarix Quadrivalent IM Intramuscular 07/31/2023 Administe red Fluarix Quadrivalent - 150 IM Intramuscular 08/23/2024 [...] Problem Status W/U Status Risk Notes Problem 89922664 Hypokalemia (E87.6) Active confirmed Problem 478025049 Reflux esophagit is (K21.00) Active confirmed Problem Diverticulitis (19914874) Diverticulitis (K57.92) Active confirmed Problem 957893838 Anemia in other chronic diseases classified elsewhere (D63.8) Active confirmed Problem 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 Problem 60056330 Nonalcoholic steatohepatitis (VÁZQUEZ) (K75.81) Active confirmed Problem Kidney stone (36578619) Kidney stone (N20.0) Active confirmed Problem 914933642 Gastroesophageal reflux disease without esophagitis (K21.9) Active confirmed Problem 91630973 Essential hypertension (I10) Active confirmed Problem 5932262 Prediabetes (R73.09) Active confirmed Problem 976739168 Migraine without aura and with status migrainosus, not intractable (G43.001) Active confirmed Problem 63423085 ZABRINA (obstructive sleep apnea) (G47.33) Active confirmed Problem 076727438 Mild intermitten t asthmatic bronchitis with acute exacerbation (J45.21) Active confirmed Problem 538731666 Diverticular disease (K57.90) Active confirmed Problem 64305091 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 Problem 031633575 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 Vital Signs Blood pressure diastolic 60 mm Hg 10/12/2025 Height 75 in 10/12/2025 Blood pressure systolic 90 mm Hg 10/12/2025 Weight 222 lbs 10/12/2025 BMI 27.75 kg/m2 10/12/2025 Encounters Encounter Location Date Provider Diagnosis Luke Almonte MD [address] [place] [id number] 10/31/2024 Luke Almonte Rising PSA level R97 .20 Luke Almonte MD [address] [place] [id number] 04/24/2025 Luke Almonte Blood tests for rout ine general physical examination Z00.00 ; Prediabetes R73.09 ; Nonalcoholic steatohepatitis (VÁZQUEZ) K75.81 and Anemia in other chronic diseases classified elsewhere D63.8 Luke Almonte MD [address] [place] [id number] 07/03/2025 Luke Almonte Elevated LFTs R79.89 Luke Almonte MD [address] [place] [id number] 10/12/2025 Luke Almonte UTI (urinary tract infection) N39.0 Luke Almonte MD [address] [place] [id number] 10/17/2024 Luke Almonte Jock itch B35.6 Luek Almonte MD [address] [place] [address] [id number] 11/01/2024 Luke Almonte Rising PSA level R97 .20 and Fungal infection B49 Luke Almonte MD [address] [place] [id number] 05/01/2025 Luke Almonte Annual physical exam Z00.00 ; Elevated LFTs R79.89 ; Prediabetes R73.09 ; Essential hypertension I10 ; Gastroesophageal reflux disease without esophagitis K21.9 ; Colon cancer screening Z12.11 and Depression screening Z13.31 Luke Almonte MD [address] [place] [address] [id number] 09/21/2025 Luke Almonte Urinary retention R3 3.9 and Diverticulitis K57.92 Luke Almonte MD [address] [place] [id number] 09/28/2025 Luke Almonte Hematuria R31.9 and Kidney stone N20.0 Luke Almonte MD [address] [place] [address] [id number] 11/01/2024 Luke Almonte Rising PSA level R97 .20 Luke Almonte MD [address] [place] [address] [id number] 06/29/2025 Luke Almonte MD [address] [place] [id number] 09/22/2025 Luke Almonte Assessments Encounter Date Diagnosis (ICD Code) Assessment Notes Treatment Notes Treatment Clinical Notes Section Notes 10/31/2024 Rising PSA level (ICD-10 - R97.20) 04/24/2025 Blood tests for routine general physical examination (ICD-10 - Z00.00) 07/03/2025 Elevated LFTs (ICD-10 - R79.89) 10/12/2025 UTI (urinary tract infection) (ICD-10 - N39.0) 10/17/2024 Jock itch (ICD-10 - B35.6) patient [...] will continue to monitor, future labs pending 09/21/2025 Urinary retention (ICD-10 - R33.9) may be the cause of all his pain 09/21/2025 Diverticulitis (ICD-10 - K57.92) needs hopital send to er feels he can walk 09/28/2025 Hematuria (ICD-10 - R31.9) pending lab 09/28/2025 Kidney stone (ICD-10 - N20.0) seems likely that it was the cause of the entire visit. is doing better now 11/01/2024 Rising PSA level (ICD-10 - R97.20) [...] 03/04/2013 MRI LUMBAR SPINE NO CONTRAST 11/27/2023 Urine Culture 10/12/2025 Next Appt Details Provider Name:Luke hayesr, 04/30/2026 07:15:00 AM, [address] [place] [address], [place] [address], [place], [place], [phone], Provider Name:Luke Schafer ier, 05/07/2026 01:00:00 PM, [address] [place] [address], [address], [place], [place], [phone], Insurance Providers Payer Name Payer Address Payer Phone Subscriber Number Group Number Insured Name Patient Relationship to Insured Coverage Start Date Coverage End Date [employer] [facility] [address] [place] [address] [id number] Steve Ruiz Self - patient is the [address] [facility] [phone] [id number] Jorge L Cabralurice Self - patient is the insured Medications [...]
--- OUTSIDE RECORDS SUMMARY | 2025-10-12 20:39 | XMS_ITS | Patient Health Record ---
Author Organization [facility] Address [address] [place] [address] Care Team Providers Care Certified Pesticide Applicator Name Role Phone Luke Almonte MD Primary Care Provider Lucas Monaco Jr [phone] Allergies Allergen (clinical drug ingredient) Drug/Non Drug Allergy documented on EMR Reaction Allergy Type Onset Date Status Seafood seafood (uncoded) Unknown Allergy Ac tive morphine Morphine Unknown Drug Allergy Active Reason For Referral No Information Medications Medication SIG (Take, Route, Frequency, Duration) Notes Start Date End Date Status Omeprazole 40 MG Capsule Delayed Release 1 capsule 30 minutes before morning meal Orally Once a day; Duration: 30 day(s) Active Topamax 100 MG Tablet 1 tablet Orally On ce a day; Duration: 30 day(s) Active Verapamil HCl ER 240 MG Tablet Extended Release 1 tablet Orally Once a day; Duration: 30 day(s) Active MiraLax (colon prep) 17 GM/SCOOP Powder mixed with Gatorade or Crystal Light Orally begin at 5:00 p.m. the day before the procedure; Duration: 1 day 10/16/2021 Active Vitamin D 50 MCG (2000 UT) Tablet 1 tablet Orally Once a day; Duration: 30 day(s) Active potassium 1 tab Oral; Duration : 14 days Active B12 Fast Dissolve 5000 MCG Tablet Disintegrating as directed Orally Active Vitamin B + C Complex - Tablet as directed Orally Active Immunizations Vaccine Route Administration Date Status Comme nts Influenza Unknown 10/04/2021 Administered Social History Tobacco Use: Social History Observation Description Date Details (start date - stop date) Never Smoker NA - NA Social History Drugs/Alcohol: Social Info Question Answer Notes Alcohol Screen Did you have a drink containing alcohol in the past year? No Points 0 Interpretation Negative Tobacco Use: Social Info Question Answer Notes Tobacco Use/Smoking Patient is a nonsmoker Additional Details Category Social Info Options Details Miscellaneous: Marital status: single Occupation: works full-time Problems Problem Type SNOMED Code ICD Code Onset Dates Problem Status W/U Status Risk Notes Problem Gastroesophageal reflux disease (486364809) Gastroesophageal reflux disease (K21.9) Active confirmed Problem Anemia (672620524) Anemia, unspecified type (D64.9) Active confirmed Problem Altered bowel function (69629772) Change in bowel function (R19.8) Active confirmed Problem Gastroesophageal reflux disease (721442236) Gastroesophageal reflux disease, unspecified whether esophagitis present (K21.9) Active confirmed Plan Of Treatment Future Test Test Name Order Date UPPER GI ENDOSCOPY 10/16/2021 COLONOSCOPY 10/16/2021 Insurance Providers Payer Name Payer Address Payer Phone Subscriber Number Group Number Insured Name Patient Relationship to Insured Coverage Start Date Coverage End Date [facility] [address] [place], [place] [id number] ARMANDO Self - patient is the insured Medical (General) History Medical History History ICD Code Hypertension Migraine headaches Gastroesophageal reflux disease Temporal arteritis Fatty liver Obstructive sleep apnea Colonoscopy 2016, ten-year followup ivan mmended, Dr. Phillips Diverticular disease Surgical History Surgery Date(Month/Year) Sigmoid resection 04/2001 Temporal artery biopsy 08/2020
--- OUTSIDE RECORDS SUMMARY | 2025-10-12 20:39 | XMS_ITS | Data Portability ---
Author Organization JORGE L - Laureano Leone Arbreann [facility], [facility] Address [address] [place] [address] Care Team Providers Care Mash Processing Operator Name Role Phone VICKI RIVERA Primary Care [...] knee, w/o contrast - mmt 2023 024 [facility] ([facility] [address], [place], [address], 13:42:34 Medication Orders None recorded. Patient TargetsNo targets recorded. Patient InstructionsNo instructions recorded. Reason for Referral None Reported. Results Created Date Observation Date Name Description Value Unit Range Abnormal Flag Note LastModifiedBy Organization Detail LastModifiedTime 03/28/20 24 03/29/2024 CBC WITH DIFFE RENTI AL/PL ATELE T WBC 5.9 x10e3 /uL 3.4-10 .8 Not Available [facility] ([facility]) [address] [facility], [place], [address], 03/29/2024 14:06:53 03/28/20 24 03/29/2024 CBC WITH DIFFE RENTI AL/PL ATELE T RBC 4.35 x10e6 /uL 4.14-5 .80 Not Available [facility] ([facility]) [address] [place], [address], 03/29/2024 14:06:53 03/28/20 24 03/29/2024 CBC WITH DIFFE RENTI AL/PL ATELE T hemoglobin 13.8 g/dL 13.0-1 7.7 Not Available [facility] ([facility]) [address] [place], [address], 03/29/2024 14:06:53 03/28/20 24 03/29/2024 CBC WITH DIFFE RENTI AL/PL ATELE T hematocrit 39.8 % 37.5-5 1.0 Not Available [facility] ([facility]) [address] [place], [address], 03/29/2024 14:06:53 03/28/20 24 03/29/2024 CBC WITH DIFFE RENTI AL/PL ATELE T MCV 92 fL 79-97 Not Available [facility] ([facility]) [address] [place], [address], 03/29/2024 14:06:53 03/28/20 24 03/29/2024 CBC WITH DIFFE RENTI AL/PL ATELE T MCH 31.7 pg 26.6-3 3.0 Not Available [facility] ([facility]) [address] [facility], [place], [address], 03/29/2024 14:06:53 03/28/20 24 03/29/2024 CBC WITH DIFFE RENTI AL/PL ATELE T MCHC 34.7 g/dL 31.5-3 5.7 Not Available [facility] ([facility]) [address] [facility], [place], [address], 03/29/2024 14:06:53 03/28/20 24 03/29/2024 CBC WITH DIFFE RENTI AL/PL ATELE T RDW 13.0 % 11.6-1 5.4 Not Available [facility] ([facility]) [address] [facility], [place], [address], 03/29/2024 14:06:53 03/28/20 24 03/29/2024 CBC WITH DIFFE RENTI AL/PL ATELE T platelets 235 x10e3 /uL 150-45 0 Not Available [facility] ([facility]) [address] [facility], [place], [address], 03/29/2024 14:06:53 03/28/20 24 03/29/2024 CBC WITH DIFFE RENTI AL/PL ATELE T neutrophils 57 % not estab. Not Available [facility] ([facility]) [address] [facility], [place], [address], 03/29/2024 14:06:53 03/28/20 24 03/29/2024 CBC WITH DIFFE RENTI AL/PL ATELE T lymphs 31 % not estab. Not Available [facility] ([facility]) [address] [facility], [place], [address], 03/29/2024 14:06:53 03/28/20 24 03/29/2024 CBC WITH DIFFE RENTI AL/PL ATELE T monocytes 7 % not estab. Not Available [facility] ([facility]) [address] [facility], [place], [address], 03/29/2024 14:06:53 03/28/20 24 03/29/2024 CBC WITH DIFFE RENTI AL/PL ATELE T eos 4 % not estab. Not Available [facility] ([facility]) [address] [facility], [place], [address], 03/29/2024 14:06:53 03/28/20 24 03/29/2024 CBC WITH DIFFE RENTI AL/PL ATELE T basos 1 % not estab. Not Available [facility] ([facility]) [address] [facility], [place], [address], 03/29/2024 14:06:53 03/28/20 24 03/29/2024 CBC WITH DIFFE RENTI AL/PL ATELE T immature cells FOURTH OFFICER Not Available [facility] ([facility]) [address] [place], [address], 03/29/2024 14:06:53 03/28/20 24 03/29/2024 CBC WITH DIFFE RENTI AL/PL ATELE T neutrophils (absolute) 3.4 x10e3 /uL 1.4-7. 0 Not Available [facility] ([facility]) [address] [facility], [place], [address], 03/29/2024 14:06:53 03/28/20 24 03/29/2024 CBC WITH DIFFE RENTI AL/PL ATELE T lymphs (absolute) 1.8 x10e3 /uL 0.7-3. 1 Not Available [facility] ([facility]) [address] [place], [address], 03/29/2024 14:06:53 03/28/20 24 03/29/2024 CBC WITH DIFFE RENTI AL/PL ATELE T monocytes(ab solute) 0.4 x10e3 /uL 0.1-0. 9 Not Available [facility] ([facility]) [address] [facility], [place], [address], 03/29/2024 14:06:53 03/28/20 24 03/29/2024 CBC WITH DIFFE RENTI AL/PL ATELE T eos (absolute) 0.2 x10e3 /uL 0.0-0. 4 Not Available [facility] ([facility]) [address] [facility], [place], [address], 03/29/2024 14:06:53 03/28/20 24 03/29/2024 CBC WITH DIFFE RENTI AL/PL ATELE T baso (absolute) 0.0 x10e3 /uL 0.0-0. 2 Not Available [facility] ([facility]) [address] [facility], [place], [address], 03/29/2024 14:06:53 03/28/20 24 03/29/2024 CBC WITH DIFFE RENTI AL/PL ATELE T immature granulocytes 0 % not estab. Not Available [facility] ([facility]) [address] [facility], [place], [address], 03/29/2024 14:06:53 03/28/20 24 03/29/2024 CBC WITH DIFFE RENTI AL/PL ATELE T immature grans (abs) 0.0 x10e3 /uL 0.0-0. 1 Not Available [facility] ([facility]) [address] [facility], [place], [address], 03/29/2024 14:06:53 03/28/20 24 03/29/2024 CBC WITH DIFFE RENTI AL/PL ATELE T NRBC FOURTH OFFICER Not Available [facility] ([facility]) [address] [facility], [place], [address], 03/29/2024 14:06:53 03/28/20 24 03/29/2024 CBC WITH DIFFE RENTI AL/PL ATELE T hematology comments: FOURTH OFFICER Not Available [facility] ([facility]) [address] [facility], [place], [address], 03/29/2024 14:06:53 03/28/20 24 03/29/2024 URIC ACID uric acid 7.1 mg/dL 3.8-8. 4 Aki gusman t for gout patie nts: <6.0 Not Available [facility] ([facility]) [address] [facility], [place], [address], 03/29/2024 14:06:54 03/28/20 24 03/29/2024 SEDIM ENTAT ION RATE- WESTE RGREN sedimentatio n rate-westerg leo 7 mm/HR 0-30 Not Available [facility] ([facility]) [address] [facility], [place], [address], 03/29/2024 14:06:54 03/28/20 24 03/29/2024 C-DAVID CTIVE PROTE IN, QUANT C-reactive protein, quant 1 mg/L 0-10 Not Available [facility] ([facility]) [address] [facility], [place], [address], 03/29/2024 14:06:55 07/23/20 24 12/05/2023 imagi ng/di agnos tic resul t No observ ation record ed. 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 The patien t report s modera te to severe medial daily pain for a few years, ellallbobby solsi. Techni que: MRI of the right knee was perfor med withou t intrav enous contra st. Compar gurwinder: None. Findin gs: Joint effusi on: No joint effusi on is presen t. Hoffa' s fat pad is unrema rkable . There is a small Eason' s cyst with mild edema in the adjace nt soft tissue s, sugges ting partia l ruptur e. Menisc i: There is a radial ly orient ed tear in the social research assistant ior third of the medial menisc us near its social research assistant ior tibial attach ment with medial extrus ion of the body. Intram enisca l degene ration is seen in the remain marcos of the social research assistant ior third and body of the medial [...] Impres bereket: 1. Radial tear in the social research assistant ior tibial attach ment of the medial menisc us with medial extrus ion of the body. Intram enisca l degene ration is seen within the body and social research assistant ior third of the medial menisc us [...] ly Signed By: Lary Dale ra, MD [email or web address] [facility] ([facility]) [address], [place], [address], 09/02/2024 09:59:34 Result Notes Documentation Provider Name and Address Organization Details Recorded Time Mri, Knee, W/o Contrast : [facility] Accession Number: [id number] Patient Name: Steve Cabral Date of : 1965 Date of Exam: 08-31-2024 Referring Physician: Lui Batista [facility] ([facility]) [address], [address] [place] [address] Exam: MR Knee (C-) CPT 56111 - Right Room Description: [facility] 3.0T History: Unspecified internal derangement of [...] medial compartment. Electronically Signed By: Lary Lopez [facility] 09/02/2024 09:59:34 Problems Name Problem SNOMED Code Status Onset Date Resolution Date Notes Provider Name and Address Organization Details Recorded Time Osteoarthri tis of knee 336168609 Active 2023 Lui Batista PA-C [address], [place], [address], [facility] 4 12:34:21 Acute tear of medial meniscus of right knee 7288435890473 9100 Active 2023 Lui Batista PA-C [address], [place], [address], [facility] 4 14:00:09 Derangement of right knee 3011415140688 9109 Active 2023 Lui Batista PA-C [address], [place], [address], [facility] 4 14:00:20 Problem Notes None recorded. Procedures Surgical History Date Name Laterality Status Provider Name and Address Organization Details Recorded Time 07/04/2024 Sports Knee 4&1 completed Nathaly Norman PA-C [address], [place], [address], [facility] 07/04/2024 14:31:13 03/28/2024 Sports Knee 4&1 completed Nathaly Norman PA-C [address], [place], [address], [facility] 03/28/2024 16:02:25 Imaging Results None recorded. Procedure Notes None recorded. Medical Equipment None Reported. Allergies Allergen ID Allergen Name Allergen Category Reaction Reaction Severity Criticality Documentation Date Start Date Code Code System Note Provider Name and Address Organization Details Recorded Time 786529 morphine sulfate medicatio n Not available Not available Not available 05/17/20242023 04640 RxNorm Not Available [facility] 4 09:09:05 718185 rizatript an medicatio n Not available Not available Not available 07/04/2024 55782 [facility] 4 14:22:44 78015 Shellfish (substanc e) food,medi cation Not available Not available Not available 01/25/20242023 56442 9006 SNOMED Not Available [facility] 4 09:09:05 76900 latex environme nt,medica tion Not available Not available Not available 01/25/20242021 56997 91 RxNorm Not Available [facility] 4 14:15:15 Medications Name Sig Start Date [...] Not Available Not Av ailable Not Available [facility] ODT 75 mg disintegrat ing tablet [...] Updated DateTime 03/28/2024 187.96 cm 28.2 kg/m2 91058.32 g JOSE MANUEL MYAH [facility] 03/28/2024 15:49:24 Date Recorded Body height Body mass index (BMI) Body weight Provider Name and Address Organization Details Last Updated DateTime 07/04/2024 187.96 cm 28.2 kg/m2 67049.32 g TANK NASIR [facility] 07/04/2024 14:22:19 Date Recorded Body height Body mass index (BMI) Body weight Provider Name and Address Organization Details Last Updated DateTime 08/18/2024 187.96 cm 28.2 kg/m2 98603.32 g Lui Batista PA-C [address], [address] 08/18/2024 13:51:00 Date Recorded Body height Body mass index (BMI) Body weight Provider Name and Address Organization Details Last Updated DateTime 11/21/2024 187.96 cm 28.2 kg/m2 53531.32 g Lui Batista PA-C [address], [address], [facility] 11/21/2024 10:44:47 Social History None recorded. Functional Status None recorded. Mental Status None recorded. Family History Nothing Reported. Medical History Condition Response Allergies/Hayfever N Coronary Artery Disease N Breathing or lung disorders N Anxiety/Depression N Emphysema N Nerve Disorders N Thyroid Problems N COPD N Pacemaker N Kidney/Bladder Problems N Anemia N Vascular Disease N Heart Trouble N Heart Attack ([place]) N Gastrointestinal Disease N Cholesterol N Diabetes N Autoimmune disease N Bleeding Disorder N Orthotics N Seizures/Epilepsy N Arthritis N Blood Clot N AIDS/HIV N Congestive Heart Failure (CHF) N Acid Reflux (GERD) N Cancer N Stroke N Asthma N Peripheral Vascular Disease N Sleep Apnea Y Hepatitis N Heart Disease N Rheumatoid Arthritis N Pulmonary Embolism N Arrhythmia N Headaches Y Fibromyalgia N Hypertension Y Osteoporosis N Past Encounters Encounter ID Performer Location Encounter Start Date Encounter Closed Date Diagnosis/Indication Diagnosis SNOMED-CT Code Diagnosis ICD10 Code Diagnosis IMO Codes Diagnosis Note [id number] ARCELIA Rasmussen [address] [place] [address] 03/28/2024 15:40:42 03/28/2024 16:10:21 Pain of right knee joint 2738977980 13206 M25.561 Arthritis of right knee joint 2942427394 943763 M13.311 [id number] ARCELIA Rasmussen [address] [place] [address] 07/04/2024 14:11:10 08/01/2024 16:19:40 Osteoarthritis of right knee joint 5468451095 86755 M17.11 [id number] ARCELIA Junior [address] [place] [address] 08/18/2024 13:44:14 08/31/2024 09:42:47 Osteoarthritis of knee 102454553 M17.9 Acute tear of medial meniscus of right knee 2782989639 9177571 S83.241A Derangemen t of right knee 8677419794 9535268 M23.91 [id number] ARCELIA Junior [address] [place] [address] 11/21/2024 10:02:02 12/08/2024 10:10:53 Osteoarthritis of knee 045051311 M17.9 Health Concerns Section Related Observation LastModified by Organization Detai ls LastModified Time None Recorded Concern Status LastModified by Organization Details LastModified Time None Recorded Advance Directives Directive None Recorded Payers Insurance Date Sequence Insurance Name Policy Number Policy Hall Covered Member ID Hall Member ID Guarantor Name 12/08/2024 1 [employer] (POS II) [id number] Steve Cabral [id number] Steve Cabral 12/08/[address] [place] [address] [id number] Steve Cabral [id number] Steve Cabral Notes Date Note Type Note Provider Name and Address Organization Details Recorded Time 03/28/2024 text/html I am seeing the patient today under the supervision of Dr. Nguyễn who was available but who did not see the patient. HPI: Patient presents today regarding their right knee. They have had difficulty up and down stairs sitting standing. Problems ambulating. Gsby-jqv-qlajaeo medications are helping somewhat but not significantly. [...] scheduled. All questions answered Nathaly Norman PA-C [address] [place] [address] [facility], [place], [address], [facility] 03/28/2024 16:03:20 07/04/2024 text/html I am seeing the patient today under the supervision of Dr. Nguyễn who was available but who did not see the patient. HPI: Patient presents today regarding their right knee. They have had difficulty up and down stairs sitting standing. Problems ambulating. Hfno-rer-tsqhssy medications are helping somewhat but not significantly. [...] All questions answered Nathaly Norman PA-C [address] [facility] [address], [place], [address], [place] [facility] 07/04/2024 14:31:31 08/18/2024 text/html I am seeing [...] oriented x3. Normal insight, affect, and grooming. 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 No spasticity [...] views ordered and independently reviewed previously at [facility] of the right knee findings include: [...] the importance of compliance regarding home exercises. [employer] speech recognition table games shift manager software was used to create portions of this document. An attempt at proofreading has been made to minimize errors. Please call for corrections yeah okay good I think visually seeing you tomorrow we can check it Lui Batista PA-C [address] [facility] [address], [place], [address], [facility] [place] [facility] 08/18/2024 14:02:46 11/21/2024 text/html I am seeing [...] views ordered and independently reviewed previously at [facility] of the right knee findings include: [...] of repeat corticosteroid injection and possible viscosupplementation. [employer] speech recognition table games shift manager software was used to create portions of this document. An attempt at proofreading has been made to minimize errors. Please call for corrections yeah okay good I think visually seeing you tomorrow we can check it Lui Batista PA-C [address] [facility] [facility] [address], [place], [address], [facility] [place] [facility] 11/21/2024 11:08:01
--- OUTSIDE RECORDS SUMMARY | 2025-10-12 20:39 | XMS_ITS | Patient Health Record ---
Author Organization [facility] Address [address] [place] [address] Care Team Providers Care Curb Supervisor Name Role Phone Luke Almonte MD Primary Care Provider Anibal Dale Unavailable [phone] Allergies Allergen (clinical drug ingredient) Drug/Non Drug [...] Date Coverage End Date [employer] [address] [place] [address] [id number] 100 Steve Cabral Self - patient is the insured [facility] [address] [place] [address] [place] [address] [id number] Honey Grimes Spouse - patient is the spouse of the insured Medical (General) History Medical History History ICD Code Back,Hip,and Knee pain Broken bones Cataracts covid-19 Diverticulosis Gout Migraines High blood pressure Reflux ( GERD) Joint implants/screws Sleep apnea Surgical History Surgery Date(Month/Year) Diverticulosis 04/23/2000 Bone Spurs 2015 [place] History Reason [place] [facility] [place] to [place] 0 [place]/23-05/30/2000
== END 2025-10-12 15:32 | disposition home or self-care (01) ==
LOC: HO.LNP 15:31
PROVIDERS: Visit Provider Internal Medicine
DX: N39.0 Urinary tract infection, site not specified (principal)
CPT/HCPCS: 81001; 87086; 87088; 87186